=== PATIENT | male | born 1935 | race Caucasian/White ===

== ENCOUNTER 2016-05-11 10:36 | Inpatient (IN) ==
[2016-05-11] MEDS ORDERED: Furosemide 40 MG/4 ML VIAL IVP ONE (11:26)
--- NOTE | 2016-05-11 11:27 | Emergency Department Note ---
Disposition Clinical Impression: Acute on chronic renal failure, Urinary retention, Multiple falls Closed right femoral fracture Qualifiers: Encounter type: initial encounter Femur location: neck Qualified Code(s): S72.001A - Fracture of unspecified part of neck of right femur, initial encounter for closed fracture Disposition: Admitted As Inpatient Condition: Fair Time of Disposition: 12:57 General Adult HPI - General Chief complaint: ED Extremity Injury, Lower Stated complaint: fall, L leg pain Source: patient, family Limitations: no limitations Nursing Notes Reviewed: Yes Vital Signs Reviewed: Yes - History of Present Illness HPI Narrative: 72-year-old male history of A. fib, not on anticoagulants, CHF, gout, presents with left and right extremity pain, patient had a previous workup from fall, pain with weightbearing on his left leg. Is a history of a left hip surgery, status post port postop arthroplasty, states at this time 2 days ago he fell onto his right hip again out of bed. Fell onto padded carpet. Denies any head or neck injury or loss of consciousness. Denies chest pain, but he has had some shortness of breath recently. He also states that he has had increased fluid on his abdomen, increased swelling in his bilateral ankles. She does report that he has had decreased urinary output, and is urinating the last day. Remote history of prostate cancer. Patient denies weight loss, fever, chills, productive cough, hematuria, hematochezia, Onset (ago): day(s) (2) Location: left, right, lower extremity Pain Scale: 5 Improves with: nothing Worsens with: nothing Associated symptoms: Reports: cough, shortness of breath. Denies: malaise, nausea/vomiting, syncope - Related Data Home Medications Medication Instructions Recorded Confirmed Allopurinol [Zyloprim] 100 mg PO DAILY 05/11/16 05/11/16 Calcitriol [Rocaltrol] 0.25 mcg PO DAILY 05/11/16 05/11/16 Diltiazem HCl [Cartia Xt] 240 mg PO DAILY 05/11/16 05/11/16 Diphenhydramine HCl [Nighttime 100 mg PO HS 05/11/16 05/11/16 Sleep Aid] Famotidine [Acid Procurement Specialist] 10 mg PO DAILY 05/11/16 05/11/16 Folic Acid 1,200 mcg PO DAILY 05/11/16 05/11/16 Furosemide [Furosemide] 40 mg PO BID 05/11/16 05/11/16 HYDROcodone/Acet 5/325 mg [[place] 1 tab PO QID PRN 05/11/16 05/11/16 5-325 mg] Megestrol Acetate [Megace] 400 mg PO BID 05/11/16 05/11/16 Metoprolol Succinate [Toprol Xl] 100 mg PO BID 05/11/16 05/11/16 Tamsulosin [Flomax] 0.4 mg PO DAILY 05/11/16 05/11/16 TraZODone 50 mg PO HS 05/11/16 05/11/16 Allergies Allergy/AdvReac Type Severity Reaction Status Date / Time No Known Allergies Allergy Verified 05/06/16 12:16 Review of Systems: A 14 point ROS was obtained and was negative except as per below or as documented in the HPI. Constitutional: Denies: fever, chills, weakness, weight change Eyes: Denies: eye pain, eye discharge, vision change ENT: Denies: ear pain, throat pain, hearing loss, epistaxis, congestion, Cardiovascular: Denies: chest pain, palpitations, dyspnea on exertion, edema, syncope Respiratory: dyspnea Denies: cough, , wheezes, hemoptysis, stridor Gastrointestinal: Denies: abdominal pain, nausea, vomiting. diarrhea, constipation, hematemesis, hematochezia Genitourinary: hesitency Denies: urgency, dysuria, frequency, hematuria Musculoskeletal: Denies: back pain, neck pain, arthralgia, myalgia Integumentary: Denies: rash, abrasion, lesions Neurological: Denies: headache, weakness, numbness, paresthesias, confusion, abnormal gait Psychiatric: Denies: anxiety, depression, suicidal thoughts, homicidal thoughts , Endocrine: Denies: fatigue Hematological/Lymphatic: Denies: easy bleeding, easy bruising Allergic/Immunologic: Denies: facial swelling, urticaria All systems ED: reviewed and negative except as stated. Past Medical History - Past Medical History Attestation: Yes The following information was validated with the patient. Source: patient Medical history: Reports: arthritis, asthma, atrial fibrillation, cancer, CVA, hypertension Psychiatric history: Reports: no psych history - Social History Smoking Status: Former smoker Smokeless Tobacco Status: No Alcohol use: Reports: none Drug use: Reports: none Physical Exam General: alert and oriented, in NAD, appears stated age, is pleasant and cooperative to exam Head: NCAT, no lesions Eyes: sclera anicteric, conjunctiva normal, PERRLA bilaterally, EOMI Bilaterally Ears: normal inspection, external ear wnl Nose: nasal septum nondeviated, sinuses nontender Throat: good dentition, mucous membranes moist Neck: no lymphadenopathy, trachea midline no deviation, no JVD Resp: CTA bilaterally, no resp distress, symmetric chest rise, no wheezes, rales , or rhonchi bilaterally CV: Irregularly irregular normal S1 and S2, no m/g/r, Pulses +2 Rad, +2 DP/PT Abdomen: Soft, mildly distended no tenderness to palpation no hepatosplenomegaly , no hernias, Negative Rovsing's sign, Negative Jean's sign Back: normal inspection, no tenderness to palpation, Negative CVA tenderness bilaterally Neuro: A&O3, CN II-XII grossly intact bilaterally, no motor or sensory deficits bilaterally, gait normal, GCS 15 [id number] Ext: normal inspection, symmetric Active and Passive ROM UE and LE bilaterally , +2 pitting edema bilaterally Psych: normal mood, normal affect Skin: No rashes, skin warm, dry, intact - General Limitations: no limitations General appearance: alert, in no apparent distress Course Course Narrative: 80-year-old male with multiple falls in the last week, shortness of breath, concerns for worsening CHF, and IV diuresis, basic lab work with chest pain workup chest x-ray EKG reviewed shows no ST segment changes, right bundle branch block and A. fib, who will get imaging of his hips and right hip specifically and pelvis, also having right knee imaging. The patient on workup patient may need to come in for further eval. - Reevaluation(s) Reevaluation #1: I spoke with , his recommendation was to start IV antibiotics if urinalysis is positive, this point we are still placed a Hammer catheter, but he except the patient for admission for acute on chronic renal failure, volume overload dyspnea and hypoxia, right femoral neck fracture. Time: 12:56 - Consultations Consultation #1: Spoke with Dr. Stroud , he will see the patient on the floor, with Orthoconsultation, will need medical clearance prior to surgery. Vital Signs Temperature 96.7 F L 05/11/16 10:53 Pulse Rate 87 05/11/16 10:53 Respiratory Rate 20 05/11/16 10:53 Blood Pressure 90/59 05/11/16 10:53 O2 Sat by Pulse Oximetry 95 05/11/16 10:53 Temperature 96.7 F L 05/11/16 10:53 Pulse Rate 70 05/11/16 12:59 Respiratory Rate 14 05/11/16 12:59 Blood Pressure 89/67 05/11/16 12:59 O2 Sat by Pulse Oximetry 93 L 05/11/16 12:59 Oxygen Delivery Oxygen Delivery Nasal Cannula Medical Decision Making - MDM Narrative Medical decision making narrative: 80-year-old male with multiple falls, found to have a right closed femoral neck fracture, or those consultative, patient also has dyspnea, requiring 2 L of oxygen by nasal cannula, showing to be volume overloaded with vascular congestion on chest x-ray, lower extremity edema, acute on chronic renal failure , Hammer placed, treated UTI with antibiotics if indicated, admitted to medicine service in stable condition. - Lab Data Result diagrams: 05/11/16 11:32 05/11/16 11:32 Lab Results 05/11/16 05/11/16 05/11/16 Range/Units 11:32 11:32 11:32 WBC 13.0 H (4.3-11.1) K/mcL RBC 3.89 L (4.19-5.50) M/mcL Hgb 12.5 L D (12.9-16.9) g/dL Hct 39.3 (37.5-50.1) % MCV 101.0 H (83.0-100.0) fL MCH 32.1 (28.0-33.3) pg MCHC 31.8 (31.6-35.5) g/dL RDW 14.3 (11.5-14.5) % Plt Count 192 (140-400) K/mcL MPV 9.3 L (9.4-12.4) fL Immature Gran % 0.4 (0-4) % Seg Neutrophils % 86.5 % Lymphocytes % 5.3 % Monocytes % 6.2 % Eosinophils % 1.1 % Basophils % 0.5 % Neutrophils # 11.2 H (1.6-8.9) K/mcL Lymphocytes # 0.7 (0.6-4.6) K/mcL Monocytes # 0.8 (0.0-1.3) K/mcL Eosinophils # 0.1 (0.0-0.6) K/mcL Basophils # 0.1 (0.0-0.2) K/mcL Sodium 136 (136-145) mEq/L Potassium 5.5 H (3.5-4.5) mEq/L Chloride 105 (98-109) mEq/L Carbon Dioxide 19 (19-29) mEq/L BUN 78 H (8-26) mg/dL Creatinine 3.96 H (0.72-1.25) mg/dL Est GFR ( Amer) 18 L (> 60) Est GFR (Non-Af Amer) 15 L (> 60) BUN/Creatinine Ratio 20 (6-26) Glucose 120 H (70-99) mg/dL Calculated Osmolality 307 H (280-300) Lactic Acid (0.5-2.2) mmol/L Uric Acid (3.5-7.2) mg/dL Calcium 9.4 (8.6-10.8) mg/dL Troponin I 0.02 (0-0.03) ng/mL B-Natriuretic Peptide (0-100) pg/mL 05/11/16 05/11/16 05/11/16 Range/Units 11:32 11:33 12:30 WBC (4.3-11.1) K/mcL RBC (4.19-5.50) M/mcL Hgb (12.9-16.9) g/dL Hct (37.5-50.1) % MCV (83.0-100.0) fL MCH (28.0-33.3) pg MCHC (31.6-35.5) g/dL RDW (11.5-14.5) % Plt Count (140-400) K/mcL MPV (9.4-12.4) fL Immature Gran % (0-4) % Seg Neutrophils % % Lymphocytes % % Monocytes % % Eosinophils % % Basophils % % Neutrophils # (1.6-8.9) K/mcL Lymphocytes # (0.6-4.6) K/mcL Monocytes # (0.0-1.3) K/mcL Eosinophils # (0.0-0.6) K/mcL Basophils # (0.0-0.2) K/mcL Sodium (136-145) mEq/L Potassium (3.5-4.5) mEq/L Chloride (98-109) mEq/L Carbon Dioxide (19-29) mEq/L BUN (8-26) mg/dL Creatinine (0.72-1.25) mg/dL Est GFR ( Amer) (> 60) Est GFR (Non-Af Amer) (> 60) BUN/Creatinine Ratio (6-26) Glucose (70-99) mg/dL Calculated Osmolality (280-300) Lactic Acid 1.2 (0.5-2.2) mmol/L Uric Acid 7.5 H (3.5-7.2) mg/dL Calcium (8.6-10.8) mg/dL Troponin I (0-0.03) ng/mL B-Natriuretic Peptide 313 H (0-100) pg/mL - Radiology Data Radiology results reviewed: Yes I reviewed the patient's radiology results. Chest X-Ray 05/11/16 11:17 IMPRESSION: Vascular congestion. D/ / 05/11/2016 12:34:30 Carlin Estrada MD / zoe Interpreting Provider: Carlin Estrada MD Hip X-Ray 05/11/16 11:22 IMPRESSION: Right femoral neck fracture. D/ / 05/11/2016 12:33:03 Carlin Estrada MD / oral Interpreting Provider: Carlin Estrada MD Knee X-Ray 05/11/16 11:23 IMPRESSION: No acute osseous abnormality. D/ / 05/11/2016 12:33:40 Carlin Estrada MD / oral Interpreting Provider: Carlin Estrada MD - EKG Data EKG #1 EKG attestation: Yes I reviewed and interpreted this EKG. Rate: normal (61 bpm, irregularly irregular) Rhythm: A.Fib [place]/QRS: RBBB (Sabel from previous EKG on 05/06/2016) Interpretation: unchanged when compared to prior tracing (date) - Core Measures AMI Core Measures Followed: No Measure Exclusions: not indicated Critical Care Time Critical Care Time: Yes Total Critical Care Time: 35 Attestation: treatment of hypotension, hip fracture, and CHF. Attestation Statement - Attestation Attestation: Patient was seen with resident physician. I reviewed the history, physical, assessment and plan, and agree with the findings. I also personally evaluated this patient and had [id number] time with this patient. Justo is a 80-year- old male who presents emergency Department after falling. He got up out of bed tripped and fell landing on his left hip. Now with left hip and knee pain and difficulty ambulating. Also notes that he has had worsening shortness of breath for the last 1 week. He has a history of CHF he is not making much urine. And his is concerned about that. He also has increased swelling lower extremities bilaterally. On examination patient's mental status is good. His heart and lungs heart is normal, lungs decreased air movement with some increased work of breathing. Abdomen is soft and nontender. Extremities tender in the left hip. Mild swelling bilaterally. Distal pulses are intact. Workup on this patient revealed a variety of abnormalities he has known A. fib. But appears to be in worsening CHF. His blood pressure is also lower, and his renal function has worsened considerably. In addition he has a compressed femoral neck fracture. Due to his variety of comorbidities and need for surgical correction, as well as fluid imbalance correction, he will be admitted. Discussed with Ortho and Hospitalist. Agree present physician assessment and plan. Critical care time 35 minutes.
[2016-05-11 11:39] LABS: Basophils # 0.1 K/mcL (0.0-0.2); Basophils % 0.5 %; Eosinophils # 0.1 K/mcL (0.0-0.6); Eosinophils % 1.1 %; Hematocrit 39.3 % (37.5-50.1); Hemoglobin 12.5 g/dL (12.9-16.9); Immature Granulocytes % 0.4 % (0-4); Lymphocytes # 0.7 K/mcL (0.6-4.6); Lymphocytes % 5.3 %; Mean Corpuscular HGB Conc 31.8 g/dL (31.6-35.5); Mean Corpuscular Hemoglobin 32.1 pg (28.0-33.3); Mean Platelet Volume 9.3 fL (9.4-12.4); Monocytes # 0.8 K/mcL (0.0-1.3); Monocytes % 6.2 %; Neutrophils # 11.2 K/mcL (1.6-8.9); Platelet Count 192 K/mcL (140-400); Red Blood Count 3.89 M/mcL (4.19-5.50); Red Cell Distribution Width 14.3 % (11.5-14.5); Segmented Neutrophils % 86.5 %
[2016-05-11 11:54] LABS: Calcium 9.4 mg/dL (8.6-10.8); Potassium 5.5 mEq/L (3.5-4.5)
[2016-05-11] MEDS ORDERED: 0.9 % Sodium Chloride 500 ML IV ONE (12:35)
[2016-05-11 13:28] LABS: Bilirubin,Urine Moderate (Negative); Blood,Urine Negative (Negative); Clarity,Urine Clear (Clear); Color,Urine Dark Yellow (Yellow); Glucose,Urine (UA) Normal (Normal); Ketones,Urine Negative (Negative); Leukocyte Esterase,Urine Trace (Negative); Nitrite,Urine Negative (Negative); PH,Urine 5.5 pH Units (5.0-8.0); Protein,Urine Negative (Neg-Trace); Specific Gravity,Urine 1.022 (1.010-1.025); Urobilinogen,Urine Normal (Normal)
[2016-05-11 13:30] LABS: Bacteria,Urine None Seen per hpf (None-Few); Hyaline Casts,Urine Few per lpf (None-Few); Squamous Epithelial Cell,Urine Many per lpf (None-Few); WBC,Urine 0-3 per hpf (0-3)
[2016-05-11] MEDS ORDERED: Ondansetron 4 MG/2 ML VIAL IVP PRN (14:19)
[2016-05-11] MEDS ORDERED: Naloxone 0.4 MG/ML INJ IVP PRN (14:19)
[2016-05-11] MEDS ORDERED: *HR* Morphine 2 MG/ML SYRINGE IVP PRN (14:19)
--- NOTE | 2016-05-11 14:43 | Internal Med History&Physical ---
<Doc Lucas - Last Filed: 05/11/16 14:40> Date of Encounter: 05/11/16 Time of Encounter: 14:40 Assessment and Plan (1) Hip fracture Current visit: Yes Status: Acute right femoral neck fracture. Currently hemodynamically stable. neurovasculature intact. consult orthopedic surgery Pain control performed surgical risk calculation with NSQUIP. At this time we would recommend that the benefit of surgery would out weigh the risk. Recommend continue Beta zina in the perioperative period. would also recommend holding off on surgery until patient has echocardiogram and also seen and evaluated by Nephrology. (2) Acute worsening of stage 3 chronic kidney disease Current visit: Yes Status: Acute CHAVO on CKD From the history I think this is likely from a combination of NSAIDS and Diuretics. He had zuleta placed and had very little urine out on insertion. Very dark urine Possibly ATN? Plan: Gentle IV hydration avoid all nephrotoxin check FeURea and urine eosinophils. US to r/o obstruction given his history of prostate Cancer. check Uric acid. Continue zuleta as we will need strict I's and O's check UA and Pr/Cr ratio. Consult Nephrology. I appreciate Dr. Leon's assistance. (3) Dyspnea Current visit: Yes Status: Acute Etiology possibly from volume overload. Has BNP of 313. CXr surrestive of RLL air space disease and possibly pulmonary vascular congestion. I reviewed this image myself. Not very impressive for volume overload. Will give Rocephin IV for possible CAP. (4) Community acquired pneumonia Current visit: Yes Status: Acute as stated above (5) Hyperkalemia Current visit: Yes Status: Acute 30 grams of Kayexalate now. 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 (7) Gout Current visit: Yes Status: Acute hold off on treatment at this time as he dose not appear to be in acute flair (8) Atrial fibrillation Current visit: Yes Status: Acute currently rate controlled. Not on antcoagulation as he has had a history of brain bleeding. (9) Edema Current visit: Yes Status: Acute etiology likely from renal failure. However will get Echo to r/o heart failure. (10) DVT prophylaxis Current visit: Yes Status: Acute SQ heparin Internal Medicine - H&P: HPI Chief complaint: fall Admitted From: Emergency Dept Plans for Post Hospital Care: Home History of present illness: Mr. Leon is a 80 year old male with past medical history that is significant for atrial fibrillation, not on anticoagulation due to past hemorrhagic strokes 2, CJD stage III, gout, chronic low back pain, who comes to the ER with the chief complaint of fall and hip pain. His is also present who confirms the history. States that over the past week he has been becoming progressively edematous. Also complains of some exertional dyspnea. States that he had a gout flare approximately a week ago and has been taking between 150-200 mg and indomethacin daily. He states that he has not made any urine over the past 2 days. He denies any fevers chills or productive cough, wheeze, malaise. He denies any dysuria hematuria but does admit to change in urinary habits with decreased urination over the past 2-3 days. He denies any other recent med change other than the addition of trazodone to help with sleep at night. He denies taking any other NSAIDs. He denies any recent illnesses hospitalizations or CT scans with dye. He denies any trauma or head injury or loss of consciousness with the fall. He states it was a mechanical fall as he was trying to put on his underwear this happened. His confirms his story as well. He has no further complaints at this time. At this time he says he is comfortable and pain-free. He has no further complaints. ER course Patient has received 40 mg of Lasix IV. He is also had 500 mL of normal saline. He did have a Zuleta catheter placed there is approximately 30 mL in the Zuleta bag at this time and is dark and cola Colored Past Med Surg Social Fam HX - Past Medical History Medical history: arthritis, asthma, atrial fibrillation, cancer, CVA, hypertension Psychiatric history: no psych history - Past Surgical History Surgical History: other (Cholecystectomy, back surgery, brachytherapy for prostate cancer, skin biopsy, left total hip) - Social History Smoking Status: Former smoker Smokeless Tobacco Status: No Alcohol use: none Drug use: none Internal Medicine - H&P: Meds Allopurinol [Zyloprim] 100 mg PO DAILY 05/11/16 [History] Calcitriol [Rocaltrol] 0.25 mcg PO DAILY 05/11/16 [History] Diltiazem HCl [Cartia Xt] 240 mg PO DAILY 05/11/16 [History] Diphenhydramine HCl [Nighttime Sleep Aid] 100 mg PO HS 05/11/16 [History] Famotidine [Acid Irrigation Manager] 10 mg PO DAILY 05/11/16 [History] Folic Acid 1,200 mcg PO DAILY 05/11/16 [History] Furosemide [Furosemide] 40 mg PO BID 05/11/16 [History] HYDROcodone/Acet 5/325 mg [[place] 5-325 mg] 1 tab PO QID PRN 05/11/16 [History] Megestrol Acetate [Megace] 400 mg PO BID 05/11/16 [History] Metoprolol Succinate [Toprol Xl] 100 mg PO BID 05/11/16 [History] Tamsulosin [Flomax] 0.4 mg PO DAILY 05/11/16 [History] TraZODone 50 mg PO HS 05/11/16 [History] Allergies No Known Allergies Allergy (Verified 05/06/16 12:16) All Systems PM: A 10-system review of systems was performed and is negative for pertinent findings except as documented above in the HPI. Review of systems: HEENT: Denies headache or neck pain, denies sore throat, denies hearing or vision change, Heart: Denies chest pain, exertional dyspnea, palpitations, orthopnea, paroxysmal nocturnal dyspnea, syncope, presyncope. Lungs: As per history of present illness GI: Denies nausea vomiting diarrhea constipation melena bloody stool : Denies dysuria hematuria or change in frequency denies difficulty in urination. Musculoskeletal: As per history of present illness Integument: Denies rashes lesions or changes to the skin. Neurological: Denies focal motor or sensory deficits. Denies seizures. Psychological: Denies depression, anxiety, mood swings. Constitutional: Denies fevers chills, night sweats, weight loss, or weight gain. Denies malaise. - Constitutional Vitals: Temp Pulse Resp BP Pulse Ox 97.4 F L 73 18 103/72 95 05/11/16 14:20 05/11/16 14:20 05/11/16 14:20 05/11/16 14:20 05/11/16 14:20 Exam: General: This is a well-developed well-nourished 80-year-old male is currently lying in bed in the emergency department. He is alert and orientated to person place time and situation. He is in no acute distress at this time. HEENT: Head is normocephalic atraumatic. Anicteric sclera, pupils equally round reactive to light and accommodation, moist mucous membranes, the tongue and trachea are midline. There is no cervical submandibular or supraclavicular lymphadenopathy palpable on exam. Heart: Heart has a regular rate and rhythm without murmurs rubs or gallops. No JVD. No carotid bruits. Radial pulses are 2 out of 4 and synchronous. Lungs: The lungs do have some mild crackles at the bases. He has a normal effort of breathing speaks in full sentences. Abdomen: The abdomen is mildly distended, bowel sounds are positive, no tenderness to palpation over no organomegaly or bruits noted. Musculoskeletal: Grossly normal for age. He does have a deformity of the right leg as he has shortened and externally rotated lower extremity. Otherwise no deformities noted. Integument: No rashes or lesions noted. Extremities: He does have a 2+ pitting pedal edema up to the level of the knee bilaterally. No clubbing or cyanosis. Internal Med - H&P Results - Labs CBC & Chem 7: 05/11/16 11:32 05/11/16 11:32 Labs: Urine 05/11/16 Range/Units 13:20 Urine Color Dark Yellow (Yellow) Urine Clarity Clear (Clear) Urine pH 5.5 (5.0-8.0) pH Units Ur Specific [place] 1.022 (1.010-1.025) Urine Protein Negative (Neg-Trace) mg/dL Urine Glucose (UA) Normal (Normal) mg/dL <Royce Hart - Last Filed: 05/11/16 17:16> Date of Encounter: 05/11/16 Assessment and Plan (1) Acute renal failure due to tubular necrosis Current visit: Yes Status: Suspected Hydrate cautiously. Monitor I/Os. (2) Hyperkalemia Current visit: Yes Status: Acute (3) Atrial fibrillation Current visit: Yes Status: Acute Qualifiers: Atrial fibrillation type: chronic Qualified Code(s): I48.2 - Chronic atrial fibrillation (4) Community acquired pneumonia Current visit: Yes Status: Acute (5) Fracture of femoral neck Current visit: Yes Status: Acute Qualifiers: Encounter type: initial encounter Fracture type: closed Laterality: right Qualified Code(s): S72.001A - Fracture of unspecified part of neck of right femur, initial encounter for closed fracture (6) Multiple falls Current visit: Yes Status: Acute (7) DVT prophylaxis Current visit: Yes Status: Acute Internal Medicine - H&P: HPI History of present illness: Mr. Leon is a 80 year old male All Systems PM: A 10-system review of systems was performed and is negative for pertinent findings except as documented above in the HPI. - Constitutional Vitals: Temp Pulse Resp BP Pulse Ox 97.4 F L 73 18 103/72 95 05/11/16 14:20 05/11/16 14:20 05/11/16 14:20 05/11/16 14:20 05/11/16 14:20 Internal Med - H&P Results - Labs CBC & Chem 7: 05/11/16 11:32 05/11/16 11:32 Labs: Liver Function 05/11/16 Range/Units 14:59 Total Bilirubin 0.8 (0.2-1.2) mg/dL Direct Bilirubin 0.5 (0.0-0.5) mg/dL AST 12 (5-34) Units/L ALT 15 (0-55) Units/L Alkaline Phosphatase 97 (38-126) Units/L Albumin 2.7 L (3.5-5.0) g/dL Urine 05/11/16 Range/Units 13:20 Urine Color Dark Yellow (Yellow) Urine Clarity Clear (Clear) Urine pH 5.5 (5.0-8.0) pH Units Ur Specific [place] 1.022 (1.010-1.025) Urine Protein Negative (Neg-Trace) mg/dL Urine Glucose (UA) Normal (Normal) mg/dL - Impressions ITS Impressions Retroperitoneum Ultrasound 05/11/16 14:36 IMPRESSION: 1. No evidence of obstruction. 2. Increased cortical echogenicity consistent with medical renal disease. D/ / Edgardo Noble / Edgardo Noble Interpreting Provider: Edgardo Noble - Attending Attestation I examined this patient and my medical decision-making was reviewed with the Resident Physician. I agree with the documented findings, disposition and treatment plan as described except to the extent set forth below. Mr. Leon is a 80 y/o male with a history of atrial fibrillation (not on anticoagulation due to 2 prior hemorrhagic CVAs) presented to ED after a fall. He was trying to put on his underwear and had a mechanical fall on his R side. He was brought to ED and found to have a R femoral neck fracture. His other history is significant for a recent gout flare approximately 2 weeks ago. He has been taking Indomethacin 150-200mg daily for this condition. He has noticed increasing edema over the last week and decreased urine output over last 2 days. No CP. No cough. Exam Alert. Pleasant Mild resp distress at rest in bed Mucus membranes moist Heart irreg - no overt murmur Lungs diminished R base with scant crackles bilaterally Abd soft and nontender Edema present Labs from ED reviewed I/P 1. Acute renal failure - most likely ATN or AIN related to indocin. Cautious IV fluids. No diuretics at this time. Renal ultrasound does not show obstruction. Strict I/Os. 2. Acute fracture R femoral neck - ortho consult. 3. Chronic a fib 4. Gout - not in exacerbation. 5. Hyperkalemia - Kayexalate given. Other diagnoses and plan as above. Pt is currently seriously ill with acute renal failure. He is at high risk for respiratory decompensation and need for dialysis. He also is at high risk for complications from acute femur fracture.
[2016-05-11] MEDS: *HR* Heparin 5,000 UNIT/ML VIAL SQ SCH ×2 (15:31→23:33)
[2016-05-11] MEDS: *HR* OxyCODONE Immed Rel 5 MG TABLET PO PRN ×2 (15:31→23:51)
[2016-05-11] MEDS: 0.9 % Sodium Chloride 1,000 ML IVC SCH (15:34)
[2016-05-11 15:36] LABS: Albumin 2.7 g/dL (3.5-5.0); Albumin/Globulin Ratio 0.7 (1.1-2.2); Bilirubin,Direct 0.5 mg/dL (0.0-0.5); Bilirubin,Indirect 0.3 mg/dL (0.0-1.2); Bilirubin,Total 0.8 mg/dL (0.2-1.2); Globulin 3.8 g/dL (2.4-3.5); Total Protein 6.5 g/dL (6.0-8.3)
[2016-05-11 17:45] LABS: Calcium 9.1 mg/dL (8.6-10.8); Potassium 5.2 mEq/L (3.5-4.5)
[2016-05-11] MEDS: Megestrol Acetate 400 MG/10 ML UDC PO SCH (20:35)
[2016-05-11] MEDS: Metoprolol XL (24 HR) Succ 50 MG TAB.ER.24H PO SCH (20:35)
[2016-05-11] MEDS ORDERED: traZODone 50 MG TABLET PO SCH (21:00)
[2016-05-12] MEDS: 0.9 % Sodium Chloride 1,000 ML IVC SCH (05:45)
[2016-05-12 05:55] LABS: Eosinophils # 0.2 K/mcL (0.0-0.6); Hematocrit 36.9 % (37.5-50.1); Hemoglobin 11.5 g/dL (12.9-16.9); Mean Corpuscular HGB Conc 31.2 g/dL (31.6-35.5); Mean Corpuscular Hemoglobin 31.7 pg (28.0-33.3); Mean Corpuscular Volume 101.7 fL (83.0-100.0); Mean Platelet Volume 9.3 fL (9.4-12.4); Monocytes # 0.6 K/mcL (0.0-1.3); Platelet Count 187 K/mcL (140-400); Red Blood Count 3.63 M/mcL (4.19-5.50); Red Cell Distribution Width 14.2 % (11.5-14.5)
[2016-05-12 06:05] LABS: INR 1.1; Prothrombin Time 12.4 Seconds (9.4-12.1)
[2016-05-12 06:19] LABS: Albumin 2.7 g/dL (3.5-5.0); Albumin/Globulin Ratio 0.8 (1.1-2.2); Bilirubin,Total 0.8 mg/dL (0.2-1.2); Calcium 8.7 mg/dL (8.6-10.8); Globulin 3.3 g/dL (2.4-3.5); Magnesium 2.4 mg/dL (1.6-2.6); Phosphorous 5.3 mg/dL (2.3-4.7)
[2016-05-12 06:26] LABS: Lymphocytes # 0.6 K/mcL (0.6-4.6); Platelet Estimate Normal (Normal)
[2016-05-12 06:27] LABS: Large Platelets Present (Not Present); Microcytosis Present (Not Present)
[2016-05-12] MEDS: *HR* OxyCODONE Immed Rel 5 MG TABLET PO PRN (06:51)
[2016-05-12] MEDS: Metoprolol XL (24 HR) Succ 50 MG TAB.ER.24H PO SCH ×2 (07:34→23:02)
[2016-05-12] MEDS: Megestrol Acetate 400 MG/10 ML UDC PO SCH ×2 (07:51→07:54)
[2016-05-12] MEDS: *HR* Heparin 5,000 UNIT/ML VIAL SQ SCH (07:52)
--- NOTE | 2016-05-12 08:51 | Internal Med Progress Note ---
Date of Encounter: 05/12/16 Time of Encounter: 08:15 - Assessment and plan (1) Acute renal failure due to tubular necrosis Current Visit: Yes Status: Suspected Assessment and plan: Creatinine did not improve much overnight. Has been receiving IV fluids at a slow rate during the night. Ultrasound did not show obstruction. Renal to see today. Holding nephrotoxins. Pt seems more dyspneic this morning so will decrease IV rate. (2) Hyperkalemia Current Visit: Yes Status: Acute Assessment and plan: Persists but he is still having loose stools from Kayexalate yesterday. Following. (3) Atrial fibrillation Current Visit: Yes Status: Acute Assessment and plan: Cardiology consult for preop eval. Echo to be done today as well. Currently rate controlled. 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 Qualifiers: Atrial fibrillation type: chronic Qualified Code(s): I48.2 - Chronic atrial fibrillation (4) Community acquired pneumonia Current Visit: Yes Status: Acute Assessment and plan: On IV Ceftriaxone. Will recheck portable CXR today. (5) Fracture of femoral neck Current Visit: Yes Status: Acute Assessment and plan: Pt not medically optimized for surgery at this time. His renal function is still terrible and his K is still slightly elevated. Hopefully will be able to have repaired in next 1-2 days. Qualifiers: Encounter type: subsequent encounter Fracture type: closed Laterality: right Qualified Code(s): S72.001D - Fracture of unspecified part of neck of right femur, subsequent encounter for closed fracture with routine healing (6) Insomnia due to medical condition Current Visit: Yes Status: Acute Assessment and plan: PRN medication ordered. (7) Multiple falls Current Visit: Yes Status: Acute Assessment and plan: Will have PT/OT evals post surgery. (8) CKD (chronic kidney disease) Current Visit: No Status: Chronic Qualifiers: Chronic kidney disease stage: stage 3 (moderate) Qualified Code(s): N18.3 - Chronic kidney disease, stage 3 (moderate) (9) DVT prophylaxis Current Visit: Yes Status: Acute Assessment and plan: Subqu heparin - Subjective Interval history: Mr. Leon is currently admitted for acute R femoral neck fracture complicated by acute renal failure. He is high risk due to continued renal failure with hyperkalemia as well as apparent early fluid overload, presumed CAP and acute fracture. Mr. Leon did not sleep well due to pain and loose stools (from Kayexalate). States his breathing is normal for him at this time. Pain is currently controlled with current regimen. No CP. No abd pain. Has had urine output but not very much overall (he is over 600ml positive fluid balance). His K is still slightly elevated. He is still not medically optimized for surgery due to his renal function. He is to have echocardiogram today and cardiology and nephrology have been consulted. - Constitutional Vitals: Temp Pulse Resp BP Pulse Ox 97.7 F 81 18 98/53 96 05/12/16 07:12 05/12/16 07:12 05/12/16 07:12 05/12/16 07:12 05/12/16 07:12 General appearance: Present: mild distress, A&O X 3, pleasant, answers questions appropriately - Head Head exam: Present: normocephalic - Eye Eye exam: Present: EOMI, conjuntiva pink - ENT ENT exam: Present: mucous membranes dry - Neck Additional comments: No JVD noted at this time. - Respiratory Respiratory exam: Present: decreased breath sounds. Absent: rhonchi, wheezes Additional comments: Scant rales in bases. - Cardiovascular Cardiovascular exam: Present: irregular rhythm. Absent: tachycardia - GI/Abdominal GI/Abdominal exam: Present: hyperactive bowel sounds, soft. Absent: mass, tenderness - Extremities Exam Extremities exam: Present: warm. Absent: pedal edema - Neurological Exam Neurological exam: Present: alert, oriented X3 - Psychiatric Psychiatric exam: Present: normal affect, normal mood - Skin Skin exam: Present: dry, warm. Absent: rash Internal Medicine: Result - Labs CBC & Chem 7: 05/12/16 05:41 05/12/16 05:41 Labs: Short CBC 05/12/16 Range/Units 05:41 WBC 10.5 (4.3-11.1) K/mcL Hgb 11.5 L (12.9-16.9) g/dL Hct 36.9 L (37.5-50.1) % Plt Count 187 (140-400) K/mcL Neutrophils # 9.0 H (1.6-8.9) K/mcL BMP 05/11/16 05/12/16 17:23 05:41 Sodium 138 139 Potassium 5.2 H 5.0 H Chloride 104 106 Carbon Dioxide 22 24 BUN 80 H 83 H Creatinine 4.00 H 3.99 H Glucose 139 H 128 H Calcium 9.1 8.7 Liver Function 05/11/16 05/12/16 Range/Units 14:59 05:41 Total Bilirubin 0.8 0.8 (0.2-1.2) mg/dL Direct Bilirubin 0.5 (0.0-0.5) mg/dL AST 12 8 (5-34) Units/L ALT 15 11 (0-55) Units/L Alkaline Phosphatase 97 130 H (38-126) Units/L Albumin 2.7 L 2.7 L (3.5-5.0) g/dL Urine 05/11/16 Range/Units 13:20 Urine Color Dark Yellow (Yellow) Urine Clarity Clear (Clear) Urine pH 5.5 (5.0-8.0) pH Units Ur Specific [place] 1.022 (1.010-1.025) Urine Protein Negative (Neg-Trace) mg/dL Urine Glucose (UA) Normal (Normal) mg/dL - ABG Interpretation ABG results: PT/INR, D-dimer PT 12.4 Seconds (9.4-12.1) H 05/12/16 05:41 - Impressions Impressions Retroperitoneum Ultrasound 05/11/16 14:36 IMPRESSION: 1. No evidence of obstruction. 2. Increased cortical echogenicity consistent with medical renal disease. D/ / Edgardo Noble / Edgardo Noble Interpreting Provider: Edgardo Noble Consult Discharge Plan - Plan Referrals: Marisa Dobbs, WELL TESTING OPERATOR [Primary Care Provider] -
[2016-05-12] MEDS ORDERED: Folic Acid 1 MG TABLET PO SCH (09:00)
[2016-05-12] MEDS ORDERED: Pantoprazole 40 MG VIAL IVP SCH (09:00)
[2016-05-12] MEDS ORDERED: Famotidine 20 MG TABLET PO SCH (09:00)
[2016-05-12] MEDS ORDERED: Diltiazem CD (24hr) 240 MG CAPSULE PO SCH (09:00)
[2016-05-12] MEDS ORDERED: 0.9 % Sodium Chloride 1,000 ML IVC SCH ×2 (09:05→20:26)
--- NOTE | 2016-05-12 11:34 | Cardiology Consult Note ---
Addendum entered and electronically signed by eHather Carbajal Jr, MD 05/12/16 12: 52: I examined this patient and my medical decision-making was reviewed with the HELICOPTER REPAIRER/PA/Advanced Practice Nurse/Resident Physician. I agree with the documented findings, disposition and treatment plan as described except to the extent set forth below. Patient seen and evaluated. Agree with echo to assess EF. Moderate risk patient for possibly urgent moderate risk Hip surgery. Patient is not a candidate for [facility] antico[facility] for Afib. Original Note: Date of Encounter: 05/12/16 Time of Encounter: 11:32 Assessment and Plan (1) Pre-operative cardiovascular examination Current Visit: Yes Status: Acute Pre-op risk stratification for right hip fracture. Pt with hx of A-Fib s/p ablation, then with recurrence. Not anticoagulated due to hx of hemorrhagic CVAs. Currently rate controlled A-Fib, but BB and CCB have been held in setting of hypotension. Worsening dyspnea and lower extremity edema per pt--likely secondary to renal failure. Obtain echo to evaluate heart structure and function and determine risk stratification. Will continue to follow. (2) Acute worsening of stage 3 chronic kidney disease Current Visit: Yes Status: Acute CHAVO on CKD stage 3. Nephrology consulted and managing. (3) Atrial fibrillation Current Visit: Yes Status: Acute Currently rate controlled--12 hour tele AVG HR 85, but CCB and BB held this AM due to hypotension. Hx of ablation. Will need to monitor closely. Anticoagulation contraindication due to history of hemorrhagic CVAs. Qualifiers: Atrial fibrillation type: chronic Qualified Code(s): I48.2 - Chronic atrial fibrillation Discussion w patient/family: The assessment and plan as outlined above was discussed with the patient and/or family members who expressed understanding and agreement. All questions were answered. Thank you for involving us in the care of your patient. Please call with any questions. I will discuss all the above with Dr. Carbajal and make changes as necessary. History of Present Illness Consult date: 05/12/16 Requesting physician: Royce Hart Consult reason: pre-op Chief complaint: hip pain History of present illness: Mr. Leon is a 80 year old male with PMH of atrial fibrillation, not on anticoagulation due to past hemorrhagic strokes 2, hx of past A-Fib ablation, CKD stage III, gout, chronic low back pain, who presented to the ER with the chief complaint of fall and hip pain. Also report over the past week he has been becoming progressively edematous. Complains of some exertional dyspnea, but states he has had it for years. He admitted to change in urinary habits with decreased urination over the past 2-3 days. He denies any other recent med change other than the addition of trazodone to help with sleep at night. He denies any trauma or head injury or loss of consciousness with the fall. He states it was a mechanical fall as he was trying to put on his underwear this happened. Cardiology has been consulted for pre-op risk stratification. Pt and report he had a LHC many years ago--in his 40s or 50s without stent placement. He follows with a wood casket maker in [place] yearly--Dr. Kwon. Past Med Surg Social Fam HX - Past Medical History Medical history: arthritis, asthma, atrial fibrillation, cancer, CVA, hypertension Psychiatric history: no psych history - Past Surgical History Surgical History: other (Cholecystectomy, back surgery, brachytherapy for prostate cancer, skin biopsy, left total hip) - Social History Smoking Status: Former smoker Smokeless Tobacco Status: No Alcohol use: none Drug use: none Medications and Allergies Diltiazem HCl [Cartia Xt] 240 mg PO DAILY 05/11/16 [History] Diphenhydramine HCl [Nighttime Sleep Aid] 100 mg PO HS 05/11/16 [History] Famotidine [Acid Life Insurance Actuary] 10 mg PO DAILY 05/11/16 [History] Furosemide [Furosemide] 40 mg PO BID 05/11/16 [History] Metoprolol Succinate [Toprol Xl] 100 mg PO BID 05/11/16 [History] RX: Allopurinol [Zyloprim] 100 mg PO DAILY 05/11/16 [History] RX: Calcitriol [Rocaltrol] 0.25 mcg PO DAILY 05/11/16 [History] RX: Folic Acid 1,200 mcg PO DAILY 05/11/16 [History] RX: HYDROcodone/Acet 5/325 mg [[place] 5-325 mg] 1 tab PO QID PRN 05/11/16 [ History] RX: Megestrol Acetate [Megace] 400 mg PO BID 05/11/16 [History] RX: Tamsulosin [Flomax] 0.4 mg PO DAILY 12/17/16 [History] RX: TraZODone 50 mg PO HS 05/11/16 [History] Allergies No Known Allergies Allergy (Verified 05/06/16 12:16) All Systems Review: A 10-system review of systems was performed and is negative for pertinent findings except as documented above in the HPI. - Cardiovascular Cardiovascular: as per HPI, dyspnea on exertion, leg edema - Respiratory Respiratory: dyspnea - Musculoskeletal Musculoskeletal: other (right hip pain) Physical Examination Vital Signs, Last 4 Hours Temp Pulse Resp BP Pulse Ox 05/12/16 11:30 98.0 F 98 16 90/62 95 Vital Signs Temp Pulse Resp BP Pulse Ox 05/12/16 11:30 98.0 F 98 16 90/62 95 05/12/16 07:12 97.7 F 81 18 98/53 96 05/12/16 04:52 97.7 F 84 14 106/51 95 05/12/16 00:08 98 F 80 15 93/58 94 L 05/11/16 20:55 93 L 05/11/16 19:42 98.1 F 72 17 94/49 93 L 05/11/16 14:20 97.4 F L 73 18 103/72 95 05/11/16 13:57 16 98/63 05/11/16 12:59 70 14 89/67 93 L 05/11/16 12:29 72 14 98/77 93 L Intake and Output 05/11/16 05/12/16 05/12/16 23:59 07:59 15:59 Intake Total 270 / 270 1000 / 1000 360 / 360 Output Total 400 / 400 275 / 275 Balance 270 / 270 600 / 600 85 / 85 Intake: IV Fluids 100 / 100 1000 / 1000 0.9 % Sodium Chloride 1, 1000 / 1000 000 ML @ 75 mls/hr IVC . [id number] [facility] Rx#: [id number] Rocephin 1,000 MG In 100 / 100 Dextrose 5% (Minibag+) 100 ML 100 ML @ 200 mls/ hr IVPB Q12HR [facility] Rx#: [id number] Oral 170 / 170 360 / 360 Output: Catheter 400 / 400 275 / 275 Other: Meal Dinner Breakfast Percent of Meal Consumed 10% 0% Stool Size Small Small Stool Consistency soft loose Stool Characteristics Normal for Patient [place] Stool Color Brown Brown # Bowel Movements 1 General: Conversant, No Apparent Distress HEENT: Atraumatic, Normocephaly, Mucus Membranes Moist Neck: Normal carotid pulses Cardiac: Other (irregularly irregular) Lungs: Other (diminished, slight rales) Neuro: Alert and responsive, No focal deficits noted Abdomen: Soft, Non-Tender Skin: No rashes noted on visualized skin Musculoskeletal: No Chest Wall Tenderness Extremities: Other (minimal BLE edema) Results 05/12/16 05:41 05/12/16 05:41 Lab Results 05/11/16 05/11/16 05/12/16 14:59 17:23 05:41 WBC 10.5 Hgb 11.5 L Hct 36.9 L Plt Count 187 INR Sodium 138 Potassium 5.2 H Chloride 104 Carbon Dioxide 22 BUN 80 H Creatinine 4.00 H Glucose 139 H Calcium 9.1 Magnesium Total Bilirubin 0.8 AST 12 ALT 15 Alkaline Phosphatase 97 Lipase 11 05/12/16 05/12/16 05:41 05:41 WBC Hgb Hct Plt Count INR 1.1 Sodium 139 Potassium 5.0 H Chloride 106 Carbon Dioxide 24 BUN 83 H Creatinine 3.99 H Glucose 128 H Calcium 8.7 Magnesium 2.4 Total Bilirubin 0.8 AST 8 ALT 11 Alkaline Phosphatase 130 H Lipase Short CBC 05/12/16 05/11/16 Range/Units 05:41 11:32 WBC 10.5 13.0 H (4.3-11.1) K/mcL Hgb 11.5 L 12.5 L D (12.9-16.9) g/dL Hct 36.9 L 39.3 (37.5-50.1) % Plt Count 187 192 (140-400) K/mcL Neutrophils # 9.0 H 11.2 H (1.6-8.9) K/mcL BMP 05/12/16 05/11/16 05/11/16 Range/Units 05:41 17:23 11:32 Sodium 139 138 136 (136-145) mEq/L Potassium 5.0 H 5.2 H 5.5 H (3.5-4.5) mEq/L Chloride 106 104 105 (98-109) mEq/L Carbon Dioxide 24 22 19 (19-29) mEq/L BUN 83 H 80 H 78 H (8-26) mg/dL Creatinine 3.99 H 4.00 H 3.96 H (0.72-1.25) mg/dL Glucose 128 H 139 H 120 H (70-99) mg/dL Calcium 8.7 9.1 9.4 (8.6-10.8) mg/dL Cardiac Enzymes 05/11/16 Range/Units 11:32 Troponin I 0.02 (0-0.03) ng/mL Liver Function 05/12/16 05/11/16 Range/Units 05:41 14:59 Total Bilirubin 0.8 0.8 (0.2-1.2) mg/dL Direct Bilirubin 0.5 (0.0-0.5) mg/dL AST 8 12 (5-34) Units/L ALT 11 15 (0-55) Units/L Alkaline Phosphatase 130 H 97 (38-126) Units/L Albumin 2.7 L 2.7 L (3.5-5.0) g/dL Urine 05/11/16 Range/Units 13:20 Urine Color Dark Yellow (Yellow) Urine Clarity Clear (Clear) Urine pH 5.5 (5.0-8.0) pH Units Ur Specific [place] 1.022 (1.010-1.025) Urine Protein Negative (Neg-Trace) mg/dL Urine Glucose (UA) Normal (Normal) mg/dL Impressions Chest X-Ray 05/11/16 11:17 IMPRESSION: Vascular congestion. D/ / 05/11/2016 12:34:30 Carlin Estrada MD / zoe Interpreting Provider: Carlin Estrada MD Hip X-Ray 05/11/16 11:22 IMPRESSION: Right femoral neck fracture. D/ / 05/11/2016 12:33:03 Carlin Estrada MD / oral Interpreting Provider: Carlin Estrada MD Knee X-Ray 05/11/16 11:23 IMPRESSION: No acute osseous abnormality. D/ / 05/11/2016 12:33:40 Carlin Estrada MD / oral Interpreting Provider: Carlin Estrada MD Retroperitoneum Ultrasound 05/11/16 14:36 IMPRESSION: 1. No evidence of obstruction. 2. Increased cortical echogenicity consistent with medical renal disease. D/ / Edgardo Noble / Edgardo Noble Interpreting Provider: Edgardo Noble Active Medications Diltiazem HCl (Cardizem Cd) 240 mg PO DAILY [facility] Stop: 11/11/16 09:01 Last Admin: 05/12/16 07:34 Dose: Not Given Famotidine (Pepcid) 10 mg PO DAILY [facility] Stop: 11/11/16 09:01 Last Admin: 05/12/16 07:51 Dose: 10 mg Folic Acid (Folic Acid) 1 mg PO DAILY [facility] Stop: 11/11/16 09:01 Last Admin: 05/12/16 07:52 Dose: 1 mg Heparin Sodium (Porcine) (Heparin) 5,000 unit SQ Q8HR [facility] Stop: 11/10/16 16:01 Last Admin: 05/12/16 07:52 Dose: 5,000 unit Ceftriaxone Sodium 1,000 mg/ (Dextrose) 100 mls @ 200 mls/hr IVPB Q12HR [facility] Stop: 11/10/16 18:01 Last Admin: 05/12/16 05:44 Dose: 200 mls/hr Sodium Chloride (0.9 % Sodium Chloride) 1,000 mls @ 50 mls/hr IVC .Q20H [facility] Stop: 11/10/16 14:31 Last Admin: 05/12/16 09:14 Dose: 50 mls/hr Megestrol Acetate (Megace) 400 mg PO BID [facility] PRN Reason: Protocol Stop: 11/10/16 21:01 Last Admin: 05/12/16 07:54 Dose: Not Given Metoprolol Succinate (Toprol Xl) 100 mg PO BID [facility] Stop: 11/10/16 21:01 Last Admin: 05/12/16 07:34 Dose: Not Given Morphine Sulfate (Morphine Sulfate) 2 mg IVP Q4HR PRN PRN Reason: Severe Pain (7-10) Stop: 11/10/16 14:20 Last Admin: 05/11/16 20:37 Dose: 2 mg Naloxone HCl (Narcan) 0.4 mg IVP Q2MIN PRN PRN Reason: Opioid Reversal Stop: 11/10/16 14:20 Ondansetron HCl (Zofran) 4 mg IVP Q8HR PRN PRN Reason: Nausea And Vomiting Stop: 11/10/16 14:20 Oxycodone HCl (Roxicodone) 5 mg PO Q6HR PRN PRN Reason: Moderate Pain (4-6) Stop: 11/10/16 14:20 Last Admin: 05/12/16 06:51 Dose: 5 mg Pantoprazole Sodium (Protonix) 40 mg IVP DAILY [facility] Stop: 11/11/16 09:01 Last Admin: 05/12/16 07:52 Dose: 40 mg Tamsulosin HCl (Flomax) 0.4 mg PO HS [facility] PRN Reason: Protocol Stop: 11/10/16 21:01 Last Admin: 05/11/16 20:35 Dose: 0.4 mg Trazodone HCl (Trazodone) 50 mg PO HS [facility] Stop: 11/10/16 21:01 Last Admin: 05/11/16 20:35 Dose: 50 mg - Imaging and Cardiology Chest Xray: report reviewed Echo: pending - EKG Interpretation EKG results cardiology: personally reviewed (A-Fib, rate 61, RBBB.) Consult Discharge Plan - Plan Referrals: Marisa Dobbs, WOOD COATER [Primary Care Provider] -
--- NOTE | 2016-05-12 11:36 | Nephrology Consult Note ---
Date of Encounter: 05/12/16 Time of Encounter: 11:27 Assessment and Plan (1) Acute on chronic renal failure Current Visit: Yes Status: Acute The patient has acute kidney injury superimposed on chronic kidney disease stage III. This is likely ATN of multiple etiologies. The patient was likely volume depleted based on his history of decreased oral intake for the past week. This is superimposed on taking diuretics for his high blood pressure. He then took NSAIDS for a gout flare. Currently the patient also has hypotension that may be affecting renal function as well. Renal ultrasound is negative for obstruction. Recommend continuing with MIV and consider a saline bolus. With patient's hypotension and minimal edema (possibly related to low oncotic pressure) patient seems to be intravascularly dry and could benefit from intravascular expansion with saline. Monitor respiratory status closely. Patient showing possible signs of recovery with increased urine output and minimal improvement in creatinine over a few hours. Discontinue diuretics and NSAIDS as discussed overnight. Avoid nephrotoxins. Adjust medications for renal function. With patient's anticipated surgery he will need support to prevent intraoperative hypotension. Recommend continuing with medical management for hyperkalemia. At this time there is no need for renal replacement therapy, but will follow closely. Thank you for allowing me to participate in the care of your patient. (2) Atrial fibrillation Current Visit: Yes Status: Acute Rate controlled. Qualifiers: Atrial fibrillation type: chronic Qualified Code(s): I48.2 - Chronic atrial fibrillation (3) Closed right femoral fracture Current Visit: Yes Status: Acute Management per orthopedic surgery. Qualifiers: Encounter type: initial encounter Femur location: neck Qualified Code(s) : S72.001A - Fracture of unspecified part of neck of right femur, initial encounter for closed fracture (4) Community acquired pneumonia Current Visit: Yes Status: Acute Agree that this is likely a CAP. May be the reason for the patient experiencing malaise over the past week. Consider coverage for atypical organisms as well. Monitor for fever or leukocytosis. (5) Hyperkalemia Current Visit: Yes Status: Acute See acute on chronic renal failure. Medical management. (6) Hypotension Current Visit: Yes Status: Acute Patient has a history of hypertension and is now hypotensive. Monitor for blood loss with hip fracture. Consider saline bolus for pressure support. Hold antihypertensive medications. No diuretics unless needed for respiratory purposes. Qualifiers: Qualified Code(s): I95.9 - Hypotension, unspecified (7) Anemia Current Visit: Yes Status: Acute Anemia with elevated MCV. Will check iron stores, vitamin b12 and folate. Qualifiers: Qualified Code(s): D64.9 - Anemia, unspecified (8) Hyperparathyroidism Current Visit: Yes Status: Acute History of elevated PTH. Will check current level. Check vitamin B12, phosphorus and replace calcium. History of Present Illness - Reason for Consult Consult date: 05/12/16 Acute Kidney Injury, Chronic Kidney Disease, hyperkalemia - Chief Complaint CHAVO on CKD and hyperkalemia. - History of Present Illness Mr. Leon is a 80 yo man with a history of CKD [address] Kelley who presents after a mechanical fall at home and was found to have a hip fracture and acute kidney injury on CKD Stage 3. The history is obtained from the patient, his and review of the electronic chart, while the patient does not provide reliable history his was able to provide significant details. Apparently the patient has not been feeling well for over a week. His describes the patient as having malaise, decreased oral intake and periodic alteration in his mentation. Mid week the patient experienced a gout flare and was treated with indomethacin starting the Friday prior admission. The day of admission he was attempting to get out of bed and slid to the floor. There was no loss of consciousness or head trauma. The patient was not complaining of lightheadedness, chest pain, or shortness of breath. In the hospital he did have mild dyspnea and hip pain, but no other complaints. His gout flare seems to have resolved. Consult was placed to assist with the acute kidney injury. Past Med Surg Social Fam HX - Past Medical History Medical history: arthritis, asthma, atrial fibrillation, cancer, CVA, hypertension Psychiatric history: no psych history - Past Surgical History Surgical History: other (Cholecystectomy, back surgery, brachytherapy for prostate cancer, skin biopsy, left total hip) - Social History Smoking Status: Former smoker Smokeless Tobacco Status: No Alcohol use: none Drug use: none Medications and Allergies Allopurinol [Zyloprim] 100 mg PO DAILY 05/11/16 [History] Calcitriol [Rocaltrol] 0.25 mcg PO DAILY 05/11/16 [History] Diltiazem HCl [Cartia Xt] 240 mg PO DAILY 05/11/16 [History] Diphenhydramine HCl [Nighttime Sleep Aid] 100 mg PO HS 05/11/16 [History] Famotidine [Acid Coffee Shop Manager] 10 mg PO DAILY 05/11/16 [History] Folic Acid 1,200 mcg PO DAILY 05/11/16 [History] Furosemide [Furosemide] 40 mg PO BID 05/11/16 [History] HYDROcodone/Acet 5/325 mg [[place] 5-325 mg] 1 tab PO QID PRN 05/11/16 [History] Megestrol Acetate [Megace] 400 mg PO BID 05/11/16 [History] Metoprolol Succinate [Toprol Xl] 100 mg PO BID 05/11/16 [History] Tamsulosin [Flomax] 0.4 mg PO DAILY 05/11/16 [History] TraZODone 50 mg PO HS 05/11/16 [History] Allergies No Known Allergies Allergy (Verified 05/06/16 12:16) Review of Systems All Systems: reviewed and no additional remarkable complaints except as stated ( as documented in the hpi) Constitutional: malaise Cardiovascular: no chest pain, no dyspnea Exam - Vital Signs Vital signs: Initial Vital Signs Temp Pulse Resp BP Pulse Ox 96.7 F L 87 20 90/59 95 05/11/16 10:53 05/11/16 10:53 05/11/16 10:53 05/11/16 10:53 05/11/16 10:53 Vital Signs - Last 8 Hours Temp Pulse Resp BP Pulse Ox 05/12/16 07:12 97.7 F 81 18 98/53 96 05/12/16 04:52 97.7 F 84 14 106/51 95 Intake and Output 05/11/16 05/12/16 05/12/16 23:59 07:59 15:59 Intake Total 270 / 270 1000 / 1000 360 / 360 Output Total 400 / 400 275 / 275 Balance 270 / 270 600 / 600 85 / 85 Intake: IV Fluids 100 / 100 1000 / 1000 0.9 % Sodium Chloride 1, 1000 / 1000 000 ML @ 75 mls/hr IVC . [id number] [facility] Rx#: [id number] Rocephin 1,000 MG In 100 / 100 Dextrose 5% (Minibag+) 100 ML 100 ML @ 200 mls/ hr IVPB Q12HR [facility] Rx#: [id number] Oral 170 / 170 360 / 360 Output: Catheter 400 / 400 275 / 275 Other: Meal Dinner Breakfast Percent of Meal Consumed 10% 0% Stool Size Small Small Stool Consistency soft loose Stool Characteristics Normal for Patient [place] Stool Color Brown Brown # Bowel Movements 1 - General Appearance General appearance: well-developed, well-nourished, appears started age EENT: ATNC Neck: supple Respiratory: clear (anteriorly) Cardiology: edema (trace edema), regular rate, regular rhythm Gastrointestinal: normoactive bowel sounds, no tenderness Integumentary: warm and dry Neurologic: confused Additional Comments: Alert, but quickly becomes disengaged from the conversation and falls back asleep. Occasionally seems slightly confused when he awakens. Musculoskeletal: no cyanosis Psychiatric: mood/affect appropriate, cooperative Results - Lab Results 05/12/16 05:41 05/12/16 05:41 Most recent lab results Calcium 8.7 mg/dL (8.6-10.8) 05/12/16 05:41 Phosphorus 5.3 mg/dL (2.3-4.7) H 05/12/16 05:41 Magnesium 2.4 mg/dL (1.6-2.6) 05/12/16 05:41 - Image Kidney/bladder ultrasound: report reviewed Consult Discharge Plan - Plan Referrals: Marisa Dobbs, DRYING SUPERVISOR [Primary Care Provider] -
[2016-05-12] MEDS ORDERED: Calcium Gluconate 2,000 MG in D5% in Water 100 ML IVPB ONE (12:05)
--- NOTE | 2016-05-12 14:19 | ECHO - Doppler Report ---
Echocardiogram Name: Justo Leon Date of Study: 05/12/2016 Date: 1935 Ht: 74.0 in Medical Record#: [id number] Age: 80 Wt: 200.0 lb Gender: Male BSA: 2.17 Order #: [id number] Location: [facility] Room #: [id number] Reading Physician: Abraham Kim MD, [facility] Walking Dragline Operator: Kami Gupta Ordering Physician: Doc Lucas DO Primary Physician: Marisa Dobbs CNP Indications: Congestive heart failure, Pre-Operative Impressions: LVEF 50-55%. Severe pulmonary hypertension. Technically sub-optimal due to clinical status. Moderately dilated right ventricle Moderate-severely dilated right atrium. No significant valvular dysfunction. Left Ventricular Wall Motion: Rest Echo Findings All visualized wall segments showed normal motion. Findings: Left Ventricle * LVEF 50-55%. * Indeterminate diastolic function. Aorta * Normally sized aortic root. Left Atrium * Mildly dilated left atrium. Tricuspid Valve * No tricuspid stenosis. * Mild tricuspid regurgitation. * Severe pulmonary hypertension. * Estimated RVSP is 63 mmHg. * Estimated RA pressure is 5-8 mmHg. Study Quality * Technically sub-optimal due to clinical status. Pulmonic Valve * No pulmonic regurgitation. * No pulmonic stenosis. Aortic Valve * Trileaflet aortic valve. * No aortic stenosis. * Trace aortic regurgitation. Right Ventricle * Moderately dilated right ventricle with normal function IVC * The IVC is dilated. * > 50% respiratory change Interatrial Septum * Interatrial septum not well evaluated. Right Atrium * Moderate-severely dilated right atrium. ECG Findings * Atrial fibrillation. History Hypertension 07/04/2014 a Previous Echo was performed. Measurements: BP: 98/ 53 2D Normal Values RVIDd: 3.32 cm <2.7 cm IVSd: .91 cm 0.6 - 1.0 cm LVIDd: 5.93 cm 3.7 - 5.6 cm LVPWd: .95 cm 0.6 - 1.1 cm LVIDs: 3.96 cm 1.5 - 3.6 cm AO: 3.20 cm < 4.0 cm LA: 4.10 cm 2.0 - 4.0cm %FS: 33.20 cm >25 % LVOT Diam: 2.40 cm LA volume: 92 Mitral Valve Peak E:.82 m/sec Peak A:.48 m/sec E/A Ratio:1.7 Peak E' Lat Sunny:12.7 cm/s Peak E' Med Sunny:8.08 cm/s E/E' Lat Ratio:6.4 E/E' Med Ratio:10.1 Aortic Valve AI pressure Half-time: 614.00 msec Tricuspid Valve TV Regurg Peak Grad: 55.00mmHg TV Regurg Peak Sunny: 3.70m/sec Updated by Judy Rosario MD, [facility] on 05/12/2016 2:10:49 PM electronically signed on 05/12/2016 2:15:46 PM with status of Final Wall Motion Lira: 1=Normal, 2=Hypokinesis, 3=Akinesis, 4=Dyskinesis, 5=Aneurysmal, 6=Hyperkinetic, X=Not Visualized (Blank)=Missing
[2016-05-12] MEDS ORDERED: *HR* Propofol 200 MG/20 ML VIAL IVP ONE (14:22)
[2016-05-12] MEDS ORDERED: Lidocaine -MPF 2% 2 ML VIAL ONE (14:22)
[2016-05-12] MEDS ORDERED: *HR* FentaNYL (PF) 100 MCG/2 ML VIAL ONE (14:22)
[2016-05-12] MEDS ORDERED: *HR* Succinylcholine 200 MG/10 ML VIAL IVP ONE (14:22)
[2016-05-12] MEDS ORDERED: Melatonin 3 MG TABLET PO PRN (15:10)
--- NOTE | 2016-05-12 15:47 | Anesthesia Evaluation PreOp ---
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) Other Medical History: Renal (CKD stage 3), Other (H/O prostate CA S/P brachytherapy) Anesthesia History: No Prior Anesthetic Complications, Past Anesthesia Alcohol Use: none Drug use: none Medications and Allergies Allopurinol [Zyloprim] 100 mg PO DAILY 05/11/16 [History] Calcitriol [Rocaltrol] 0.25 mcg PO DAILY 05/11/16 [History] Diltiazem HCl [Cartia Xt] 240 mg PO DAILY 05/11/16 [History] Diphenhydramine HCl [Nighttime Sleep Aid] 100 mg PO HS 05/11/16 [History] Famotidine [Acid Foam Caster] 10 mg PO DAILY 05/11/16 [History] Folic Acid 1,200 mcg PO DAILY 05/11/16 [History] Furosemide [Furosemide] 40 mg PO BID 05/11/16 [History] HYDROcodone/Acet 5/325 mg [[place] 5-325 mg] 1 tab PO QID PRN 05/11/16 [History] Megestrol Acetate [Megace] 400 mg PO BID 05/11/16 [History] Metoprolol Succinate [Toprol Xl] 100 mg PO BID 05/11/16 [History] Tamsulosin [Flomax] 0.4 mg PO DAILY 05/11/16 [History] TraZODone 50 mg PO HS 05/11/16 [History] Allergies No Known Allergies Allergy (Verified 05/06/16 12:16) - Meds/Allergy Pre-op Review Medications Reviewed: Yes Allergies Reviewed: Yes Beta Blockers on Current Med List: Yes If Beta Blockers taken, Date/Time (Last Dose taken): 05/11/2016 at 2035 Anesthesia Results - Labs 05/12/16 05:41 05/12/16 05:41 - Imaging EKG: report reviewed (05/06/2016 A-Fib, RBBB) Additional studies: 05/12/2016 Echo LVEF 50-55% indeterminate diastolic function severe pulmonary HTN moderately dilated RV moderate-severely dilated RA no significant valvular dysfunction 07/04/2014 Echo Impressions: Technically sub-optimal due to poor echocardiographic windows. LVEF 50-55%. Grossly normal left ventricular structure and function. Atypical septal motion consistent with bundle branch block. Indeterminate diastolic function. Mildly dilated right ventricle with normal function. Moderately dilated right atrium. Severe pulmonary hypertension. Estimated RVSP is 63 mmHg. Anesthesia Exam Vital Signs/O2 Sat, Most Current Temp Pulse Resp BP Pulse Ox 98.0 F 98 16 90/62 95 05/12/16 11:30 05/12/16 11:30 05/12/16 11:30 05/12/16 11:30 05/12/16 11:30 Height: 6'2''/1.88 m Weight: 200 lbs/90.718 kg NPO (# of Hours): 8 Pain Scale: 6 (right hip) Pain Scale Used: Numeric (1 - 10) - HEENT Pupil (Motor): EOMI Mallampati: II Teeth: Normal Oral Opening: Greater than 3 - GRADE [employer]EM[employer] LOC: Confused [employer]ADE [employer] Motor: Normal RUE, Normal LUE, Normal RLE, Normal LLE, Normal Face [employer]EM[employer] Sensory: Normal: RUE, LUE, RLE, LLE, Face - Cardiac Rhythm: Irregular Murmur: None - Pulmonary Breath Sounds: bilateral Clear Respiratory Effort: Symmetrical Anesthesia Assess/Plan ASA Score: 4 Modified [place] Scale for Level of Consciousness: Cooperative, oriented, and tranquil Anesthetic Plan: General Monitoring Plan: Standard Monitors Recovery Plan: PACU
[2016-05-12] MEDS ORDERED: *HR* Phenylephrine 10 MG/ML VIAL ONE (16:34)
[2016-05-12] MEDS ORDERED: *HR* Vasopressin 20 UNIT/ML VIAL ONE (16:47)
[2016-05-12] MEDS ORDERED: *HR* HYDROmorphone (PF) 1 MG/ML SYRINGE IVP PRN ×2 (17:13→20:26)
[2016-05-12] MEDS ORDERED: Dexamethasone 4 MG/ML VIAL ONE (18:31)
[2016-05-12] MEDS ORDERED: Ondansetron 4 MG/2 ML VIAL ONE (18:31)
--- NOTE | 2016-05-12 19:26 | Operative Note ---
Date of procedure: 05/12/16 Pre-op diagnosis: Right hip femoral neck fracture, displaced Post-op diagnosis: same Procedure: Right hip arthroplasty Implants: Ames Omnifit cemented stem, Accolade unihead Anesthesia: JOSEA Surgeon: Ramesh Stroud Estimated blood loss (cc): 100 Specimen: To pathology Condition: stable Disposition: PACU Procedure in Detail: The patient received IV antibiotics in the holding area. He was brought to the operating room, sign in was performed. The patient underwent general anesthesia on the hospital bed. He was then transferred to the OR table in supine position. The patient was positioned in the left lateral decubitus position, supported by pelvic supports. Bony prominences of the left lower extremity were well padded. An axillary roll was placed. The right lower extremity was then prepped and draped in usual sterile fashion. A timeout was performed. The level of the greater trochanter was palpated, a 10-12 cm curvilinear posterior incision was made, followed by Bovie dissection. The hip abductor was sharply split in line with its fibers with a curved Gonzalez scissors, incising the fascia over the gluteus serenity also. The Charnley retractors were then positioned, making sure all not to go too deeply, to protect the sciatic nerve. The bursa over the greater trochanter was excised with Bovie electrocautery. The right hip was then internally rotated, putting the short external rotators on stretch. These were taken down from the insertion point with the Bovie cautery, starting from less of a trochanter and going approximately to the femoral neck. The capsule along the posterior femoral neck and head was then T' ed, giving exposure to the fractured femoral head/neck. The head was then removed with a power corkscrew, and cutting the ligamentum teres. The head was measured and a size 52 mm diameter was chosen. The acetabulum was washed out of any bone fragments, and a trial head was placed giving a good fit. Next, the exposed fractured femoral neck was cleaned up with a rongeur, a supervisor transferring and boxing was then used to remove the lateral bone. The canal finder was then inserted. The patient appeared very osteopenic and x-rays, visually as close he is very thin. It was set to do a cemented system. We then started broaching with broaches from the Cleo tray. Starting with a Cement 4, and moving up to a Cement 5, keeping the appropriate anteversion. Ended with a Cement 8. The trial stem was well fixed with no toggling. We then trialed a 52 mm head, with 132 degree neck angle, and -3 neck length. The patient felt somewhat short, went to a neutral neck length. With very good stability. The broach was then removed. The canal was irrigated out and suctioned. The Ames cement Omnifit stem was then opened, using a 82 degree neck angle and a size 8 cement stem. A cement restrictor was placed 2-3 some areas distal to the tip of the implant. 2 bags of low-viscosity Simplex bone cement were mixed on the back table. The nozzle was jammed and could not be removed. The cement was placed from the implant and packed into the canal. The implant was tapped in place, making sure to keep the correct anteversion. The bone cement side holding rapidly this point. As much of infectious cement was removed as possible. We then with cement fully hardened, and the remaining cement was removed with an osteotome and rongeur. Once well positioned, we trialed with a 52 mm diameter trial head, and in neutral stem. Stability was checked along with leg length, it was felt that the leg length was slightly short. I then trialed with a +5 mm neck length. The leg lengths felt equal, the patient had good extension of the left lower extremity, is able to flex the hip, adduct, and internally rotated up to75 degrees before the hip started subluxing out. The trial components removed. The acetabulum was copiously irrigated with normal saline once again making sure it was well cleaned out. Next the 52 mm unipolar head was opened with a + 5 neck length. This assembled and tapped in place. The hip was reduced, and stability was checked once again. We had good stability. The capsule was then closed with 2-0 FiberWire figure of 8 sutures. The leg was placed on Gonzalez stand, and the short external rotators were reattached to the bone using the FiberWire. The tensor fascia along with the gluteus fascia was closed with FiberWire [id number] sutures. Once again irrigating the wound with pulse lavage. The deep fat layer was closed with # 1 Vicryl and 0 Vicryl, subcutaneous tissues with 2-0 Vicryl simple sutures, and finally the skin was closed with sam. Sterile dressings were applied. A hip abduction wedge was in place between the patient's legs. He was then rolled over into supine position and transferred back onto the hospital bed where he was extubated and taken to the recovery room in stable condition.
[2016-05-12] MEDS ORDERED: Ondansetron 4 MG/2 ML VIAL IVP PRN ×2 (20:26)
[2016-05-12] MEDS ORDERED: *HR* Morphine 2 MG/ML SYRINGE IVP PRN (20:26)
[2016-05-12] MEDS ORDERED: Sennosides 8.6 MG TABLET PO PRN (20:26)
[2016-05-12] MEDS ORDERED: Naloxone 0.4 MG/ML INJ IVP PRN ×2 (20:26)
[2016-05-12] MEDS ORDERED: Temazepam 15 MG CAPSULE PO PRN (20:26)
[2016-05-12] MEDS ORDERED: Ringers Solution, Lactated 1,000 ML IVC SCH (20:26)
[2016-05-12] MEDS ORDERED: MOM Conc 10 ML UD.LIQ PO PRN (20:26)
[2016-05-12] MEDS: traZODone 50 MG TABLET PO SCH (22:54)
[2016-05-12] MEDS ORDERED: Metoprolol XL (24 HR) Succ 25 MG TAB.ER.24H PO ONE (23:03)
[2016-05-13 05:59] LABS: Calcium 8.7 mg/dL (8.6-10.8); Potassium 5.2 mEq/L (3.5-4.5)
[2016-05-13 06:10] LABS: Hematocrit 34.4 % (37.5-50.1); Mean Corpuscular Hemoglobin 32.5 pg (28.0-33.3); Mean Corpuscular Volume 101.8 fL (83.0-100.0); Mean Platelet Volume 9.7 fL (9.4-12.4); Platelet Count 172 K/mcL (140-400); Red Blood Count 3.38 M/mcL (4.19-5.50); Red Cell Distribution Width 14.3 % (11.5-14.5)
[2016-05-13 06:23] LABS: Albumin 2.3 g/dL (3.5-5.0); Calcium 8.6 mg/dL (8.6-10.8); Magnesium 2.3 mg/dL (1.6-2.6); Phosphorous 5.9 mg/dL (2.3-4.7); Potassium 4.9 mEq/L (3.5-4.5)
[2016-05-13 06:24] LABS: % Iron Saturation 8 % (20-55); Iron 19 mcg/dL (65-175); Transferrin 172 mg/dL (174-364)
[2016-05-13 06:26] LABS: Folate 17.2 ng/mL (7.0-31.4)
[2016-05-13 06:32] LABS: Basophilic Stippling 1+ (Not Present); Large Platelets Present (Not Present); Lymphocytes # 0.4 K/mcL (0.6-4.6); Monocytes # 0.4 K/mcL (0.0-1.3); Neutrophils # 9.4 K/mcL (1.6-8.9); Platelet Estimate Normal (Normal); Polychromasia 1+ (Not Present); Reactive Lymphocytes Present (Not Present)
[2016-05-13 06:44] LABS: Ferritin 233 ng/ml (22-275)
[2016-05-13] MEDS: Pantoprazole 40 MG VIAL IVP SCH (09:38)
[2016-05-13] MEDS: Multivit/Ca/Min/Fe/FA 1 TAB TABLET PO SCH (09:39)
[2016-05-13] MEDS: Folic Acid 1 MG TABLET PO SCH (09:39)
[2016-05-13] MEDS: Famotidine 20 MG TABLET PO SCH (09:39)
[2016-05-13] MEDS: Diltiazem CD (24hr) 240 MG CAPSULE PO SCH (09:39)
[2016-05-13] MEDS: Ascorbic Acid 500 MG TABLET PO SCH ×2 (09:40→17:08)
[2016-05-13] MEDS: Metoprolol XL (24 HR) Succ 50 MG TAB.ER.24H PO SCH ×3 (09:40→21:19)
--- NOTE | 2016-05-13 10:35 | Internal Med Progress Note ---
Date of Encounter: 05/13/16 Time of Encounter: 10:25 - Assessment and plan (1) Community acquired pneumonia Current Visit: Yes Status: Acute Assessment and plan: On IV Ceftriaxone. Add atypical coverage. CXR shows persistent infiltrate. Seems to be clinically improving on exam. (2) Acute renal failure due to tubular necrosis Current Visit: Yes Status: Suspected Assessment and plan: Creatinine about the same. The blood pressure is still low. Will give increased fluids now and reassess. (3) Hyperkalemia Current Visit: Yes Status: Acute Assessment and plan: Slightly better today. Following. (4) Atrial fibrillation Current Visit: Yes Status: Acute Assessment and plan: Rate controlled. EF normal. Monitoring and continue some rate control meds at lower dose today. Qualifiers: Atrial fibrillation type: chronic Qualified Code(s): I48.2 - Chronic atrial fibrillation (5) Fracture of femoral neck Current Visit: Yes Status: Acute Assessment and plan: Underwent surgery yesterday and tolerated OK. PT eval. Qualifiers: Encounter type: subsequent encounter Fracture type: closed Laterality: right Qualified Code(s): S72.001D - Fracture of unspecified part of neck of right femur, subsequent encounter for closed fracture with routine healing (6) Insomnia due to medical condition Current Visit: Yes Status: Acute Assessment and plan: PRN medication ordered. Improved. (7) Multiple falls Current Visit: Yes Status: Acute Assessment and plan: Will have PT/OT evals. (8) CKD (chronic kidney disease) Current Visit: Yes Status: Chronic Qualifiers: Chronic kidney disease stage: stage 3 (moderate) Qualified Code(s): N18.3 - Chronic kidney disease, stage 3 (moderate) (9) DVT prophylaxis Current Visit: Yes Status: Acute Assessment and plan: Subqu heparin - Subjective Interval history: Mr. Leon is currently admitted for acute R femoral neck fracture complicated by acute renal failure. He is high risk due to continued renal failure with hyperkalemia as well as apparent early fluid overload, presumed CAP and acute fracture. Mr. Leon had fracture repair last night. He feels that is doing OK right now. Pain is fairly controlled. He slept OK last night. He feels his breathing is better today. - Constitutional Vitals: Temp Pulse Resp BP Pulse Ox 98.7 F 107 16 103/68 99 05/13/16 06:43 05/13/16 06:43 05/13/16 06:43 05/13/16 06:43 05/13/16 10:02 General appearance: Present: mild distress, A&O X 3, pleasant, answers questions appropriately - Head Head exam: Present: normocephalic - Eye Eye exam: Present: EOMI, conjuntiva pink - ENT ENT exam: Present: mucous membranes dry - Respiratory Respiratory exam: Present: decreased breath sounds, CTAB. Absent: rhonchi, wheezes - Cardiovascular Cardiovascular exam: Present: irregular rhythm. Absent: systolic murmur, tachycardia - GI/Abdominal GI/Abdominal exam: Present: soft. Absent: tenderness - Extremities Exam Extremities exam: Present: pedal edema, warm - Neurological Exam Neurological exam: Present: alert, oriented X3, no focal deficits - Skin Skin exam: Present: warm. Absent: rash Internal Medicine: Result - Labs CBC & Chem 7: 05/13/16 05:54 05/13/16 05:54 Labs: Short CBC 05/13/16 Range/Units 05:54 WBC 10.2 (4.3-11.1) K/mcL Hgb 11.0 L (12.9-16.9) g/dL Hct 34.4 L (37.5-50.1) % Plt Count 172 (140-400) K/mcL Neutrophils # 9.4 H (1.6-8.9) K/mcL BMP 05/13/16 05/13/16 04:56 05:54 Sodium 140 140 Potassium 5.2 H 4.9 H Chloride 108 107 Carbon Dioxide 20 24 BUN 85 H 86 H Creatinine 3.62 H 3.70 H Glucose 145 H 151 H Calcium 8.7 8.6 Liver Function 05/13/16 Range/Units 05:54 Albumin 2.3 L (3.5-5.0) g/dL - ABG Interpretation ABG results: PT/INR, D-dimer PT 12.4 Seconds (9.4-12.1) H 05/12/16 05:41 - Impressions Impressions Hip X-Ray 05/12/16 00:00 IMPRESSION: 1. Expected new changes of right hip hemiarthroplasty. 2. Bony demineralization. D/ / Pj Del Toro MD / Pj Del Toro MD Interpreting Provider: Pj Del Toro MD Chest X-Ray 05/12/16 09:04 IMPRESSION: 1. Right lower lobe airspace opacity. If patient has clinical symptoms of infection, this may represent pneumonia. 2. Stable mild enlargement of the cardiac silhouette. 3. Small right pleural effusion. D/ / Joe Kirby MD / Joe Kirby MD Interpreting Provider: Joe Kirby MD Chest X-Ray 05/13/16 04:39 IMPRESSION: Persistent pleural and parenchymal changes at the right lung base which may represent atelectasis or pneumonia. Mild pulmonary vascular congestion. Given differences in technique, no great change from the most recent comparison study. D/ : / 05/13/2016 07:54:57 Robert Montenegro MD / herve Interpreting Provider: Robert Montenegro MD Consult Discharge Plan - Plan Referrals: Marisa Dobbs CNP [Primary Care Provider] -
--- NOTE | 2016-05-13 12:39 | Nephrology Progress Note ---
Date of Encounter: 05/13/16 Time of Encounter: 12:37 - Assessment and Plan (1) Acute on chronic renal failure Current Visit: Yes Status: Acute Patient with nonoliguric CHAVO/CKD. Urine output is increasing and the creatinine is decreasing. Hopeful for recovery back to baseline renal function. Continue with MIV. Avoid nephrotoxins. (2) Atrial fibrillation Current Visit: Yes Status: Acute Per cardiology patient is not a candidate for anticoagulation. Rate controlled. Management per cardiology. Qualifiers: Atrial fibrillation type: chronic Qualified Code(s): I48.2 - Chronic atrial fibrillation (3) Closed right femoral fracture Current Visit: Yes Status: Acute S/P surgery. Orthopedic surgery managing. Qualifiers: Encounter type: initial encounter Femur location: neck Qualified Code(s) : S72.001A - Fracture of unspecified part of neck of right femur, initial encounter for closed fracture (4) Community acquired pneumonia Current Visit: Yes Status: Acute Continue antibiotics. (5) Hyperkalemia Current Visit: Yes Status: Acute Medical management. (6) Hypotension Current Visit: Yes Status: Acute Continue fluids. Hold antihypertensives. Qualifiers: Qualified Code(s): I95.9 - Hypotension, unspecified (7) Anemia Current Visit: Yes Status: Acute Monitor hemoglobin and transfuse as needed. Needs vitamin b12 supplementation. Qualifiers: Qualified Code(s): D64.9 - Anemia, unspecified (8) Hyperparathyroidism Current Visit: Yes Status: Acute Control phosphorus. Replace calcium. Replace vitamin D. Subjective Principal diagnosis: CHAVO/CKD Interval history: Patient underwent surgery for hip fracture without complication. Today is is asleep and was not awakened. No new problems per nursing. Objective - Vital Signs Vital signs: Vital Signs Temp Pulse Resp BP Pulse Ox 05/13/16 10:56 98.9 F 104 16 107/65 95 05/13/16 10:02 99 05/13/16 06:43 98.7 F 107 16 103/68 99 05/13/16 06:00 98.4 F 104 18 97/68 99 05/13/16 05:08 97.4 F L 110 14 93/65 98 05/13/16 01:13 99.0 F 107 22 92/65 98 05/12/16 23:52 99.3 F 103 22 85/63 99 05/12/16 22:37 98.4 F 109 18 85/62 96 12/18/16 21:25 99.0 F 100 24 88/61 95 05/12/16 21:18 4 L 05/12/16 21:00 99.2 F 105 28 157/85 4 L 05/12/16 20:30 98.4 F 94 26 151/66 95 05/12/16 20:03 116 20 93 L 05/12/16 19:53 98.0 F 102 20 98/77 95 05/12/16 19:43 114 20 100/65 98 05/12/16 19:33 106 20 103/84 97 05/12/16 19:23 97.8 F 100 20 93/71 97 Intake and Output 05/12/16 05/13/16 05/13/16 23:59 07:59 15:59 Intake Total 415 / 415 100 / 100 Output Total 400 / 400 400 / 400 Balance -300 / -300 Intake: Oral 415 / 415 100 / 100 Output: Estimated Blood Loss 150 / 150 Catheter 250 / 250 400 / 400 Other: Meal Dinner Percent of Meal Consumed 30% - General Appearance General appearance: Present: well-developed, well-nourished EENT: Present: ATNC Respiratory: Present: clear (anteriorly) Cardiology: Present: no edema, regular rate Gastrointestinal: Present: normoactive bowel sounds Integumentary: Present: warm and dry Additional Comments: asleep with spontaneous respirations noted. Musculoskeletal: Present: no cyanosis - Lab 05/13/16 05:54 05/13/16 05:54 Most recent lab results Calcium 8.6 mg/dL (8.6-10.8) 05/13/16 05:54 Phosphorus 5.9 mg/dL (2.3-4.7) H 05/13/16 05:54 Magnesium 2.3 mg/dL (1.6-2.6) 05/13/16 05:54 Consult Discharge Plan - Plan Referrals: Marisa Dobbs, MANAGER [employer]ICING [Primary Care Provider] -
[2016-05-13] MEDS: Azithromycin 500 MG in D5% in Water 250 ML IVPB SCH (12:48)
[2016-05-13] MEDS: 0.9 % Sodium Chloride 1,000 ML IVC SCH (12:49)
[2016-05-13] MEDS ORDERED: Calcium Gluconate 1,000 MG in D5% in Water 100 ML IVPB ONE (13:00)
[2016-05-13] MEDS: Cyanocobalamin (B-12) 1,000 MCG/ML VIAL IM SCH (17:08)
[2016-05-13] MEDS: Calcium Acetate 667 MG CAPSULE PO SCH (17:08)
[2016-05-13] MEDS: *HR* OxyCODONE Immed Rel 5 MG TABLET PO PRN (17:09)
--- NOTE | 2016-05-13 18:06 | Orthopedics Progress Note ---
Date of Encounter: 05/13/16 Time of Encounter: 13:20 - Assessment and Plan (1) Closed right femoral fracture Current Visit: Yes Status: Acute POD#1 Dressings to be changed tomorrow. Begin therapy, WBAT. Continue pain control per hospitalist. Will f/up with Julieth Carias PA-C in [facility] on 05/27. Qualifiers: Encounter type: initial encounter Femur location: neck Qualified Code(s) : S72.001A - Fracture of unspecified part of neck of right femur, initial encounter for closed fracture Subjective Principal diagnosis: POD#1 S/P right hip hemiarthroplasty Interval history: Patient doing well today with no concerns or events overnight. Pain tolerable. Denies calf pain. Has not done any therapy at time of exam. Denies any numbness or tingling to lower extremities. Objective Vital signs: Vital Signs Temp Pulse Resp BP Pulse Ox 05/13/16 16:07 98.7 F 108 16 104/58 95 05/13/16 10:56 98.9 F 104 16 107/65 95 05/13/16 10:02 99 05/13/16 06:43 98.7 F 107 16 103/68 99 05/13/16 06:00 98.4 F 104 18 97/68 99 05/13/16 05:08 97.4 F L 110 14 93/65 98 05/13/16 01:13 99.0 F 107 22 92/65 98 05/12/16 23:52 99.3 F 103 22 85/63 99 05/12/16 22:37 98.4 F 109 18 85/62 96 05/12/16 21:25 99.0 F 100 24 88/61 95 05/12/16 21:18 4 L 05/12/16 21:00 99.2 F 105 28 157/85 4 L 05/12/16 20:30 98.4 F 94 26 151/66 95 05/12/16 20:03 116 20 93 L 05/12/16 19:53 98.0 F 102 20 98/77 95 05/12/16 19:43 114 20 100/65 98 05/12/16 19:33 106 20 103/84 97 05/12/16 19:23 97.8 F 100 20 93/71 97 Intake and Output 05/13/16 05/13/16 05/13/16 07:59 15:59 23:59 Intake Total 200 / 200 560 / 560 Output Total 400 / 400 150 / 150 Balance -200 / -200 410 / 410 Intake: IV Fluids 100 / 100 Rocephin 1,000 MG In 100 / 100 Dextrose 5% (Minibag+) 100 ML 100 ML @ 200 mls/ hr IVPB Q12HR [facility] Rx#: [id number] Oral 100 / 100 560 / 560 Output: Catheter 400 / 400 150 / 150 Other: Percent of Meal Consumed 15% Stool Size Moderate Stool Consistency formed Stool Color Brown Incision: clean and dry (dressings c/d/i) - Labs CBC & BMP: 05/13/16 05:54 05/13/16 05:54 Labs: Abnormal lab results RBC 3.38 M/mcL (4.19-5.50) L 05/13/16 05:54 Hgb 11.0 g/dL (12.9-16.9) L 05/13/16 05:54 Hct 34.4 % (37.5-50.1) L 05/13/16 05:54 MCV 101.8 fL (83.0-100.0) H 05/13/16 05:54 Band Neutrophils % 12.0 % (0-4) H 05/13/16 05:54 Neutrophils # 9.4 K/mcL (1.6-8.9) H 05/13/16 05:54 Lymphocytes # 0.4 K/mcL (0.6-4.6) L 05/13/16 05:54 Reactive Lymphocytes Present (Not Present) A 05/13/16 05:54 Large Platelets Present (Not Present) A 05/13/16 05:54 Polychromasia 1+ (Not Present) A 05/13/16 05:54 Basophilic Stippling 1+ (Not Present) A 05/13/16 05:54 Microcytosis Present (Not Present) A 05/12/16 05:41 PT 12.4 Seconds (9.4-12.1) H 05/12/16 05:41 Potassium 4.9 mEq/L (3.5-4.5) H 05/13/16 05:54 BUN 86 mg/dL (8-26) H 05/13/16 05:54 Creatinine 3.70 mg/dL (0.72-1.25) H 05/13/16 05:54 Est GFR ( Amer) 19 (> 60) L 05/13/16 05:54 Est GFR (Non-Af Amer) 16 (> 60) L 05/13/16 05:54 Glucose 151 mg/dL (70-99) H 05/13/16 05:54 Calculated Osmolality 319 (280-300) H 05/13/16 05:54 Uric Acid 7.5 mg/dL (3.5-7.2) H 05/11/16 14:59 Ionized Calcium 1.09 mmol/L (1.15-1.35) L 05/12/16 05:41 Phosphorus 5.9 mg/dL (2.3-4.7) H 05/13/16 05:54 Iron 19 mcg/dL (65-175) L 05/13/16 05:54 % Saturation 8 % (20-55) L 05/13/16 05:54 Transferrin 172 mg/dL (174-364) L 05/13/16 05:54 Alkaline Phosphatase 130 Units/L (38-126) H 05/12/16 05:41 B-Natriuretic Peptide 313 pg/mL (0-100) H 05/11/16 11:32 Albumin 2.3 g/dL (3.5-5.0) L 05/13/16 05:54 Albumin/Globulin Ratio 0.8 (1.1-2.2) L 05/12/16 05:41 Prealbumin 11.0 mg/dL (18.0-45.0) L 05/13/16 04:56 Vitamin B12 154 pg/mL (213-816) L 05/13/16 04:56 25-OH Vitamin D Total 28 ng/mL (30-80) L 05/13/16 04:56 PTH Intact 464.2 pg/ml (8.5-72.5) H 05/13/16 05:54 Urine Bilirubin Moderate (Negative) H 05/11/16 13:20 Ur Leukocyte Esterase Trace (Negative) H 05/11/16 13:20 Urine Microscopic RBC 3-5 per hpf (0-3) H 05/11/16 13:20 Ur Squamous Epith Cells Many per lpf (None-Few) H 05/11/16 13:20 Ur Culture Indicated? YES (NO) A 05/11/16 13:20 Consult Discharge Plan - Plan Referrals: Marisa Dobbs, [employer] WORKER [Primary Care Provider] -
[2016-05-13] MEDS ORDERED: *HR* Enoxaparin 30 MG/0.3 ML SYRINGE SQ SCH (19:14)
[2016-05-13] MEDS: Megestrol Acetate 400 MG/10 ML UDC PO SCH (21:17)
[2016-05-13] MEDS: traZODone 50 MG TABLET PO SCH (21:17)
[2016-05-13] MEDS: *HR* Enoxaparin 30 MG/0.3 ML SYRINGE SQ SCH (21:17)
[2016-05-14] MEDS: 0.9 % Sodium Chloride 1,000 ML IVC SCH ×2 (01:54→21:33)
[2016-05-14 06:04] LABS: Hematocrit 35.3 % (37.5-50.1); Hemoglobin 10.8 g/dL (12.9-16.9); Mean Corpuscular HGB Conc 30.6 g/dL (31.6-35.5); Mean Corpuscular Hemoglobin 31.6 pg (28.0-33.3); Mean Corpuscular Volume 103.2 fL (83.0-100.0); Platelet Count 169 K/mcL (140-400); Red Blood Count 3.42 M/mcL (4.19-5.50); Red Cell Distribution Width 14.4 % (11.5-14.5)
[2016-05-14 06:23] LABS: Calcium 8.9 mg/dL (8.6-10.8); Potassium 4.8 mEq/L (3.5-4.5)
[2016-05-14] MEDS: Folic Acid 1 MG TABLET PO SCH (08:42)
[2016-05-14] MEDS: Metoprolol XL (24 HR) Succ 50 MG TAB.ER.24H PO SCH ×3 (08:42→23:43)
[2016-05-14] MEDS: Ascorbic Acid 500 MG TABLET PO SCH ×2 (08:42→16:56)
[2016-05-14] MEDS: Famotidine 20 MG TABLET PO SCH (08:43)
[2016-05-14] MEDS: Pantoprazole 40 MG VIAL IVP SCH (08:43)
[2016-05-14] MEDS: Megestrol Acetate 400 MG/10 ML UDC PO SCH ×2 (08:43→21:06)
[2016-05-14] MEDS: Multivit/Ca/Min/Fe/FA 1 TAB TABLET PO SCH (08:43)
[2016-05-14] MEDS: Diltiazem CD (24hr) 240 MG CAPSULE PO SCH (08:43)
[2016-05-14] MEDS: *HR* Enoxaparin 30 MG/0.3 ML SYRINGE SQ SCH ×2 (08:43→16:56)
[2016-05-14] MEDS: Calcium Acetate 667 MG CAPSULE PO SCH ×3 (08:43→16:56)
[2016-05-14] MEDS: Cyanocobalamin (B-12) 1,000 MCG/ML VIAL IM SCH (08:44)
[2016-05-14] MEDS: *HR* OxyCODONE Immed Rel 5 MG TABLET PO PRN ×2 (08:51→15:15)
[2016-05-14 09:13] LABS: Total Volume 24 Hour,Urine 1.37 Liters (0.80-1.80)
[2016-05-14 10:13] LABS: Creatinine 24 Hour,Urine 1.44 g/day (0.71-1.65); Protein/Creatinine Ratio,Urine 0.26 mg/mg (0-0.20)
--- NOTE | 2016-05-14 10:54 | Electrocardiograph Report ---
[facility] Test Date: 2016-05-11 Pat Name: Justo Leon Department: 102 Room: [facility] Gender: M Layup Worker: Mari : 1935 Requested By: Sohan Melgar Order Number: [id number] Reading MD: Giles Rasheed DO Measurements Intervals [place] Rate: 61 P: [place]: 0 QRS: 84 QRSD: 155 T: -22 QT: 416 QTc: 420 Interpretive Statements Atrial fibrillation Right bundle branch block Electronically Signed On 05-14-16 10:53:17 EST by Giles Rasheed DO
[2016-05-14] MEDS: Azithromycin 500 MG in D5% in Water 250 ML IVPB SCH (11:39)
--- NOTE | 2016-05-14 12:31 | Orthopedics Progress Note ---
Date of Encounter: 05/14/16 Time of Encounter: 11:10 - Assessment and Plan (1) Closed right femoral fracture Current Visit: Yes Status: Acute POD#2 Dressings to be changed today. Continue therapy, WBAT. Continue pain control per hospitalist. Will f/up with Julieth Carias PA-C in [facility] on 05/27. Qualifiers: Encounter type: initial encounter Femur location: neck Qualified Code(s) : S72.001A - Fracture of unspecified part of neck of right femur, initial encounter for closed fracture Subjective Principal diagnosis: POD#2 S/P right hip hemiarthroplasty Interval history: Patient doing well today with no concerns or events overnight. Pain tolerable. Denies calf pain. Denies any numbness or tingling to lower extremities. Patient was sleepy on exam and most information came from . stated that patient was up in chair when she arrived this morning but unclear if therapy actually worked with patient or not. Objective Vital signs: Vital Signs Temp Pulse Resp BP Pulse Ox 05/14/16 11:42 98.5 F 107 16 116/74 97 05/14/16 07:39 98.4 F 119 16 113/70 97 05/14/16 04:00 97.6 F 104 15 91/77 99 05/14/16 00:00 97.5 F L 106 15 90/64 99 05/13/16 20:00 97.7 F 103 17 99/68 99 05/13/16 16:07 98.7 F 108 16 104/58 95 Intake and Output 05/13/16 05/14/16 05/14/16 23:59 07:59 15:59 Intake Total 1000 / 1000 100 / 100 1000 / 1000 Output Total 400 / 400 450 / 450 Balance 600 / 600 -350 / -350 1000 / 1000 Intake: IV Fluids 1000 / 1000 100 / 100 1000 / 1000 0.9 % Sodium Chloride 1, 1000 / 1000 1000 / 1000 000 ML @ 150 mls/hr IVC . Q6H40M LUDIN Rx#:[id number] Rocephin 1,000 MG In 100 / 100 Dextrose 5% (Minibag+) 100 ML 100 ML @ 200 mls/ hr IVPB Q12HR LUDIN Rx#: [id number] Output: Catheter 400 / 400 450 / 450 Other: Stool Size Smear Smear Stool Consistency soft Stool Color Brown Brown # Bowel Movement Diapers 1 Incision: clean and dry (dressings c/di, no calf pain, good dorsiflexion of foot , NV intact) - Labs CBC & BMP: 05/14/16 04:56 05/14/16 04:56 Labs: Abnormal lab results RBC 3.42 M/mcL (4.19-5.50) L 05/14/16 04:56 Hgb 10.8 g/dL (12.9-16.9) L 05/14/16 04:56 Hct 35.3 % (37.5-50.1) L 05/14/16 04:56 MCV 103.2 fL (83.0-100.0) H 05/14/16 04:56 MCHC 30.6 g/dL (31.6-35.5) L 05/14/16 04:56 Band Neutrophils % 12.0 % (0-4) H 05/13/16 05:54 Neutrophils # 9.4 K/mcL (1.6-8.9) H 05/13/16 05:54 Lymphocytes # 0.4 K/mcL (0.6-4.6) L 05/13/16 05:54 Reactive Lymphocytes Present (Not Present) A 05/13/16 05:54 Large Platelets Present (Not Present) A 05/13/16 05:54 Polychromasia 1+ (Not Present) A 05/13/16 05:54 Basophilic Stippling 1+ (Not Present) A 05/13/16 05:54 Microcytosis Present (Not Present) A 05/12/16 05:41 PT 12.4 Seconds (9.4-12.1) H 05/12/16 05:41 Potassium 4.8 mEq/L (3.5-4.5) H 05/14/16 04:56 Chloride 110 mEq/L (98-109) H 05/14/16 04:56 BUN 87 mg/dL (8-26) H 05/14/16 04:56 Creatinine 2.98 mg/dL (0.72-1.25) H 05/14/16 04:56 Est GFR ( Amer) 25 (> 60) L 05/14/16 04:56 Est GFR (Non-Af Amer) 20 (> 60) L 05/14/16 04:56 BUN/Creatinine Ratio 29 (6-26) H 05/14/16 04:56 Glucose 126 mg/dL (70-99) H 05/14/16 04:56 POC Glucose 122 (58-89) H 05/14/16 07:37 Calculated Osmolality 320 (280-300) H 05/14/16 04:56 Uric Acid 7.5 mg/dL (3.5-7.2) H 05/11/16 14:59 Ionized Calcium 1.09 mmol/L (1.15-1.35) L 05/12/16 05:41 Phosphorus 5.9 mg/dL (2.3-4.7) H 05/13/16 05:54 Iron 19 mcg/dL (65-175) L 05/13/16 05:54 % Saturation 8 % (20-55) L 05/13/16 05:54 Transferrin 172 mg/dL (174-364) L 05/13/16 05:54 Alkaline Phosphatase 130 Units/L (38-126) H 05/12/16 05:41 B-Natriuretic Peptide 313 pg/mL (0-100) H 05/11/16 11:32 Albumin 2.3 g/dL (3.5-5.0) L 05/13/16 05:54 Albumin/Globulin Ratio 0.8 (1.1-2.2) L 05/12/16 05:41 Prealbumin 11.0 mg/dL (18.0-45.0) L 05/13/16 04:56 Vitamin B12 154 pg/mL (213-816) L 05/13/16 04:56 25-OH Vitamin D Total 28 ng/mL (30-80) L 05/13/16 04:56 PTH Intact 464.2 pg/ml (8.5-72.5) H 05/13/16 05:54 Urine Bilirubin Moderate (Negative) H 05/11/16 13:20 Ur Leukocyte Esterase Trace (Negative) H 05/11/16 13:20 Urine Microscopic RBC 3-5 per hpf (0-3) H 05/11/16 13:20 Ur Squamous Epith Cells Many per lpf (None-Few) H 05/11/16 13:20 Ur Culture Indicated? YES (NO) A 05/11/16 13:20 Ur Total Protein 24 Hr 370 mg/day (0-299) H 05/14/16 04:18 Protein/Creatinin Ratio 0.26 mg/mg (0-0.20) H 05/14/16 04:18 Ur Urea Nitrogen 24 Hr 9.7 g/day (12.0-20.0) L 05/14/16 04:18 Urine Total Protein 27 mg/dL (1-14) H 05/14/16 04:18 - VTE Documentation of Mechanical Device: Intermittent pneumatic compression device Consult Discharge Plan - Plan Referrals: Julieth Carias, DM [Physician President [employer]] - 05/27/16 2:15 pm Marisa Dobbs, STOCK CHASER [Primary Care Provider] - Tanner Jaquez MD [Partnered Physician] - 05/29/16 1:30 pm
--- NOTE | 2016-05-14 12:47 | Nephrology Progress Note ---
Date of Encounter: 05/14/16 Time of Encounter: 12:40 - Assessment and Plan (1) Acute on chronic renal failure Current Visit: Yes Status: Acute Patient with nonoliguric CHAVO/CKD. Urine output is increasing and the creatinine is decreasing. Hopeful for recovery back to baseline renal function. Continue with MIV. Avoid nephrotoxins. (2) Atrial fibrillation Current Visit: Yes Status: Acute Per cardiology patient is not a candidate for anticoagulation. Rate controlled. Management per cardiology. Qualifiers: Atrial fibrillation type: chronic Qualified Code(s): I48.2 - Chronic atrial fibrillation (3) Closed right femoral fracture Current Visit: Yes Status: Acute S/P surgery. Orthopedic surgery managing. Qualifiers: Encounter type: initial encounter Femur location: neck Qualified Code(s) : S72.001A - Fracture of unspecified part of neck of right femur, initial encounter for closed fracture (4) Community acquired pneumonia Current Visit: Yes Status: Acute Continue antibiotics. (5) Hyperkalemia Current Visit: Yes Status: Acute Medical management. (6) Hypotension Current Visit: Yes Status: Acute Continue fluids. Hold antihypertensives. Qualifiers: Qualified Code(s): I95.9 - Hypotension, unspecified (7) Anemia Current Visit: Yes Status: Acute Monitor hemoglobin and transfuse as needed. Needs vitamin b12 supplementation. Qualifiers: Qualified Code(s): D64.9 - Anemia, unspecified (8) Hyperparathyroidism Current Visit: Yes Status: Acute Control phosphorus. Replace calcium. Replace vitamin D. Subjective Principal diagnosis: POD#2 S/P right hip hemiarthroplasty Interval history: Patient underwent surgery for hip fracture without complication. He has no new complaints. His is at his bedside. Objective - Vital Signs Vital signs: Vital Signs Temp Pulse Resp BP Pulse Ox 05/14/16 11:42 98.5 F 107 16 116/74 97 05/14/16 07:39 98.4 F 119 16 113/70 97 05/14/16 04:00 97.6 F 104 15 91/77 99 05/14/16 00:00 97.5 F L 106 15 90/64 99 05/13/16 20:00 97.7 F 103 17 99/68 99 05/13/16 16:07 98.7 F 108 16 104/58 95 Intake and Output 05/13/16 05/14/16 05/14/16 23:59 07:59 15:59 Intake Total 1000 / 1000 100 / 100 1000 / 1000 Output Total 400 / 400 450 / 450 Balance 600 / 600 -350 / -350 1000 / 1000 Intake: IV Fluids 1000 / 1000 100 / 100 1000 / 1000 0.9 % Sodium Chloride 1, 1000 / 1000 1000 / 1000 000 ML @ 150 mls/hr IVC . Q6H40M LUDIN Rx#:[id number] Rocephin 1,000 MG In 100 / 100 Dextrose 5% (Minibag+) 100 ML 100 ML @ 200 mls/ hr IVPB Q12HR LUDIN Rx#: [id number] Output: Catheter 400 / 400 450 / 450 Other: Stool Size Smear Smear Stool Consistency soft Stool Color Brown Brown # Bowel Movement Diapers 1 - General Appearance General appearance: Present: well-developed, well-nourished EENT: Present: ATNC Neck: Present: supple Respiratory: Present: clear Cardiology: Present: no edema Integumentary: Present: warm and dry Additional Comments: Alert, but slow to answer. Musculoskeletal: Present: no cyanosis Psychiatric: Present: mood/affect appropriate - Lab 05/14/16 04:56 05/14/16 04:56 Most recent lab results Calcium 8.9 mg/dL (8.6-10.8) 05/14/16 04:56 Phosphorus 5.9 mg/dL (2.3-4.7) H 05/13/16 05:54 Magnesium 2.3 mg/dL (1.6-2.6) 05/13/16 05:54 Urine Creatinine 105 mg/dL 05/14/16 04:18 Ur Total Protein 24 Hr 370 mg/day (0-299) H 05/14/16 04:18 Urine Sodium 32.0 mEq/L 05/14/16 04:18 Urine Total Protein 27 mg/dL (1-14) H 05/14/16 04:18 - VTE Documentation of Mechanical Device: Intermittent pneumatic compression device Consult Discharge Plan - Plan Referrals: Julieth Carias, PAC [Physician Um Nurse] - 05/27/16 2:15 pm Marisa Dobbs, AUTOMATIC DIE CUTTING MACHINE OPERATOR [Primary Care Provider] - Tanner Jaquez MD [Partnered Physician] - 05/29/16 1:30 pm
--- NOTE | 2016-05-14 16:33 | Internal Med Progress Note ---
Date of Encounter: 05/14/16 Time of Encounter: 13:45 - Assessment and plan (1) Community acquired pneumonia Current Visit: Yes Status: Acute Assessment and plan: Clinically improving continue Azithromycin and Ceftriaxone monitor O2 sat O2 supplementation as needed (2) Acute renal failure due to tubular necrosis Current Visit: Yes Status: Suspected Assessment and plan: Kidney function improved from previous day Urine output increasing BP improved nephro eval appreciated continue to monitor (3) Atrial fibrillation Current Visit: Yes Status: Acute Assessment and plan: Remains tachycardic Will give one additional dose of Cardizem 120mg PO and start Cardizem 360mg PO in am closely monitor HR, goal HR<100 not a candidate for anticoagulation due to history of recurrent falls. Qualifiers: Atrial fibrillation type: chronic Qualified Code(s): I48.2 - Chronic atrial fibrillation (4) DVT prophylaxis Current Visit: Yes Status: Acute Assessment and plan: Lovenox SQ (5) Fracture of femoral neck Current Visit: Yes Status: Acute Assessment and plan: s/p right hip hemiarthroplasty- POD #2 Ortho eval appreciated PT/OT eval pain control Qualifiers: Encounter type: subsequent encounter Fracture type: closed Laterality: right Qualified Code(s): S72.001D - Fracture of unspecified part of neck of right femur, subsequent encounter for closed fracture with routine healing (6) Hyperkalemia Current Visit: Yes Status: Acute Assessment and plan: Improved one dose kayxelate given no EKG changes noted will continue to monitor (7) Multiple falls Current Visit: Yes Status: Acute Assessment and plan: Will have PT/OT evals. maintain fall precautions (8) Screening for depression Current Visit: Yes Status: Acute Assessment and plan: psychiatry eval requested - Subjective Interval history: Patient seen and examined with present at bedside. Pt resting in bed and denies any pain however becomes tearful when questioned about what's on his mind and if he is sad. He reports of having too much on his mind and withdraws from the conversation. Patient's states that for the last couple of years she has seen him withdraw from his usual activities and appears to be sad and depressed. She states his sleep and eating habits have been worsened with excessive sleepiness and very minimal appetite. They have never consulted a psychiatrist in the past. Patient denies any suicidal ideation but reports of being sad. also reports of patient loosing a close friend few months back which worsened patient's mentation. - Constitutional Vitals: Temp Pulse Resp BP Pulse Ox 98.0 F 101 18 118/62 93 L 05/14/16 15:56 05/14/16 15:56 05/14/16 15:56 05/14/16 15:56 05/14/16 15:56 General appearance: Present: A&O X 3, pleasant, no acute distress, answers questions appropriately - Head Head exam: Present: atraumatic, normal inspection - Eye Eye exam: Present: normal appearance. Absent: scleral icterus - Respiratory Respiratory exam: Present: decreased breath sounds. Absent: respiratory distress, wheezes - Cardiovascular Cardiovascular exam: Present: irregular rhythm, +S1, +S2, tachycardia - GI/Abdominal GI/Abdominal exam: Present: normal bowel sounds, soft. Absent: tenderness - Extremities Exam Extremities exam: Present: warm, radial pulses palpable and symetrical. Absent : pedal edema - Neurological Exam Neurological exam: Present: alert, oriented X3, no focal deficits - Psychiatric Psychiatric exam: Present: depressed Internal Medicine: Result - Labs CBC & Chem 7: 05/14/16 04:56 05/14/16 04:56 Labs: Short CBC 05/14/16 Range/Units 04:56 WBC 9.5 (4.3-11.1) K/mcL Hgb 10.8 L (12.9-16.9) g/dL Hct 35.3 L (37.5-50.1) % Plt Count 169 (140-400) K/mcL BMP 05/14/16 04:56 Sodium 141 Potassium 4.8 H Chloride 110 H Carbon Dioxide 24 BUN 87 H Creatinine 2.98 H Glucose 126 H Calcium 8.9 - ABG Interpretation ABG results: PT/INR, D-dimer PT 12.4 Seconds (9.4-12.1) H 05/12/16 05:41 - VTE Documentation of Mechanical Device: Intermittent pneumatic compression device Consult Discharge Plan - Plan Referrals: Julieth Carias, PAC [Physician Principal Product Manager] - 05/27/16 2:15 pm Marisa Dobbs, SALES TRAINING REPRESENTATIVE [Primary Care Provider] - Tanner Jaquez MD [Partnered Physician] - 05/29/16 1:30 pm
[2016-05-14] MEDS ORDERED: Diltiazem CD (24hr) 120 MG CAPSULE PO ONE (16:35)
[2016-05-14] MEDS: traZODone 50 MG TABLET PO SCH ×2 (21:31→23:42)
[2016-05-15 05:43] LABS: Hematocrit 32.6 % (37.5-50.1); Mean Corpuscular HGB Conc 30.7 g/dL (31.6-35.5); Mean Corpuscular Hemoglobin 32.1 pg (28.0-33.3); Mean Corpuscular Volume 104.5 fL (83.0-100.0); Mean Platelet Volume 10.1 fL (9.4-12.4); Platelet Count 165 K/mcL (140-400); Red Blood Count 3.12 M/mcL (4.19-5.50); Red Cell Distribution Width 14.6 % (11.5-14.5)
[2016-05-15] MEDS: *HR* Enoxaparin 30 MG/0.3 ML SYRINGE SQ SCH ×2 (05:56→17:14)
[2016-05-15 07:20] LABS: Lymphocytes # 0.7 K/mcL (0.6-4.6); Monocytes # 0.9 K/mcL (0.0-1.3); Neutrophils # 9.7 K/mcL (1.6-8.9); Platelet Estimate Normal (Normal)
[2016-05-15 08:57] LABS: Calcium 8.8 mg/dL (8.6-10.8); Magnesium 2.2 mg/dL (1.6-2.6); Phosphorous 3.3 mg/dL (2.3-4.7); Potassium 4.2 mEq/L (3.5-4.5)
[2016-05-15] MEDS: Diltiazem CD (24hr) 180 MG CAPSULE PO SCH (09:17)
[2016-05-15] MEDS: Calcium Acetate 667 MG CAPSULE PO SCH ×3 (09:17→17:15)
[2016-05-15] MEDS: Folic Acid 1 MG TABLET PO SCH (09:18)
[2016-05-15] MEDS: Metoprolol XL (24 HR) Succ 50 MG TAB.ER.24H PO SCH ×2 (09:18→22:20)
[2016-05-15] MEDS: Megestrol Acetate 400 MG/10 ML UDC PO SCH ×2 (09:18→22:21)
[2016-05-15] MEDS: Pantoprazole 40 MG VIAL IVP SCH (09:18)
[2016-05-15] MEDS: Ascorbic Acid 500 MG TABLET PO SCH ×2 (09:18→17:15)
[2016-05-15] MEDS: Famotidine 20 MG TABLET PO SCH (09:18)
[2016-05-15] MEDS: Multivit/Ca/Min/Fe/FA 1 TAB TABLET PO SCH (09:18)
[2016-05-15] MEDS: Cyanocobalamin (B-12) 1,000 MCG/ML VIAL IM SCH (09:19)
--- NOTE | 2016-05-15 10:23 | Consult Note ---
Date of Encounter: 05/15/16 Time of Encounter: 10:00 Assessment & Recommendation (1) Altered mental status Current visit: Yes Status: Acute Assessment & Recommendation: Patient appears confused during the interview. At this time I am unable to assess further about depression. Per staff patient has been confused for several days. I attempted to contact family regarding patient's baseline. Would recommend discontinuing temazepam for sleep and using trazodone or some nausea as a sleep aid. At this point patient can follow-up with a psychiatrist as an outpatient once his medical issues have been addressed. Qualifiers: Altered mental status type: unspecified Qualified Code(s): R41.82 - Altered mental status, unspecified History of Present Illness Patient: new to practice Requesting Physician: Royce Hart DO Reason for consult: depression History of present illness: Mr. Leon is a 80 year old male with a possible history of depression, apparently reporting some depressed mood yesterday in the hospital. He was admitted earlier this month after a fall and subsequent right femoral neck fracture. Patient is currently postoperative day 3 from this procedure. Patient appears confused at times during the interview. He is able to state that he never has seen a psychiatrist in the past and this is confirmed by record. 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 He denied depressed mood but was somewhat upset and wanted his called. Patient was not oriented to time and thought the year was 1937. He does not appear to be responding to internal stimuli. He denied any auditory or visual hallucinations. He denied thoughts of wanting to hurt himself or others. Staff reports that the son will be here later. Apparently called into the hospital and requested a psychiatry consult be canceled. Attempted to contact at number in chart by there was no answer. CC: Royce Hart DO Past Med Surg Social Fam HX - Past Medical History Medical history: arthritis, asthma, atrial fibrillation, cancer, CVA, hypertension - Past Psychiatric History Psychiatric history: Denies: no psych history Family psychiatric history: No Family History of Suicide: None - Past Surgical History Surgical History: other (Cholecystectomy, back surgery, brachytherapy for prostate cancer, skin biopsy, left total hip) - Social History Smoking Status: Former smoker Smokeless Tobacco Status: No Alcohol use: none Drug use: none Occupational status: retired Current living situation: Home, With Family Medications & Allergies Allopurinol [Zyloprim] 100 mg PO DAILY 05/11/16 [History] Calcitriol [Rocaltrol] 0.25 mcg PO DAILY 05/11/16 [History] Diltiazem HCl [Cartia Xt] 240 mg PO DAILY 05/11/16 [History] Diphenhydramine HCl [Nighttime Sleep Aid] 100 mg PO HS 05/11/16 [History] Famotidine [Acid Real Time Operator] 10 mg PO DAILY 05/11/16 [History] Folic Acid 1,200 mcg PO DAILY 05/11/16 [History] Furosemide [Furosemide] 40 mg PO BID 05/11/16 [History] HYDROcodone/Acet 5/325 mg [[place] 5-325 mg] 1 tab PO QID PRN 05/11/16 [History] Megestrol Acetate [Megace] 400 mg PO BID 05/11/16 [History] Metoprolol Succinate [Toprol Xl] 100 mg PO BID 05/11/16 [History] Tamsulosin [Flomax] 0.4 mg PO DAILY 05/11/16 [History] TraZODone 50 mg PO HS 05/11/16 [History] Allergies No Known Allergies Allergy (Verified 05/06/16 12:16) Review of Systems ROS limited: due to patient condition Psychiatric: Reports: anxiety, abnormal sleep pattern, change in appetite ( Decreased), difficulty concentrating Mental Status Exam Patient orientation: Yes Person, No Time, Yes Place, No Circumstance Level of alertness: Alert Patient appearance: Unkempt Behavior: anxious, distractible Psychomotor activity: Slowed Eye contact: Fleeting Contact Mood description: Anxious Affect description: blunted Speech pattern: Normal rate, Normal rhythm, Normal tone Speech volume: Normal Thought process: Disorganized Thought content: No Suicidal ideation, No Homicidal ideation Perceptual disturbances: No Auditory hallucinations, No Visual hallucinations Attention span: Capable of Focused Attention Memory description: Immediate Impaired, Recent Impaired, Remote Intact Patient reliability: Not Reliable Historian Intelligence estimate: Average Judgment: Poor Insight: Minimal Results - Vital Signs Vital signs: Temp Pulse Resp BP Pulse Ox 97.9 F 101 18 124/74 93 L 05/15/16 06:57 05/15/16 06:57 05/15/16 06:57 05/15/16 06:57 05/15/16 06:57 - Labs Labs: Laboratory Last Values WBC 11.3 K/mcL (4.3-11.1) H 05/15/16 05:02 RBC 3.12 M/mcL (4.19-5.50) L 05/15/16 05:02 Hgb 10.0 g/dL (12.9-16.9) L 05/15/16 05:02 Hct 32.6 % (37.5-50.1) L 05/15/16 05:02 MCV 104.5 fL (83.0-100.0) H 05/15/16 05:02 MCH 32.1 pg (28.0-33.3) 05/15/16 05:02 MCHC 30.7 g/dL (31.6-35.5) L 05/15/16 05:02 RDW 14.6 % (11.5-14.5) H 05/15/16 05:02 Plt Count 165 K/mcL (140-400) 05/15/16 05:02 MPV 10.1 fL (9.4-12.4) 05/15/16 05:02 Immature Gran % Test Not Performed 05/15/16 05:02 Seg Neutrophils % 70.0 % 05/15/16 05:02 Band Neutrophils % 16.0 % (0-4) H 05/15/16 05:02 Lymphocytes % 6.0 % 05/15/16 05:02 Monocytes % 8.0 % 05/15/16 05:02 Eosinophils % Test Not Performed 05/15/16 05:02 Basophils % Test Not Performed 05/15/16 05:02 Neutrophils # 9.7 K/mcL (1.6-8.9) H 05/15/16 05:02 Lymphocytes # 0.7 K/mcL (0.6-4.6) 05/15/16 05:02 Monocytes # 0.9 K/mcL (0.0-1.3) 05/15/16 05:02 Eosinophils # Test Not Performed 05/15/16 05:02 Basophils # Test Not Performed 05/15/16 05:02 Reactive Lymphocytes Present (Not Present) A 05/13/16 05:54 Platelet Estimate Normal (Normal) 05/15/16 05:02 Large Platelets Present (Not Present) A 05/13/16 05:54 Polychromasia 1+ (Not Present) A 05/13/16 05:54 Basophilic Stippling 1+ (Not Present) A 05/13/16 05:54 Microcytosis Present (Not Present) A 05/12/16 05:41 PT 12.4 Seconds (9.4-12.1) H 05/12/16 05:41 INR 1.1 05/12/16 05:41 Sodium 144 mEq/L (136-145) 05/15/16 06:56 Potassium 4.2 mEq/L (3.5-4.5) 05/15/16 06:56 Chloride 112 mEq/L (98-109) H 05/15/16 06:56 Carbon Dioxide 23 mEq/L (19-29) 05/15/16 06:56 BUN 75 mg/dL (8-26) H 05/15/16 06:56 Creatinine 2.22 mg/dL (0.72-1.25) H 05/15/16 06:56 Est GFR ( Amer) 35 (> 60) L 05/15/16 06:56 Est GFR (Non-Af Amer) 29 (> 60) L 05/15/16 06:56 BUN/Creatinine Ratio 34 (6-26) H 05/15/16 06:56 Glucose 111 mg/dL (70-99) H 05/15/16 06:56 POC Glucose 122 (58-89) H 05/14/16 07:37 Calculated Osmolality 321 (280-300) H 05/15/16 06:56 Lactic Acid 1.2 mmol/L (0.5-2.2) 05/11/16 12:30 Uric Acid 7.5 mg/dL (3.5-7.2) H 05/11/16 14:59 Calcium 8.8 mg/dL (8.6-10.8) 05/15/16 06:56 Ionized Calcium 1.09 mmol/L (1.15-1.35) L 05/12/16 05:41 Phosphorus 3.3 mg/dL (2.3-4.7) 05/15/16 06:56 Magnesium 2.2 mg/dL (1.6-2.6) 05/15/16 06:56 Iron 19 mcg/dL (65-175) L 05/13/16 05:54 % Saturation 8 % (20-55) L 05/13/16 05:54 Transferrin 172 mg/dL (174-364) L 05/13/16 05:54 Ferritin 233 ng/ml (22-275) 05/13/16 05:54 Total Bilirubin 0.8 mg/dL (0.2-1.2) 05/12/16 05:41 Direct Bilirubin 0.5 mg/dL (0.0-0.5) 05/11/16 14:59 Indirect Bilirubin 0.3 mg/dL (0.0-1.2) 05/11/16 14:59 AST 8 Units/L (5-34) 05/12/16 05:41 ALT 11 Units/L (0-55) 05/12/16 05:41 Alkaline Phosphatase 130 Units/L (38-126) H 05/12/16 05:41 Troponin I 0.02 ng/mL (0-0.03) 05/11/16 11:32 B-Natriuretic Peptide 313 pg/mL (0-100) H 05/11/16 11:32 Serum Total Protein 6.0 g/dL (6.0-8.3) 05/12/16 05:41 Albumin 2.3 g/dL (3.5-5.0) L 05/13/16 05:54 Globulin 3.3 g/dL (2.4-3.5) 05/12/16 05:41 Albumin/Globulin Ratio 0.8 (1.1-2.2) L 05/12/16 05:41 Prealbumin 11.0 mg/dL (18.0-45.0) L 05/13/16 04:56 Lipase 11 Units/L (8-78) 05/11/16 14:59 Vitamin B12 154 pg/mL (213-816) L 05/13/16 04:56 25-OH Vitamin D Total 28 ng/mL (30-80) L 05/13/16 04:56 Folate 17.2 ng/mL (7.0-31.4) 05/13/16 04:56 PTH Intact 464.2 pg/ml (8.5-72.5) H 05/13/16 05:54 Urine Color Dark Yellow (Yellow) 05/11/16 13:20 Urine Clarity Clear (Clear) 05/11/16 13:20 Urine pH 5.5 pH Units (5.0-8.0) 05/11/16 13:20 Ur Specific [place] 1.022 (1.010-1.025) 05/11/16 13:20 Urine Protein Negative mg/dL (Neg-Trace) 05/11/16 13:20 Urine Glucose (UA) Normal mg/dL (Normal) 05/11/16 13:20 Urine Ketones Negative mg/dL (Negative) 05/11/16 13:20 Urine Blood Negative (Negative) 05/11/16 13:20 Urine Nitrite Negative (Negative) 05/11/16 13:20 Urine Bilirubin Moderate (Negative) H 05/11/16 13:20 Urine Urobilinogen Normal mg/dL (Normal) 05/11/16 13:20 Ur Leukocyte Esterase Trace (Negative) H 05/11/16 13:20 Urine Microscopic RBC 3-5 per hpf (0-3) H 05/11/16 13:20 Urine Microscopic WBC 0-3 per hpf (0-3) 05/11/16 13:20 Ur Squamous Epith Cells Many per lpf (None-Few) H 05/11/16 13:20 Urine Bacteria None Seen per hpf (None-Few) 05/11/16 13:20 Hyaline Casts Few per lpf (None-Few) 05/11/16 13:20 Ur Culture Indicated? YES (NO) A 05/11/16 13:20 Urine Total Volume 1.37 Liters (0.80-1.80) 05/14/16 04:18 Urine Creatinine 105 mg/dL 05/14/16 04:18 Ur Creatinine 24 Hour 1.44 g/day (0.71-1.65) 05/14/16 04:18 Ur Total Protein 24 Hr 370 mg/day (0-299) H 05/14/16 04:18 Protein/Creatinin Ratio 0.26 mg/mg (0-0.20) H 05/14/16 04:18 Urine Sodium 32.0 mEq/L 05/14/16 04:18 Ur Sodium 24 Hour 44 mEq/day (40-220) 05/14/16 04:18 Urine Urea Nitrogen 709 mg/dL 05/14/16 04:18 Ur Urea Nitrogen 24 Hr 9.7 g/day (12.0-20.0) L 05/14/16 04:18 Urine Total Protein 27 mg/dL (1-14) H 05/14/16 04:18 Specimen Rejected Hemolyzed 05/15/16 05:02 Consult Discharge Plan - Plan Referrals: Julieth Carias, DM [Physician Middle School Science Teacher] - 05/27/16 2:15 pm Marisa Dobbs, NA [Primary Care Provider] - Tanner Jaquez MD [Partnered Physician] - 05/29/16 1:30 pm
[2016-05-15] MEDS: Levofloxacin 500 MG/100 ML 500 MG/100 ML BAG IVPB SCH (10:46)
[2016-05-15] MEDS: 0.9 % Sodium Chloride 1,000 ML IVC SCH (10:46)
--- NOTE | 2016-05-15 12:35 | Nephrology Progress Note ---
Date of Encounter: 05/15/16 Time of Encounter: 12:30 - Assessment and Plan (1) Acute on chronic renal failure Current Visit: Yes Status: Acute Patient with nonoliguric CHAVO/CKD. Urine output is increasing and the creatinine is decreasing. Hopeful for recovery back to baseline renal function. Continue with MIV for now and can discontinue . Avoid nephrotoxins. (2) Atrial fibrillation Current Visit: Yes Status: Acute Per cardiology patient is not a candidate for anticoagulation. Rate controlled. Management per cardiology. Qualifiers: Atrial fibrillation type: chronic Qualified Code(s): I48.2 - Chronic atrial fibrillation (3) Closed right femoral fracture Current Visit: Yes Status: Acute S/P surgery. Orthopedic surgery managing. Qualifiers: Encounter type: initial encounter Femur location: neck Qualified Code(s) : S72.001A - Fracture of unspecified part of neck of right femur, initial encounter for closed fracture (4) Community acquired pneumonia Current Visit: Yes Status: Acute Continue antibiotics. (5) Hyperkalemia Current Visit: Yes Status: Acute Medical management. (6) Hypotension Current Visit: Yes Status: Acute Ok to discontinue fluids tomorrow. Hold antihypertensives until BP rises higher. Qualifiers: Qualified Code(s): I95.9 - Hypotension, unspecified (7) Anemia Current Visit: Yes Status: Acute Monitor hemoglobin and transfuse as needed. Vitamin b12 supplementation ordered. Qualifiers: Qualified Code(s): D64.9 - Anemia, unspecified (8) Hyperparathyroidism Current Visit: Yes Status: Acute Control phosphorus. Replace calcium. Replace vitamin D. Subjective Principal diagnosis: POD#2 S/P right hip hemiarthroplasty Interval history: Patient seems to have become progressively confused. Today he seems tired and does not participate in the history. His son is at his bedside. Objective - Vital Signs Vital signs: Vital Signs Temp Pulse Resp BP Pulse Ox 05/15/16 11:52 97.6 F 106 15 128/80 93 L 05/15/16 06:57 97.9 F 101 18 124/74 93 L 05/15/16 00:49 98.2 F 106 17 114/72 94 L 05/14/16 20:39 98.1 F 116 17 117/75 92 L 05/14/16 15:56 98.0 F 101 18 118/62 93 L Intake and Output 1205/15/16 05/15/16 23:59 07:59 15:59 Intake Total 200 / 200 1110 / 1110 Output Total 100 / 100 Balance 100 / 100 1109 / 1109 Intake: IV Fluids 200 / 200 1000 / 1000 0.9 % Sodium Chloride 1, 1000 / 1000 000 ML @ 75 mls/hr IVC . [id number] LUDIN Rx#: [id number] Rocephin 1,000 MG In 200 / 200 Dextrose 5% (Minibag+) 100 ML 100 ML @ 200 mls/ hr IVPB Q12HR LUDIN Rx#: [id number] Oral 110 / 110 Output: Urine 100 / 100 Other: Meal Breakfast Percent of Meal Consumed 10% Stool Size Small Stool Consistency formed Stool Characteristics Normal for Patient Stool Color Brown # Bowel Movements 1 1 - General Appearance General appearance: Present: well-developed, well-nourished EENT: Present: ATNC, hearing intact Neck: Present: supple Additional Comments: respirations are unlabored. Cardiology: Present: regular rate Gastrointestinal: Present: normoactive bowel sounds Integumentary: Present: warm and dry Neurologic: Present: confused Musculoskeletal: Present: no cyanosis Additional Comments: calm - Lab 05/15/16 05:02 05/15/16 06:56 Most recent lab results Calcium 8.8 mg/dL (8.6-10.8) 05/15/16 06:56 Phosphorus 3.3 mg/dL (2.3-4.7) 05/15/16 06:56 Magnesium 2.2 mg/dL (1.6-2.6) 05/15/16 06:56 Urine Creatinine 105 mg/dL 05/14/16 04:18 Ur Total Protein 24 Hr 370 mg/day (0-299) H 05/14/16 04:18 Urine Sodium 32.0 mEq/L 05/14/16 04:18 Urine Total Protein 27 mg/dL (1-14) H 05/14/16 04:18 - VTE Documentation of Mechanical Device: Intermittent pneumatic compression device Consult Discharge Plan - Plan Referrals: Julieth Carias, PAC [Physician Assistant Farm Operations Manager] - 05/27/16 2:15 pm Marisa Dobbs, RISK MANAGEMENT SPECIALIST [Primary Care Provider] - Tanner Jaquez MD [Partnered Physician] - 05/29/16 1:30 pm
[2016-05-15] MEDS ORDERED: Ipratropium/Albuterol Neb 3 ML IH ONE (12:52)
[2016-05-15] MEDS ORDERED: Diltiazem CD (24hr) 120 MG CAPSULE PO ONE (14:05)
--- NOTE | 2016-05-15 16:20 | Internal Med Progress Note ---
Date of Encounter: 05/15/16 Time of Encounter: 12:30 - Assessment and plan (1) Community acquired pneumonia Current Visit: Yes Status: Acute Assessment and plan: Worsening leukocytosis Will start Duoneb q4h prn d/c azithro and ceftriaxone Start Levofloxacin, concern for aspiration (2) Acute renal failure due to tubular necrosis Current Visit: Yes Status: Suspected Assessment and plan: Kidney function improved from previous day Urine output increasing BP improved nephro eval appreciated continue to monitor (3) Atrial fibrillation Current Visit: Yes Status: Acute Assessment and plan: Rate better control Last recorder HR: 95 Continue Cardizem 360mg PO closely monitor HR, goal HR<100 not a candidate for anticoagulation due to history of recurrent falls. Qualifiers: Atrial fibrillation type: chronic Qualified Code(s): I48.2 - Chronic atrial fibrillation (4) DVT prophylaxis Current Visit: Yes Status: Acute Assessment and plan: Lovenox SQ (5) Fracture of femoral neck Current Visit: Yes Status: Acute Assessment and plan: s/p right hip hemiarthroplasty- POD #3 Ortho eval appreciated PT/OT eval pain control Qualifiers: Encounter type: subsequent encounter Fracture type: closed Laterality: right Qualified Code(s): S72.001D - Fracture of unspecified part of neck of right femur, subsequent encounter for closed fracture with routine healing (6) Hyperkalemia Current Visit: Yes Status: Acute Assessment and plan: resolved continue to monitor electrolytes and replace as needed (7) Multiple falls Current Visit: Yes Status: Acute Assessment and plan: Will have PT/OT evals. maintain fall precautions (8) Screening for depression Current Visit: Yes Status: Acute Assessment and plan: due to confused mental status, psych unable to assess Will d/c temezepam and continue trazadone family does not want further psych evaluation at this time. Psych eval appreciated. - Subjective Interval history: Patient seen and examined. Denies any distress but is confused. Stating the year is 1930s but oriented to self and place. Pt was more oriented and alert yesterday. not reachable today however called the floor and requested to cancel the psych consult but by that time psych had already seen the patient. no overnight issues were reported. - Constitutional Vitals: Temp Pulse Resp BP Pulse Ox 98.2 F 90 16 108/65 100 05/15/16 16:14 05/15/16 16:14 05/15/16 16:14 05/15/16 16:14 05/15/16 16:14 General appearance: Present: A&O X 2, pleasant, no acute distress, answers questions appropriately - Head Head exam: Present: atraumatic, normal inspection - Eye Eye exam: Present: normal appearance. Absent: scleral icterus - Respiratory Respiratory exam: Present: wheezes (bilateral expiratory wheezing, coarse breath sounds on bilateral bases). Absent: respiratory distress - Cardiovascular Cardiovascular exam: Present: irregular rhythm, +S1, +S2 - GI/Abdominal GI/Abdominal exam: Present: normal bowel sounds, soft. Absent: tenderness - Extremities Exam Extremities exam: Present: warm, radial pulses palpable and symetrical. Absent : calf tenderness - Neurological Exam Neurological exam: Present: alert - Psychiatric Psychiatric exam: Present: normal affect, normal mood Internal Medicine: Result - Labs CBC & Chem 7: 05/15/16 05:02 05/15/16 06:56 Labs: Short CBC 05/15/16 Range/Units 05:02 WBC 11.3 H (4.3-11.1) K/mcL Hgb 10.0 L (12.9-16.9) g/dL Hct 32.6 L (37.5-50.1) % Plt Count 165 (140-400) K/mcL Neutrophils # 9.7 H (1.6-8.9) K/mcL BMP 05/15/16 06:56 Sodium 144 Potassium 4.2 Chloride 112 H Carbon Dioxide 23 BUN 75 H Creatinine 2.22 H Glucose 111 H Calcium 8.8 - ABG Interpretation ABG results: PT/INR, D-dimer PT 12.4 Seconds (9.4-12.1) H 05/12/16 05:41 - VTE Documentation of Mechanical Device: Intermittent pneumatic compression device Consult Discharge Plan - Plan Referrals: Julieth Carias PAC [Physician Software Engineer] - 05/27/16 2:15 pm Marisa Dobbs CNP [Primary Care Provider] - Tanner Jaquez MD [Partnered Physician] - 05/29/16 1:30 pm
[2016-05-15] MEDS ORDERED: Ipratropium/Albuterol Neb 3 ML IH PRN (16:21)
[2016-05-15] MEDS: traZODone 50 MG TABLET PO SCH (22:19)
[2016-05-16] MEDS: 0.9 % Sodium Chloride 1,000 ML IVC SCH (02:56)
[2016-05-16 05:23] LABS: Hematocrit 31.8 % (37.5-50.1); Hemoglobin 9.7 g/dL (12.9-16.9); Mean Corpuscular HGB Conc 30.5 g/dL (31.6-35.5); Mean Corpuscular Hemoglobin 31.9 pg (28.0-33.3); Mean Corpuscular Volume 104.6 fL (83.0-100.0); Nucleated Red Blood Cells 0.4 /100 WBC (0); Platelet Count 173 K/mcL (140-400); Red Blood Count 3.04 M/mcL (4.19-5.50); Red Cell Distribution Width 14.8 % (11.5-14.5)
[2016-05-16] MEDS: *HR* Enoxaparin 30 MG/0.3 ML SYRINGE SQ SCH ×2 (05:38→17:13)
[2016-05-16 05:45] LABS: Calcium 9.1 mg/dL (8.6-10.8); Magnesium 2.2 mg/dL (1.6-2.6); Phosphorous 2.4 mg/dL (2.3-4.7); Potassium 4.1 mEq/L (3.5-4.5)
[2016-05-16 06:09] LABS: Lymphocytes # 0.6 K/mcL (0.6-4.6); Neutrophils # 8.7 K/mcL (1.6-8.9); Platelet Estimate Slight Decrease (Normal)
[2016-05-16] MEDS: Cyanocobalamin (B-12) 1,000 MCG/ML VIAL IM SCH (09:19)
[2016-05-16] MEDS: Pantoprazole 40 MG VIAL IVP SCH (09:19)
[2016-05-16] MEDS: Megestrol Acetate 400 MG/10 ML UDC PO SCH ×2 (09:19→21:19)
[2016-05-16] MEDS: Famotidine 20 MG TABLET PO SCH (09:19)
[2016-05-16] MEDS: Diltiazem CD (24hr) 180 MG CAPSULE PO SCH (09:19)
[2016-05-16] MEDS: Metoprolol XL (24 HR) Succ 50 MG TAB.ER.24H PO SCH ×2 (09:20→21:19)
[2016-05-16] MEDS: Calcium Acetate 667 MG CAPSULE PO SCH ×3 (09:20→17:13)
[2016-05-16] MEDS: Multivit/Ca/Min/Fe/FA 1 TAB TABLET PO SCH (09:20)
[2016-05-16] MEDS: Ascorbic Acid 500 MG TABLET PO SCH ×2 (09:20→17:13)
[2016-05-16] MEDS: Folic Acid 1 MG TABLET PO SCH (09:20)
--- NOTE | 2016-05-16 10:38 | Nephrology Progress Note ---
Date of Encounter: 05/16/16 Time of Encounter: 10:36 - Assessment and Plan (1) Acute on chronic renal failure Current Visit: Yes Status: Acute Patient with nonoliguric CHAVO/CKD secondary to ATN from volume depletion and nephrotoxins. Creatinine continues to decrease and is approaching his baseline creatinine of 1.5. Patient has edema so I recommend that his fluids are discontinued. Will add back his home furosemide daily tomorrow. Ok for discharge from a renal point of view. I recommend follow-up BMP 5-7 days after discharge with results to [facility] and his PCP. He should follow up with Dr. Kelley in the next 2-4 months if not already scheduled. (2) Atrial fibrillation Current Visit: Yes Status: Acute Per cardiology patient is not a candidate for anticoagulation. Rate controlled. Management per cardiology. Qualifiers: Atrial fibrillation type: chronic Qualified Code(s): I48.2 - Chronic atrial fibrillation (3) Closed right femoral fracture Current Visit: Yes Status: Acute S/P surgery. Orthopedic surgery managing. Qualifiers: Encounter type: initial encounter Femur location: neck Qualified Code(s) : S72.001A - Fracture of unspecified part of neck of right femur, initial encounter for closed fracture (4) Community acquired pneumonia Current Visit: Yes Status: Acute Continue antibiotics. (5) Hyperkalemia Current Visit: Yes Status: Acute Medical management. (6) Hypotension Current Visit: Yes Status: Acute Blood pressure improved. Patient tolerating home antihypertensive medications. Furosemide added and can titrate as needed. Qualifiers: Qualified Code(s): I95.9 - Hypotension, unspecified (7) Anemia Current Visit: Yes Status: Acute Patient has iron deficiency and is on oral iron replacement. He has vitamin b12 deficiency and has started replacement with IM cyanacobalamin. Continue to monitor hemoglobin and continue replacement of iron and vitamin b12 on an outpatient basis. If he has not had a GI workup for iron deficiency anemia this should be arranged by his PCP. Qualifiers: Qualified Code(s): D64.9 - Anemia, unspecified (8) Hyperparathyroidism Current Visit: Yes Status: Acute PTH elevated - Need calcium replaced. Phosphorus is controlled. Replacing vitamin D. Will need to monitor for improvement. Outpatient management. Subjective Principal diagnosis: POD#2 S/P right hip hemiarthroplasty Interval history: Patient seems to be more alert today. He is frustrated at being in the hosptal and wants to leave. His pain is controlled. ROS otherwise seems stable. Objective - Vital Signs Vital signs: Vital Signs Temp Pulse Resp BP Pulse Ox 05/16/16 07:39 98.4 F 97 16 125/79 95 05/16/16 04:45 98.3 F 95 16 115/74 93 L 05/16/16 01:32 98.3 F 85 17 115/73 97 05/15/16 20:42 99 15 111/69 95 05/15/16 16:14 98.2 F 90 16 108/65 100 05/15/16 16:06 16 85 L 05/15/16 11:52 97.6 F 106 15 128/80 93 L Intake and Output 05/15/16 05/16/16 05/16/16 23:59 07:59 15:59 Intake Total 1000 / 1000 Output Total 100 / 100 Balance -100 / -100 1000 / 1000 Intake: IV Fluids 1000 / 1000 0.9 % Sodium Chloride 1, 1000 / 1000 000 ML @ 75 mls/hr IVC . [id number] LUDIN Rx#: [id number] Output: Urine 100 / 100 Other: # Urine Diapers 1 1 1 # Bowel Movement Diapers 1 - General Appearance General appearance: Present: well-developed, well-nourished EENT: Present: ATNC Neck: Present: supple Additional Comments: Respirations are unlabored. Cardiology: Present: edema, regular rate Gastrointestinal: Absent: distended Integumentary: Present: warm and dry Additional Comments: More alert as compared to yesterday. Musculoskeletal: Present: no cyanosis Psychiatric: Present: mood/affect appropriate - Lab 05/16/16 04:58 05/16/16 04:58 Most recent lab results Calcium 9.1 mg/dL (8.6-10.8) 05/16/16 04:58 Phosphorus 2.4 mg/dL (2.3-4.7) 05/16/16 04:58 Magnesium 2.2 mg/dL (1.6-2.6) 05/16/16 04:58 Urine Creatinine 105 mg/dL 05/14/16 04:18 Ur Total Protein 24 Hr 370 mg/day (0-299) H 05/14/16 04:18 Urine Sodium 32.0 mEq/L 12/20/16 04:18 Urine Total Protein 27 mg/dL (1-14) H 05/14/16 04:18 - VTE Documentation of Mechanical Device: Intermittent pneumatic compression device Consult Discharge Plan - Plan Referrals: Julieth Carias, DM [Physician Foreign Correspondent] - 05/27/16 2:15 pm Marisa Dobbs, NA [Primary Care Provider] - Tanner Jaquez MD [Partnered Physician] - 05/29/16 1:30 pm
[2016-05-16] MEDS: Levofloxacin 500 MG/100 ML 500 MG/100 ML BAG IVPB SCH (11:21)
[2016-05-16] MEDS ORDERED: Vancomycin 1,000 MG in D5% in Water 250 ML IVPB ONE (17:50)
--- NOTE | 2016-05-16 18:19 | Internal Med Progress Note ---
Date of Encounter: 05/16/16 Time of Encounter: 13:45 - Assessment and plan (1) Community acquired pneumonia Current Visit: Yes Status: Acute Assessment and plan: Worsening leukocytosis Will start Duoneb q4h prn Clinically improving continue Levofloxacin, concern for aspiration Bandemia noted, unspecified CT chest consistent with pna and chronic emphysematous changes will continue duoneb q4h jana and prn if respiratory status worsens will consider steroid therapy (2) Acute renal failure due to tubular necrosis Current Visit: Yes Status: Suspected Assessment and plan: Kidney function improved from previous day Urine output increasing BP improved nephro eval appreciated continue to monitor (3) Atrial fibrillation Current Visit: Yes Status: Acute Assessment and plan: Rate better control Continue Cardizem 360mg PO closely monitor HR, goal HR<100 not a candidate for anticoagulation due to history of recurrent falls. Qualifiers: Atrial fibrillation type: chronic Qualified Code(s): I48.2 - Chronic atrial fibrillation (4) DVT prophylaxis Current Visit: Yes Status: Acute Assessment and plan: Lovenox SQ (5) Fracture of femoral neck Current Visit: Yes Status: Acute Assessment and plan: s/p right hip hemiarthroplasty- POD #4 Ortho eval appreciated PT/OT eval pain control Qualifiers: Encounter type: subsequent encounter Fracture type: closed Laterality: right Qualified Code(s): S72.001D - Fracture of unspecified part of neck of right femur, subsequent encounter for closed fracture with routine healing (6) Hyperkalemia Current Visit: Yes Status: Resolved (7) Multiple falls Current Visit: Yes Status: Acute Assessment and plan: Will have PT/OT evals. maintain fall precautions (8) Screening for depression Current Visit: Yes Status: Acute Assessment and plan: Son requesting psych eval again for depression awaiting psych consultation - Subjective Interval history: Patient seen and examined. Resting in chair, mental status AAO x 3 today. was able to participate with physical therapy and sit in chair. reported of having difficulty breathing this evening. 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 - Constitutional Vitals: Temp Pulse Resp BP Pulse Ox 97.7 F 86 18 116/77 96 05/16/16 15:22 05/16/16 15:22 05/16/16 17:56 05/16/16 15:22 05/16/16 17:56 General appearance: Present: A&O X 3, pleasant, no acute distress, obese, answers questions appropriately - Head Head exam: Present: atraumatic, normocephalic - Eye Eye exam: Present: normal appearance. Absent: scleral icterus - Respiratory Respiratory exam: Present: decreased breath sounds, wheezes (bilateral expiratory wheezing). Absent: respiratory distress - Cardiovascular Cardiovascular exam: Present: irregular rhythm, +S1, +S2 - GI/Abdominal GI/Abdominal exam: Present: normal bowel sounds, soft. Absent: tenderness - Extremities Exam Extremities exam: Present: pedal edema, warm, radial pulses palpable and symetrical. Absent: calf tenderness - Neurological Exam Neurological exam: Present: alert, oriented X3 Internal Medicine: Result - Labs CBC & Chem 7: 05/16/16 04:58 05/16/16 04:58 Labs: Short CBC 05/16/16 Range/Units 04:58 WBC 10.4 (4.3-11.1) K/mcL Hgb 9.7 L (12.9-16.9) g/dL Hct 31.8 L (37.5-50.1) % Plt Count 173 (140-400) K/mcL Neutrophils # 8.7 (1.6-8.9) K/mcL BMP 05/16/16 04:58 Sodium 146 H Potassium 4.1 Chloride 115 H Carbon Dioxide 23 BUN 58 H Creatinine 1.78 H Glucose 137 H Calcium 9.1 - ABG Interpretation ABG results: PT/INR, D-dimer PT 12.4 Seconds (9.4-12.1) H 05/12/16 05:41 - Impressions Impressions Chest CT 05/16/16 08:10 IMPRESSION: 4 mm pulmonary nodule in the right upper lobe. Recommend follow-up imaging as outlined below. Interstitial infiltrate at the right lung base. Recommend follow-up CT scan of the chest in 1-3 months to confirm resolution unless clinically indicated sooner Tiny left pleural effusion Fleischner Society guidelines for follow-up and management of pulmonary nodules: Nodule size less than or equal to 4 mm In a low-risk patient, no follow-up needed. In a high-risk patient, follow-up CT at 12 months; if unchanged, no further follow-up. Nodule size equals 4-6 mm In a low-risk patient, follow-up CT at 12 months; if unchanged, no further follow-up. In a high-risk patient, initial follow-up CT at 6-12 months then at 18-24 months if no change. Nodule size equals 6-8 mm In a low-risk patient, initial follow-up CT at 6-12 months then at 18-24 months if no change. In a high-risk patient, initial follow-up CT at 3-6 months then at 9-12 months and 24 months if no change. Nodule size greater than 8 mm In low-risk and high-risk patients follow-up CT at around 3, 9, and 24 months, contrast-enhanced CT, PET, and/or biopsy. Low risk patients include individuals with minimal or absent history of smoking and other known risk factors. High risk patients include individuals with a history of smoking or other known risk factors. Radiology 2005; [id number] These results percent results communications to be called to a license caregiver D/ / Micha Dobbs MD / Micha Dobbs MD Interpreting Provider: Micha Dobbs MD - VTE Documentation of Mechanical Device: Intermittent pneumatic compression device Consult Discharge Plan - Plan Referrals: Julieth Carias PAC [Physician Math And Science Division Chair] - 05/27/16 2:15 pm Marisa Dobbs, SPECIAL OFFICER AUTOMAT [Primary Care Provider] - Tanner Jaquez MD [Partnered Physician] - 05/29/16 1:30 pm
[2016-05-16] MEDS: Ipratropium/Albuterol Neb 3 ML IH SCH ×2 (20:55→23:42)
[2016-05-16] MEDS: traZODone 50 MG TABLET PO SCH (21:19)
[2016-05-17] MEDS: Ipratropium/Albuterol Neb 3 ML IH SCH ×6 (04:12→23:15)
[2016-05-17] MEDS: *HR* Enoxaparin 30 MG/0.3 ML SYRINGE SQ SCH ×2 (06:11→18:51)
[2016-05-17 06:52] LABS: Basophils % 0.3 %; Eosinophils # 0.2 K/mcL (0.0-0.6); Eosinophils % 1.7 %; Hematocrit 29.4 % (37.5-50.1); Immature Granulocytes % 4.1 % (0-4); Lymphocytes # 0.6 K/mcL (0.6-4.6); Lymphocytes % 5.5 %; Mean Corpuscular HGB Conc 30.6 g/dL (31.6-35.5); Mean Corpuscular Hemoglobin 31.9 pg (28.0-33.3); Mean Corpuscular Volume 104.3 fL (83.0-100.0); Mean Platelet Volume 9.8 fL (9.4-12.4); Monocytes # 0.9 K/mcL (0.0-1.3); Monocytes % 8.6 %; Neutrophils # 8.2 K/mcL (1.6-8.9); Nucleated Red Blood Cells 0.6 /100 WBC (0); Platelet Count 185 K/mcL (140-400); Red Blood Count 2.82 M/mcL (4.19-5.50); Red Cell Distribution Width 14.6 % (11.5-14.5); Segmented Neutrophils % 79.8 %
[2016-05-17 07:04] LABS: Calcium 9.6 mg/dL (8.6-10.8); Magnesium 2.4 mg/dL (1.6-2.6); Phosphorous 2.5 mg/dL (2.3-4.7); Potassium 4.4 mEq/L (3.5-4.5)
[2016-05-17 07:14] LABS: Rouleaux Present (Not Present)
[2016-05-17 07:16] LABS: Hypochromasia Present (Not Present); Platelet Estimate Normal (Normal)
[2016-05-17] MEDS: Famotidine 20 MG TABLET PO SCH (08:32)
[2016-05-17] MEDS: Diltiazem CD (24hr) 180 MG CAPSULE PO SCH (08:33)
[2016-05-17] MEDS: Megestrol Acetate 400 MG/10 ML UDC PO SCH ×2 (08:33→22:31)
[2016-05-17] MEDS: Metoprolol XL (24 HR) Succ 50 MG TAB.ER.24H PO SCH ×2 (08:33→22:31)
[2016-05-17] MEDS: Multivit/Ca/Min/Fe/FA 1 TAB TABLET PO SCH (08:33)
[2016-05-17] MEDS: Cyanocobalamin (B-12) 1,000 MCG/ML VIAL IM SCH (08:33)
[2016-05-17] MEDS: Ascorbic Acid 500 MG TABLET PO SCH ×2 (08:33→18:51)
[2016-05-17] MEDS: Calcium Acetate 667 MG CAPSULE PO SCH ×3 (08:33→18:50)
[2016-05-17] MEDS: Furosemide 40 MG TABLET PO SCH (08:33)
[2016-05-17] MEDS: Folic Acid 1 MG TABLET PO SCH (08:33)
[2016-05-17] MEDS: Pantoprazole 40 MG VIAL IVP SCH (08:34)
[2016-05-17] MEDS: Levofloxacin 500 MG/100 ML 500 MG/100 ML BAG IVPB SCH (12:28)
[2016-05-17] MEDS ORDERED: Lidocaine -MPF 1% 2 ML VIAL ID PRN (14:26)
--- NOTE | 2016-05-17 17:57 | Internal Med Progress Note ---
Date of Encounter: 05/17/16 Time of Encounter: 15:00 - Assessment and plan (1) Community acquired pneumonia Current Visit: Yes Status: Acute Assessment and plan: leukocytosis resoloved Respiratory status improved continue Duoneb q4h prn Clinically improving continue Levofloxacin, concern for aspiration Bandemia-resolved CT chest consistent with pna and chronic emphysematous changes will continue duoneb q4h jana and prn (2) Acute renal failure due to tubular necrosis Current Visit: Yes Status: Suspected Assessment and plan: Kidney function improved from previous day Urine output increasing BP improved nephro eval appreciated continue to monitor (3) Atrial fibrillation Current Visit: Yes Status: Acute Assessment and plan: Rate better control Continue Cardizem 360mg PO closely monitor HR, goal HR<100 not a candidate for anticoagulation due to history of recurrent falls. Qualifiers: Atrial fibrillation type: chronic Qualified Code(s): I48.2 - Chronic atrial fibrillation (4) DVT prophylaxis Current Visit: Yes Status: Acute Assessment and plan: Lovenox SQ (5) Fracture of femoral neck Current Visit: Yes Status: Acute Assessment and plan: s/p right hip hemiarthroplasty- POD #5 Ortho eval appreciated PT/OT eval pain control Qualifiers: Encounter type: subsequent encounter Fracture type: closed Laterality: right Qualified Code(s): S72.001D - Fracture of unspecified part of neck of right femur, subsequent encounter for closed fracture with routine healing (6) Hyperkalemia Current Visit: Yes Status: Resolved Assessment and plan: resolved continue to monitor electrolytes and replace as needed (7) Multiple falls Current Visit: Yes Status: Acute Assessment and plan: Will have PT/OT evals. maintain fall precautions - Subjective Interval history: Patient seen and examined with family present at bedside. States overall he feels much better. Mental Status at baseline. He is able to participate with physical therapy. Discharge pending placement - Constitutional Vitals: Temp Pulse Resp BP Pulse Ox 98.5 F 95 18 125/67 93 L 05/17/16 15:05 05/17/16 15:05 05/17/16 15:05 05/17/16 15:05 05/17/16 15:05 General appearance: Present: A&O X 3, pleasant, no acute distress, obese, answers questions appropriately - Head Head exam: Present: atraumatic, normocephalic - Eye Eye exam: Present: normal appearance. Absent: scleral icterus - Respiratory Respiratory exam: Present: CTAB. Absent: respiratory distress, wheezes - Cardiovascular Cardiovascular exam: Present: irregular rhythm, +S1, +S2 - GI/Abdominal GI/Abdominal exam: Present: normal bowel sounds, soft. Absent: tenderness - Extremities Exam Extremities exam: Present: pedal edema, warm, radial pulses palpable and symetrical. Absent: calf tenderness - Neurological Exam Neurological exam: Present: alert, oriented X3, no focal deficits - Psychiatric Psychiatric exam: Present: normal affect, normal mood Internal Medicine: Result - Labs CBC & Chem 7: 05/17/16 06:18 05/17/16 06:18 Labs: Short CBC 05/17/16 Range/Units 06:18 WBC 10.3 (4.3-11.1) K/mcL Hgb 9.0 L (12.9-16.9) g/dL Hct 29.4 L (37.5-50.1) % Plt Count 185 (140-400) K/mcL Neutrophils # 8.2 (1.6-8.9) K/mcL BMP 05/17/16 06:18 Sodium 145 Potassium 4.4 Chloride 114 H Carbon Dioxide 24 BUN 46 H D Creatinine 1.48 H Glucose 122 H Calcium 9.6 - ABG Interpretation ABG results: PT/INR, D-dimer PT 12.4 Seconds (9.4-12.1) H 05/12/16 05:41 - VTE Documentation of Mechanical Device: Intermittent pneumatic compression device Consult Discharge Plan - Plan Referrals: Julieth Carias PAC [Physician Telephone Switchboard Operator] - 05/27/16 2:15 pm Marisa Dobbs, NA [Primary Care Provider] - Tanner Jaquez MD [Partnered Physician] - 05/29/16 1:30 pm
--- NOTE | 2016-05-17 18:01 | Internal Med Progress Note ---
Date of Encounter: 05/17/16 Time of Encounter: 15:30 - Assessment and plan (1) Community acquired pneumonia Current Visit: Yes Status: Acute (2) Acute renal failure due to tubular necrosis Current Visit: Yes Status: Suspected (3) Atrial fibrillation Current Visit: Yes Status: Acute Qualifiers: Atrial fibrillation type: chronic Qualified Code(s): I48.2 - Chronic atrial fibrillation (4) DVT prophylaxis Current Visit: Yes Status: Acute (5) Fracture of femoral neck Current Visit: Yes Status: Acute Qualifiers: Encounter type: subsequent encounter Fracture type: closed Laterality: right Qualified Code(s): S72.001D - Fracture of unspecified part of neck of right femur, subsequent encounter for closed fracture with routine healing (6) Hyperkalemia Current Visit: Yes Status: Resolved (7) Multiple falls Current Visit: Yes Status: Acute - Subjective Interval history: Patient seen and examined with family present at bedside. She reports a worsening left lower extremity pain. Right foot warm and tender to touch-mild erythema noted on left distal lower extremity. She also noted to be hypertensive despite home antihypertensive therapy. She was initially going to be discharged, however due to these new findings, discharge is held for today. - Constitutional Vitals: Temp Pulse Resp BP Pulse Ox 98.5 F 95 18 125/67 93 L 05/17/16 15:05 05/17/16 15:05 05/17/16 15:05 05/17/16 15:05 05/17/16 15:05 General appearance: Present: A&O X 3, pleasant, no acute distress, obese, answers questions appropriately - Head Head exam: Present: atraumatic, normocephalic - Eye Eye exam: Present: normal appearance, conjuntiva pink, sclera anicteric - Respiratory Respiratory exam: Present: CTAB. Absent: respiratory distress, wheezes - Cardiovascular Cardiovascular exam: Present: RRR, +S1, +S2 - GI/Abdominal GI/Abdominal exam: Present: normal bowel sounds, soft. Absent: tenderness - Extremities Exam Extremities exam: Present: pedal edema, tenderness (RLE-mild erythema noted in distal RLE/tender to palpation, warm to touch), radial pulses palpable and symetrical. Absent: calf tenderness - Neurological Exam Neurological exam: Present: alert, oriented X3, no focal deficits Internal Medicine: Result - Labs CBC & Chem 7: 05/17/16 06:18 05/17/16 06:18 Labs: Short CBC 05/17/16 Range/Units 06:18 WBC 10.3 (4.3-11.1) K/mcL Hgb 9.0 L (12.9-16.9) g/dL Hct 29.4 L (37.5-50.1) % Plt Count 185 (140-400) K/mcL Neutrophils # 8.2 (1.6-8.9) K/mcL BMP 05/17/16 06:18 Sodium 145 Potassium 4.4 Chloride 114 H Carbon Dioxide 24 BUN 46 H D Creatinine 1.48 H Glucose 122 H Calcium 9.6 - ABG Interpretation ABG results: PT/INR, D-dimer PT 12.4 Seconds (9.4-12.1) H 05/12/16 05:41 - VTE Documentation of Mechanical Device: Intermittent pneumatic compression device Consult Discharge Plan - Plan Referrals: Julieth Carias, DM [Physician Travel Med Surg Rn] - 05/27/16 2:15 pm Marisa Dobbs, DISHWASHER PREPARER [Primary Care Provider] - Tanner Jaquez MD [Partnered Physician] - 05/29/16 1:30 pm
[2016-05-17] MEDS: traZODone 50 MG TABLET PO SCH (22:31)
[2016-05-18] MEDS: Ipratropium/Albuterol Neb 3 ML IH SCH ×6 (04:47→23:45)
[2016-05-18] MEDS: *HR* Enoxaparin 30 MG/0.3 ML SYRINGE SQ SCH ×2 (06:10→17:37)
[2016-05-18] MEDS: Levofloxacin 500 MG/100 ML 500 MG/100 ML BAG IVPB SCH (10:20)
[2016-05-18] MEDS: Megestrol Acetate 400 MG/10 ML UDC PO SCH ×2 (10:22→19:50)
[2016-05-18] MEDS: Pantoprazole 40 MG VIAL IVP SCH (10:22)
[2016-05-18] MEDS: Famotidine 20 MG TABLET PO SCH (10:22)
[2016-05-18] MEDS: Diltiazem CD (24hr) 180 MG CAPSULE PO SCH (10:22)
[2016-05-18] MEDS: Calcium Acetate 667 MG CAPSULE PO SCH ×3 (10:22→17:40)
[2016-05-18] MEDS: Furosemide 40 MG TABLET PO SCH (10:23)
[2016-05-18] MEDS: Ascorbic Acid 500 MG TABLET PO SCH ×2 (10:23→17:38)
[2016-05-18] MEDS: Metoprolol XL (24 HR) Succ 50 MG TAB.ER.24H PO SCH ×2 (10:24→19:50)
[2016-05-18] MEDS: Multivit/Ca/Min/Fe/FA 1 TAB TABLET PO SCH (10:24)
[2016-05-18] MEDS: Folic Acid 1 MG TABLET PO SCH (10:24)
[2016-05-18] MEDS: *HR* OxyCODONE Immed Rel 5 MG TABLET PO PRN (10:44)
--- NOTE | 2016-05-18 11:54 | Internal Med Progress Note ---
Date of Encounter: 05/18/16 Time of Encounter: 11:54 - Assessment and plan (1) Community acquired pneumonia Current Visit: Yes Status: Acute Assessment and plan: leukocytosis resoloved Respiratory status improved continue Duoneb q4h prn Clinically improving continue Levofloxacin (day 6/7), concern for aspiration (2) Acute renal failure due to tubular necrosis Current Visit: Yes Status: Suspected Assessment and plan: Kidney function improving Urine output increasing BP improved nephro eval appreciated continue to monitor (3) Atrial fibrillation Current Visit: Yes Status: Acute Assessment and plan: Rate better control Continue Cardizem 360mg PO closely monitor HR, goal HR<100 not a candidate for anticoagulation due to history of recurrent falls. Qualifiers: Atrial fibrillation type: chronic Qualified Code(s): I48.2 - Chronic atrial fibrillation (4) DVT prophylaxis Current Visit: Yes Status: Acute Assessment and plan: Lovenox SQ (5) Fracture of femoral neck Current Visit: Yes Status: Acute Assessment and plan: s/p right hip hemiarthroplasty- POD #6 Ortho eval appreciated PT/OT eval pain control Qualifiers: Encounter type: initial encounter Fracture type: closed Laterality: right Qualified Code(s): S72.001A - Fracture of unspecified part of neck of right femur, initial encounter for closed fracture (6) Hyperkalemia Current Visit: Yes Status: Resolved Assessment and plan: resolved continue to monitor electrolytes and replace as needed (7) Multiple falls Current Visit: Yes Status: Acute Assessment and plan: Will have PT/OT evals. maintain fall precautions - Subjective Interval history: Pt seen and examined. REsting in chair with present at bedside. Reports of feeling better. Denies SOB. No overnight issues reported. Discharge pending placement - Constitutional Vitals: Temp Pulse Resp BP Pulse Ox 98.3 F 93 18 109/69 95 05/18/16 11:07 05/18/16 11:07 05/18/16 11:07 05/18/16 11:07 05/18/16 11:07 General appearance: Present: A&O X 3, pleasant, no acute distress, obese, answers questions appropriately - Head Head exam: Present: atraumatic, normocephalic - Eye Eye exam: Present: normal appearance. Absent: scleral icterus - Respiratory Respiratory exam: Absent: respiratory distress, wheezes - Cardiovascular Cardiovascular exam: Present: RRR, +S1, +S2 - GI/Abdominal GI/Abdominal exam: Present: normal bowel sounds, soft. Absent: tenderness - Extremities Exam Extremities exam: Present: pedal edema, warm, radial pulses palpable and symetrical. Absent: calf tenderness - Neurological Exam Neurological exam: Present: alert, oriented X3, no focal deficits - Psychiatric Psychiatric exam: Present: normal affect, normal mood Internal Medicine: Result - Labs CBC & Chem 7: 05/17/16 06:18 05/17/16 06:18 - ABG Interpretation ABG results: PT/INR, D-dimer PT 12.4 Seconds (9.4-12.1) H 05/12/16 05:41 - VTE Documentation of Mechanical Device: Intermittent pneumatic compression device Consult Discharge Plan - Plan Referrals: Julieth Carias, PAC [Physician Lead Software Tester] - 05/27/16 2:15 pm Marisa Dobbs, LETTER OF CREDIT CLERK [Primary Care Provider] - Tanner Jaquez MD [Partnered Physician] - 05/29/16 1:30 pm
[2016-05-18 18:23] LABS: Basophils % 0.3 %; Eosinophils # 0.2 K/mcL (0.0-0.6); Eosinophils % 1.1 %; Hematocrit 30.5 % (37.5-50.1); Hemoglobin 9.4 g/dL (12.9-16.9); Lymphocytes # 0.7 K/mcL (0.6-4.6); Lymphocytes % 4.6 %; Mean Corpuscular HGB Conc 30.8 g/dL (31.6-35.5); Mean Corpuscular Hemoglobin 32.2 pg (28.0-33.3); Mean Corpuscular Volume 104.5 fL (83.0-100.0); Mean Platelet Volume 9.8 fL (9.4-12.4); Monocytes # 0.9 K/mcL (0.0-1.3); Neutrophils # 12.4 K/mcL (1.6-8.9); Nucleated Red Blood Cells 0.7 /100 WBC (0); Platelet Count 205 K/mcL (140-400); Red Blood Count 2.92 M/mcL (4.19-5.50); Red Cell Distribution Width 14.8 % (11.5-14.5)
[2016-05-18 18:36] LABS: Calcium 9.1 mg/dL (8.6-10.8); Magnesium 1.5 mg/dL (1.6-2.6); Phosphorous 2.3 mg/dL (2.3-4.7); Potassium 4.4 mEq/L (3.5-4.5)
[2016-05-18] MEDS: traZODone 50 MG TABLET PO SCH (19:50)
[2016-05-19] MEDS: Ipratropium/Albuterol Neb 3 ML IH SCH ×5 (04:27→20:54)
[2016-05-19 05:30] LABS: Basophils % 0.2 %; Eosinophils # 0.1 K/mcL (0.0-0.6); Hematocrit 27.8 % (37.5-50.1); Hemoglobin 8.6 g/dL (12.9-16.9); Immature Granulocytes % 2.6 % (0-4); Lymphocytes # 0.6 K/mcL (0.6-4.6); Lymphocytes % 4.7 %; Mean Corpuscular HGB Conc 30.9 g/dL (31.6-35.5); Mean Corpuscular Hemoglobin 32.2 pg (28.0-33.3); Mean Corpuscular Volume 104.1 fL (83.0-100.0); Mean Platelet Volume 10.1 fL (9.4-12.4); Monocytes # 0.8 K/mcL (0.0-1.3); Monocytes % 6.1 %; Neutrophils # 10.5 K/mcL (1.6-8.9); Nucleated Red Blood Cells 0.6 /100 WBC (0); Platelet Count 201 K/mcL (140-400); Red Blood Count 2.67 M/mcL (4.19-5.50); Red Cell Distribution Width 15.2 % (11.5-14.5); Segmented Neutrophils % 85.4 %
[2016-05-19 05:41] LABS: BUN/Creatinine Ratio 23 (6-26); Blood Urea Nitrogen 32 mg/dL (8-26); Calcium 9.1 mg/dL (8.6-10.8); Carbon Dioxide 23 mEq/L (19-29); Chloride 108 mEq/L (98-109); Glucose 118 mg/dL (70-99); Magnesium 1.9 mg/dL (1.6-2.6); Osmolality,Calculated 298 (280-300); Potassium 4.7 mEq/L (3.5-4.5); Sodium 140 mEq/L (136-145); eGFR For African Americans > 60 (> 60); eGFR For Non-African Americans 50 (> 60)
[2016-05-19] MEDS: *HR* Enoxaparin 30 MG/0.3 ML SYRINGE SQ SCH ×2 (06:28→16:33)
[2016-05-19] MEDS: Megestrol Acetate 400 MG/10 ML UDC PO SCH ×2 (09:27→20:35)
[2016-05-19] MEDS: Ascorbic Acid 500 MG TABLET PO SCH ×2 (09:28→16:31)
[2016-05-19] MEDS: Multivit/Ca/Min/Fe/FA 1 TAB TABLET PO SCH (09:28)
[2016-05-19] MEDS: Metoprolol XL (24 HR) Succ 50 MG TAB.ER.24H PO SCH ×2 (09:28→20:35)
[2016-05-19] MEDS: Pantoprazole 40 MG VIAL IVP SCH (09:28)
[2016-05-19] MEDS: Diltiazem CD (24hr) 180 MG CAPSULE PO SCH (09:28)
[2016-05-19] MEDS: Furosemide 40 MG TABLET PO SCH ×2 (09:29→16:31)
[2016-05-19] MEDS: Famotidine 20 MG TABLET PO SCH (09:29)
[2016-05-19] MEDS: Folic Acid 1 MG TABLET PO SCH (09:30)
[2016-05-19] MEDS: Calcium Acetate 667 MG CAPSULE PO SCH ×3 (09:30→16:31)
[2016-05-19] MEDS: Levofloxacin 500 MG/100 ML 500 MG/100 ML BAG IVPB SCH (09:30)
--- NOTE | 2016-05-19 12:04 | Internal Med Progress Note ---
Date of Encounter: 05/19/16 Time of Encounter: 10:30 - Assessment and plan (1) Community acquired pneumonia Current Visit: Yes Status: Acute Assessment and plan: leukocytosis worsened Will add Vancomycin to the regimen and continue Levaquin at this time continue duoneb prn monitor O2 sat O2 supplementation as needed (2) Acute renal failure due to tubular necrosis Current Visit: Yes Status: Suspected Assessment and plan: Kidney function improving Urine output increasing BP improved nephro eval appreciated continue to monitor (3) Atrial fibrillation Current Visit: Yes Status: Acute Assessment and plan: Rate better control Continue Cardizem 360mg PO closely monitor HR, goal HR<100 not a candidate for anticoagulation due to history of recurrent falls. Qualifiers: Atrial fibrillation type: chronic Qualified Code(s): I48.2 - Chronic atrial fibrillation (4) DVT prophylaxis Current Visit: Yes Status: Acute Assessment and plan: Lovenox SQ (5) Fracture of femoral neck Current Visit: Yes Status: Acute Assessment and plan: s/p right hip hemiarthroplasty- POD #7 Ortho eval appreciated PT/OT eval pain control Qualifiers: Encounter type: initial encounter Fracture type: closed Laterality: right Qualified Code(s): S72.001A - Fracture of unspecified part of neck of right femur, initial encounter for closed fracture (6) Hyperkalemia Current Visit: Yes Status: Resolved Assessment and plan: Mild hyperkalemia noted will closely monitor (7) Multiple falls Current Visit: Yes Status: Acute Assessment and plan: Will have PT/OT evals. maintain fall precautions - Subjective Interval history: Pt seen and examined. Reported of mild shortness of breath this morning. No other complains at this time No overnight events reported. D/c pending placement - Constitutional Vitals: Temp Pulse Resp BP Pulse Ox 97.7 F 66 14 112/78 96 05/19/16 11:23 05/19/16 11:23 05/19/16 11:23 05/19/16 11:23 05/19/16 11:23 General appearance: Present: A&O X 3, pleasant, no acute distress, obese, answers questions appropriately - Head Head exam: Present: atraumatic, normocephalic - Eye Eye exam: Present: conjuntiva pink, sclera anicteric - Respiratory Respiratory exam: Present: wheezes (bilateral expiratory wheezing). Absent: respiratory distress - Cardiovascular Cardiovascular exam: Present: irregular rhythm, +S1, +S2 - GI/Abdominal GI/Abdominal exam: Present: normal bowel sounds, soft. Absent: tenderness - Extremities Exam Extremities exam: Present: pedal edema, warm, radial pulses palpable and symetrical. Absent: calf tenderness - Neurological Exam Neurological exam: Present: alert, oriented X3 - Psychiatric Psychiatric exam: Present: normal affect, normal mood Internal Medicine: Result - Labs CBC & Chem 7: 05/19/16 04:52 05/19/16 04:52 Labs: Short CBC 05/18/16 05/19/16 Range/Units 18:11 04:52 WBC 14.5 H 12.3 H (4.3-11.1) K/mcL Hgb 9.4 L 8.6 L (12.9-16.9) g/dL Hct 30.5 L 27.8 L (37.5-50.1) % Plt Count 205 201 (140-400) K/mcL Neutrophils # 12.4 H 10.5 H (1.6-8.9) K/mcL BMP 05/18/16 05/19/16 18:11 04:52 Sodium 140 140 Potassium 4.4 4.7 H Chloride 108 108 Carbon Dioxide 24 23 BUN 35 H D 32 H Creatinine 1.44 H 1.37 H Glucose 144 H 118 H Calcium 9.1 9.1 - ABG Interpretation ABG results: PT/INR, D-dimer PT 12.4 Seconds (9.4-12.1) H 05/12/16 05:41 - VTE Documentation of Mechanical Device: Intermittent pneumatic compression device Consult Discharge Plan - Plan Referrals: Julieth Carias, DM [Physician Shop Director] - 05/27/16 2:15 pm Marisa Dobbs, TRAINING COORDINATOR [Primary Care Provider] - Tanner Jaquez MD [Partnered Physician] - 05/29/16 1:30 pm
[2016-05-19] MEDS: Vancomycin 1,500 MG in D5% in Water 250 ML IVPB SCH (14:29)
[2016-05-19] MEDS: traZODone 50 MG TABLET PO SCH (20:35)
[2016-05-19] MEDS: Melatonin 3 MG TABLET PO PRN (23:10)
[2016-05-20] MEDS: Ipratropium/Albuterol Neb 3 ML IH SCH ×6 (00:04→19:45)
[2016-05-20] MEDS: *HR* Enoxaparin 30 MG/0.3 ML SYRINGE SQ SCH (06:28)
--- NOTE | 2016-05-20 06:39 | Orthopedics Progress Note ---
Date of Encounter: 05/20/16 Time of Encounter: 06:37 Subjective Principal diagnosis: POD#2 S/P right hip hemiarthroplasty Interval history: ASKED To see patient for drainage status post right hip hemiarthroplasty for fracture. Patient has swelling right lower extremity serous drainage nor erythema no sign of infection. Recommend holding anticoagulation will obtain Doppler right lower extremity. Objective Vital signs: Vital Signs Temp Pulse Resp BP Pulse Ox 05/20/16 04:35 16 96 05/20/16 04:00 98.4 F 94 18 98/66 97 05/20/16 00:12 98.0 F 99 18 102/63 99 05/19/16 20:54 16 98 05/19/16 19:43 98.1 F 99 16 116/74 97 05/19/16 16:23 24 97 05/19/16 15:00 97.5 F L 92 14 100/67 05/19/16 11:23 97.7 F 66 14 112/78 96 05/19/16 11:08 98.7 F 102 16 113/69 97 05/19/16 10:00 18 96 05/19/16 06:58 98.1 F 87 16 128/76 98 Intake and Output 05/19/16 05/19/16 05/20/16 15:59 23:59 07:59 Intake Total 340 / 340 Output Total 400 / 400 375 / 375 100 / 100 Balance -400 / -400 -35 / -35 -100 / -100 Intake: Oral 340 / 340 Output: Urine 400 / 400 375 / 375 100 / 100 Other: Percent of Meal Consumed 10% # Urine Diapers 1 - Labs CBC & BMP: 05/19/16 04:52 05/19/16 04:52 Labs: Abnormal lab results WBC 12.3 K/mcL (4.3-11.1) H 05/19/16 04:52 RBC 2.67 M/mcL (4.19-5.50) L 05/19/16 04:52 Hgb 8.6 g/dL (12.9-16.9) L 05/19/16 04:52 Hct 27.8 % (37.5-50.1) L 05/19/16 04:52 MCV 104.1 fL (83.0-100.0) H 05/19/16 04:52 MCHC 30.9 g/dL (31.6-35.5) L 05/19/16 04:52 RDW 15.2 % (11.5-14.5) H 05/19/16 04:52 Band Neutrophils % 34.0 % (0-4) H 05/16/16 04:58 Neutrophils # 10.5 K/mcL (1.6-8.9) H 05/19/16 04:52 Nucleated RBCs/100 WBC 0.6 /100 WBC (0) H 05/19/16 04:52 Reactive Lymphocytes Present (Not Present) A 05/13/16 05:54 Large Platelets Present (Not Present) A 05/13/16 05:54 Polychromasia 1+ (Not Present) A 05/13/16 05:54 Hypochromasia Present (Not Present) A 05/17/16 06:18 Basophilic Stippling 1+ (Not Present) A 05/13/16 05:54 Microcytosis Present (Not Present) A 05/12/16 05:41 Rouleaux Present (Not Present) A 05/17/16 06:18 PT 12.4 Seconds (9.4-12.1) H 05/12/16 05:41 Potassium 4.7 mEq/L (3.5-4.5) H 05/19/16 04:52 BUN 32 mg/dL (8-26) H 05/19/16 04:52 Creatinine 1.37 mg/dL (0.72-1.25) H 05/19/16 04:52 Est GFR (Non-Af Amer) 50 (> 60) L 05/19/16 04:52 Glucose 118 mg/dL (70-99) H 05/19/16 04:52 POC Glucose 122 (58-89) H 05/14/16 07:37 Uric Acid 7.5 mg/dL (3.5-7.2) H 05/11/16 14:59 Ionized Calcium 1.09 mmol/L (1.15-1.35) L 05/12/16 05:41 Iron 19 mcg/dL (65-175) L 05/13/16 05:54 % Saturation 8 % (20-55) L 05/13/16 05:54 Transferrin 172 mg/dL (174-364) L 05/13/16 05:54 Alkaline Phosphatase 130 Units/L (38-126) H 05/12/16 05:41 B-Natriuretic Peptide 313 pg/mL (0-100) H 05/11/16 11:32 Albumin 2.3 g/dL (3.5-5.0) L 05/13/16 05:54 Albumin/Globulin Ratio 0.8 (1.1-2.2) L 05/12/16 05:41 Prealbumin 11.0 mg/dL (18.0-45.0) L 05/13/16 04:56 Vitamin B12 154 pg/mL (213-816) L 05/13/16 04:56 25-OH Vitamin D Total 28 ng/mL (30-80) L 05/13/16 04:56 PTH Intact 464.2 pg/ml (8.5-72.5) H 05/13/16 05:54 Urine Bilirubin Moderate (Negative) H 05/11/16 13:20 Ur Leukocyte Esterase Trace (Negative) H 05/11/16 13:20 Urine Microscopic RBC 3-5 per hpf (0-3) H 05/11/16 13:20 Ur Squamous Epith Cells Many per lpf (None-Few) H 05/11/16 13:20 Ur Culture Indicated? YES (NO) A 05/11/16 13:20 Ur Total Protein 24 Hr 370 mg/day (0-299) H 05/14/16 04:18 Protein/Creatinin Ratio 0.26 mg/mg (0-0.20) H 05/14/16 04:18 Ur Urea Nitrogen 24 Hr 9.7 g/day (12.0-20.0) L 05/14/16 04:18 Urine Total Protein 27 mg/dL (1-14) H 05/14/16 04:18 - VTE Documentation of Mechanical Device: Intermittent pneumatic compression device Consult Discharge Plan - Plan Referrals: Julieth Carias PAC [Physician Cafeteria Director] - 05/27/16 2:15 pm Marisa Dobbs CNP [Primary Care Provider] - Tanner Jaquez MD [Partnered Physician] - 05/29/16 1:30 pm
[2016-05-20] MEDS ORDERED: Aminoglycoside Consult 1 EACH MC ONE (09:39)
[2016-05-20] MEDS: Vancomycin 1,500 MG in D5% in Water 250 ML IVPB SCH (10:53)
[2016-05-20] MEDS: Furosemide 40 MG TABLET PO SCH ×2 (10:55→17:08)
[2016-05-20] MEDS: Calcium Acetate 667 MG CAPSULE PO SCH ×3 (10:55→17:08)
[2016-05-20] MEDS: Ascorbic Acid 500 MG TABLET PO SCH ×2 (10:55→17:08)
[2016-05-20] MEDS: Folic Acid 1 MG TABLET PO SCH (10:55)
[2016-05-20] MEDS: Famotidine 20 MG TABLET PO SCH (10:55)
[2016-05-20] MEDS: Megestrol Acetate 400 MG/10 ML UDC PO SCH ×2 (10:55→20:16)
[2016-05-20] MEDS: Multivit/Ca/Min/Fe/FA 1 TAB TABLET PO SCH (10:55)
[2016-05-20] MEDS: Pantoprazole 40 MG VIAL IVP SCH (10:56)
[2016-05-20] MEDS: Diltiazem CD (24hr) 180 MG CAPSULE PO SCH (10:56)
[2016-05-20 11:13] LABS: Basophils % 0.1 %; Eosinophils # 0.1 K/mcL (0.0-0.6); Eosinophils % 0.7 %; Hematocrit 28.6 % (37.5-50.1); Hemoglobin 8.8 g/dL (12.9-16.9); Immature Granulocytes % 2.1 % (0-4); Lymphocytes # 0.8 K/mcL (0.6-4.6); Mean Corpuscular HGB Conc 30.8 g/dL (31.6-35.5); Mean Platelet Volume 9.3 fL (9.4-12.4); Monocytes # 0.9 K/mcL (0.0-1.3); Nucleated Red Blood Cells 0.3 /100 WBC (0); Platelet Count 236 K/mcL (140-400); Red Blood Count 2.75 M/mcL (4.19-5.50); Red Cell Distribution Width 15.4 % (11.5-14.5); Segmented Neutrophils % 86.1 %
[2016-05-20 11:25] LABS: Calcium 8.9 mg/dL (8.6-10.8); Magnesium 1.6 mg/dL (1.6-2.6); Phosphorous 2.7 mg/dL (2.3-4.7); Potassium 4.2 mEq/L (3.5-4.5)
[2016-05-20] MEDS: Metoprolol XL (24 HR) Succ 50 MG TAB.ER.24H PO SCH ×2 (12:29→20:17)
[2016-05-20] MEDS: Levofloxacin 500 MG/100 ML 500 MG/100 ML BAG IVPB SCH (12:30)
--- NOTE | 2016-05-20 15:06 | Venous Imaging Report ---
LE Venous Duplex Patient Name:Justo Leon Order Number:[id number] Procedure Date:05/20/2016 Date:8Age:80 yrs Gender:Male Location:[facility] Room #: 3NE29 Ferry Engineer:Italia Wheeler, RVT, RDCS Referring MD:Jose Miramontes MD linoleum printer:Marisa Dobbs, OPEN HEARTH HELPER Reading MD:Rory Ramirez MD , FACS Primary Indications:Swelling Secondary Indications: Risk Factors Yes/No Hx of DVT No Impressions: Right lower extremity: normal superficial and deep exam. Left lower extremity: normal contralateral exam. Findings Venous Duplex Results: Right: Venous imaging of the lower extremity reveals full patency and normal vessel compressibility of the right distal iliac, right common femoral, right superficial femoral, right popliteal, right posterior tibial, right peroneal, right great saphenous and right lesser saphenous. Doppler signals in the evaluated veins were normal. Interstitial fluid noted throughout Right Calf. Left: Venous imaging of the lower extremity reveals full patency and normal vessel compressibility of the left common femoral. Doppler signals in the evaluated veins were normal. Lower Extremity Venous Duplex Side Vein Compress Spontaneous Flow Augment Diameter (cm) Depth (cm) Right Distal Iliac Normal Yes Phasic Yes Right Common Femoral Normal Yes Phasic Yes Right Superficial Femoral Normal Yes Phasic Yes Right Popliteal Normal Yes Phasic Yes Right Posterior Tibial Normal Yes Phasic Yes Right Peroneal Normal Yes Phasic Yes Right Great Saphenous Normal Yes Phasic Yes Right Lesser Saphenous Normal Yes Phasic Yes Left Common Femoral Normal Yes Phasic Yes Updated by Rory Ramirez MD, FACS on 05/20/2016 3:01:43 PM Rory Ramirez MD electronically signed on 05/20/2016 3:02:12 PM with status of Final
--- NOTE | 2016-05-20 17:18 | Internal Med Progress Note ---
Date of Encounter: 05/20/16 Time of Encounter: 12:45 - Assessment and plan (1) Pneumonia Current Visit: Yes Status: Acute Assessment and plan: leukocytosis worsened concern for aspiration due to which therapy was broadened continue Vancomycin and Levaquin at this time Pharmacy to dose Vanco as per renal function monitor Vanco trough continue duoneb prn monitor O2 sat O2 supplementation as needed Qualifiers: Pneumonia type: due to unspecified organism Laterality: right Lung location: unspecified part of lung Qualified Code(s): J18.9 - Pneumonia, unspecified organism (2) Acute renal failure due to tubular necrosis Current Visit: Yes Status: Suspected Assessment and plan: Kidney function stabilized Urine output increasing BP improved nephro eval appreciated Restarted Lasix due to worsening edema continue to monitor (3) Atrial fibrillation Current Visit: Yes Status: Acute Assessment and plan: Rate better control Continue Cardizem 360mg PO closely monitor HR, goal HR<100 not a candidate for anticoagulation due to history of recurrent falls. Qualifiers: Atrial fibrillation type: chronic Qualified Code(s): I48.2 - Chronic atrial fibrillation (4) DVT prophylaxis Current Visit: Yes Status: Acute Assessment and plan: Lovenox SQ (5) Fracture of femoral neck Current Visit: Yes Status: Acute Assessment and plan: s/p right hip hemiarthroplasty- POD #8 Ortho eval appreciated PT/OT eval pain control Qualifiers: Encounter type: initial encounter Fracture type: closed Laterality: right Qualified Code(s): S72.001A - Fracture of unspecified part of neck of right femur, initial encounter for closed fracture (6) Hyperkalemia Current Visit: Yes Status: Resolved (7) Multiple falls Current Visit: Yes Status: Acute Assessment and plan: Will have PT/OT evals. maintain fall precautions (8) Pulmonary hypertension Current Visit: Yes Status: Chronic Assessment and plan: 2D echo noted for severe pulmonary hypertension with LVEF 50-55%, severe dilated right atrium - Subjective Interval history: Pt seen and examined with present at bedside. Reported of having significant serous sanguinous discharge from the right hip surgical site with worsening RLE edema. Venous doppler negative for DVT but positive for interstitial fluid-orthopedic following. Restarted Lasix yesterday due to worsening bilateral pedal edema. Respiratory status improved. Saturating well on nasal cannula. tradeshow worker aware-discharge pending placement - Constitutional Vitals: Temp Pulse Resp BP Pulse Ox 98.3 F 98 18 119/55 97 05/20/16 15:33 05/20/16 15:33 05/20/16 15:39 05/20/16 15:33 05/20/16 15:39 General appearance: Present: A&O X 3, pleasant, no acute distress, obese, answers questions appropriately - Head Head exam: Present: atraumatic, normocephalic - Eye Eye exam: Present: normal appearance. Absent: scleral icterus - Respiratory Respiratory exam: Present: wheezes (bilateral expiratory wheezing). Absent: respiratory distress - Cardiovascular Cardiovascular exam: Present: irregular rhythm, +S1, +S2 - GI/Abdominal GI/Abdominal exam: Present: normal bowel sounds, soft. Absent: tenderness - Extremities Exam Extremities exam: Present: pedal edema (bilateral 2+pitting edema), warm, radial pulses palpable and symetrical. Absent: calf tenderness - Neurological Exam Neurological exam: Present: alert, oriented X3 - Psychiatric Psychiatric exam: Present: normal affect, normal mood Internal Medicine: Result - Labs CBC & Chem 7: 05/20/16 11:02 05/20/16 11:02 Labs: Short CBC 05/20/16 Range/Units 11:02 WBC 15.1 H (4.3-11.1) K/mcL Hgb 8.8 L (12.9-16.9) g/dL Hct 28.6 L (37.5-50.1) % Plt Count 236 (140-400) K/mcL Neutrophils # 13.0 H (1.6-8.9) K/mcL BMP 05/20/16 11:02 Sodium 138 Potassium 4.2 Chloride 106 Carbon Dioxide 23 BUN 31 H Creatinine 1.44 H Glucose 124 H Calcium 8.9 - ABG Interpretation ABG results: PT/INR, D-dimer PT 12.4 Seconds (9.4-12.1) H 05/12/16 05:41 - VTE Documentation of Mechanical Device: Intermittent pneumatic compression device Consult Discharge Plan - Plan Referrals: Julieth Carias, PAC [Physician Airborne Missions Systems] - 05/27/16 2:15 pm Marisa Dobbs, DIAMOND EXPERT [Primary Care Provider] - Tanner Jaquez MD [Partnered Physician] - 05/29/16 1:30 pm
[2016-05-20] MEDS: traZODone 50 MG TABLET PO SCH (20:16)
[2016-05-20] MEDS: Melatonin 3 MG TABLET PO PRN (21:50)
[2016-05-21] MEDS: Ipratropium/Albuterol Neb 3 ML IH SCH ×3 (00:19→07:51)
[2016-05-21 05:46] LABS: Basophils % 0.1 %; Eosinophils # 0.1 K/mcL (0.0-0.6); Hematocrit 26.9 % (37.5-50.1); Hemoglobin 8.2 g/dL (12.9-16.9); Immature Granulocytes % 1.5 % (0-4); Lymphocytes # 0.7 K/mcL (0.6-4.6); Lymphocytes % 5.3 %; Mean Corpuscular HGB Conc 30.5 g/dL (31.6-35.5); Mean Corpuscular Hemoglobin 31.7 pg (28.0-33.3); Mean Corpuscular Volume 103.9 fL (83.0-100.0); Mean Platelet Volume 10.1 fL (9.4-12.4); Monocytes # 0.8 K/mcL (0.0-1.3); Neutrophils # 10.8 K/mcL (1.6-8.9); Nucleated Red Blood Cells 0.2 /100 WBC (0); Platelet Count 239 K/mcL (140-400); Red Blood Count 2.59 M/mcL (4.19-5.50); Red Cell Distribution Width 15.2 % (11.5-14.5); Segmented Neutrophils % 86.1 %
[2016-05-21 05:54] LABS: Calcium 8.7 mg/dL (8.6-10.8); Magnesium 1.4 mg/dL (1.6-2.6); Phosphorous 3.3 mg/dL (2.3-4.7); Potassium 4.2 mEq/L (3.5-4.5)
[2016-05-21] MEDS ORDERED: Furosemide 40 MG/4 ML VIAL IVP ONE (09:08)
--- NOTE | 2016-05-21 09:16 | Internal Med Progress Note ---
Date of Encounter: 05/21/16 Time of Encounter: 09:16 - Assessment and plan (1) Fracture of femoral neck Current Visit: Yes Status: Acute Assessment and plan: s/p right hip hemiarthroplasty Orthopedics was recorded yesterday due to some discharge from the incision site. Antegrade lesion was discontinued and Dopplers were ordered. Dopplers negative for DVT. They did show interstitial edema likely due to fluid overload. PT/OT recommend discharge to inpatient rehabilitation. Awaiting bed availability for the same. pain control Patient is high risk due to risk of falls and need for placement to rehabilitation. Qualifiers: Encounter type: initial encounter Fracture type: closed Laterality: right Qualified Code(s): S72.001A - Fracture of unspecified part of neck of right femur, initial encounter for closed fracture (2) CKD (chronic kidney disease) stage 3, GFR 30-59 ml/min Current Visit: Yes Status: Chronic Assessment and plan: Patient follows up with nephrology as an outpatient. Creatinine is back to baseline. Appreciate nephrology input. Treatment of hyperparathyroidism. Avoid nephrotoxic agents and hypotension. (3) CHAVO (acute kidney injury) Current Visit: Yes Status: Resolved Assessment and plan: Renal function back to baseline. Acute kidney injury resolved. (4) Atrial fibrillation Current Visit: Yes Status: Chronic Assessment and plan: Rate controlled with Cardizem and Toprol-XL. Continue the same Patient was on anticoagulation in the past but he developed an intracranial bleed and hence, anticoagulation was discontinued. Qualifiers: Atrial fibrillation type: chronic Qualified Code(s): I48.2 - Chronic atrial fibrillation (5) Hyperparathyroidism Current Visit: Yes Status: Chronic Assessment and plan: Treatment of vitamin D deficiency. Appreciate nephrology input. Outpatient follow-up with nephrology. (6) Pulmonary hypertension Current Visit: Yes Status: Chronic Assessment and plan: 2D echo noted for severe pulmonary hypertension with LVEF 50-55%, severe dilated right atrium Unknown etiology of pulmonary hypertension. She has a history of working with horses. CT scan revealed interstitial changes in the right lower lung. Patient has a history of right lower lobectomy when he was 11 years of age. Wonder if the patient has cor pulmonale. Patient reports improvement in his breathing with duo nebs. Will request pulmonary consult to evaluate the patient. Start Symbicort for symptomatic relief. Will assess as the patient will require oxygen on discharge. (7) Gout Current Visit: Yes Status: Acute Assessment and plan: His gout flare has resolved. Patient has renal dysfunction (chronic kidney disease) and will likely require chronic therapy for gout. However, due to his current acute illness, we will hold off on starting him on allopurinol. It needs to be addressed as an outpatient. Qualifiers: Gout site: unspecified site Gout etiology: unspecified cause Chronicity: acute Qualified Code(s): M10.9 - Gout, unspecified - Subjective Interval history: Patient states that he feels well. He denies any pain in his legs. [place]. He works around horses with hay and manure. He reports that the breathing treatments have been very helpful for his shortness of breath. He denies using oxygen at home. He has never seen a advertising account manager. He denies cough, wheezing or fever or chills. He reports swelling in his legs chronically for which he uses Lasix. However, he states that the swelling in his legs as well as during the current hospitalization stay. He denies any nausea or vomiting. He is eager to be discharged from the hospital. - Constitutional Vitals: Temp Pulse Resp BP Pulse Ox 98.8 F 117 14 106/71 98 05/21/16 08:45 05/21/16 08:45 05/21/16 08:45 05/21/16 08:45 05/21/16 08:45 General appearance: Present: A&O X 3, pleasant, no acute distress, obese, answers questions appropriately Exam: Gen: Sitting in a chair. No acute distress. Chest: Clear to auscultation bilaterally. No adventitious sounds present. CVS: First and second heart sounds present. No murmurs, rubs or gallops. 2+ bilateral pitting pedal edema Abdomen: Soft, nontender, nondistended. Bowel sounds present. No hepatosplenomegaly. Internal Medicine: Result - Labs CBC & Chem 7: 05/21/16 05:23 05/21/16 05:23 Labs: Short CBC 05/20/16 05/21/16 Range/Units 11:02 05:23 WBC 15.1 H 12.6 H (4.3-11.1) K/mcL Hgb 8.8 L 8.2 L (12.9-16.9) g/dL Hct 28.6 L 26.9 L (37.5-50.1) % Plt Count 236 239 (140-400) K/mcL Neutrophils # 13.0 H 10.8 H (1.6-8.9) K/mcL BMP 05/20/16 05/21/16 11:02 05:23 Sodium 138 137 Potassium 4.2 4.2 Chloride 106 104 Carbon Dioxide 23 26 BUN 31 H 28 H Creatinine 1.44 H 1.41 H Glucose 124 H 110 H Calcium 8.9 8.7 - ABG Interpretation ABG results: PT/INR, D-dimer PT 12.4 Seconds (9.4-12.1) H 05/12/16 05:41 - VTE Documentation of Mechanical Device: Intermittent pneumatic compression device Consult Discharge Plan - Plan Referrals: Julieth Carias, PAC [Physician Canine Enforcement Officer] - 05/27/16 2:15 pm Marisa Dobbs, PERSONAL LINES INSURANCE ADVISOR [Primary Care Provider] - Tanner Jaquez MD [Partnered Physician] - 05/29/16 1:30 pm
[2016-05-21] MEDS ORDERED: Ipratropium/Albuterol Neb 3 ML IH PRN (09:29)
[2016-05-21] MEDS: Megestrol Acetate 400 MG/10 ML UDC PO SCH ×2 (09:30→20:00)
[2016-05-21] MEDS: Ascorbic Acid 500 MG TABLET PO SCH ×2 (09:31→17:31)
[2016-05-21] MEDS: Metoprolol XL (24 HR) Succ 50 MG TAB.ER.24H PO SCH ×2 (09:31→19:59)
[2016-05-21] MEDS: Folic Acid 1 MG TABLET PO SCH (09:31)
[2016-05-21] MEDS: Magnesium Oxide 400 MG TABLET PO SCH ×3 (09:31→20:00)
[2016-05-21] MEDS: Diltiazem CD (24hr) 180 MG CAPSULE PO SCH (09:31)
[2016-05-21] MEDS: Calcium Acetate 667 MG CAPSULE PO SCH ×3 (09:31→17:31)
[2016-05-21] MEDS: Multivit/Ca/Min/Fe/FA 1 TAB TABLET PO SCH (09:31)
[2016-05-21] MEDS: Budesonide/Formoterol 160/4.5 MDI IH SCH ×2 (12:56→22:02)
--- NOTE | 2016-05-21 15:50 | Pulmonology Consult Note ---
Date of Encounter: 05/21/16 Time of Encounter: 15:42 Assessment and Plan (1) Pulmonary hypertension Current Visit: Yes Status: Chronic He has a history of primary venous hypertension and I suspect this is all going to end up being Group 2 (post capillary) disease owing to elevated left heart pressures. Based upon this echocardiogram I am concerned though that the degree of right ventricular dilation is out of proportion to the left heart disease that was noted (keepiing PAH in the differential) At this point I would repeat his echocardiogram given that the windows obtained at that time were not very good would also complete the study with a bubble study. He does have evidence of fairly advanced emphysema of both lungs but no real chronic fibrotic changes he does have right lower lobe changes that are likely related to former postsurgical scar. I am not convinced that degree of hypoxia from underlying emphysema would be sufficient to cause this degree of right ventricular dysfunction but again repeating the echocardiogram would be helpful at determining the severity of this. Further workup and/or invasive testing would be based upon results of echocardiogram and interim I would continue to diurese patient (2) Hypoxia Current Visit: Yes Status: Acute Likely multifactorial including pulmonary venous congestion and emphysema continue supplemental oxygen weaned to keep oxygen saturations greater than 88% to 92% (3) Emphysema lung Current Visit: Yes Status: Acute Continue bronchodilators every 4-6 hours as needed not appear to have acute exacerbation Qualifiers: Emphysema type: centrilobular Qualified Code(s): J43.2 - Centrilobular emphysema History of Present Illness Consult date: 05/21/16 Requesting physician: Dony Hopkins Reason for consult: pulmonary hypertension Chief complaint: LE edema History of present illness: Mr. Leon is a very pleasant 80-year-old gentleman with a history of CHF atrial fibrillation who recently sustained a fall and had a right hip fracture status post repair which was the reason that he was admitted to the hospital. He had a prolonged hospitalization complicated by delirium and concern for infection. The pulmonary did division was consulted for evaluation of potential pulmonary hypertension. As a part of workup for pre-operative clearance from cardiology and echocardiogram was obtained which was notable for a preserved ejection fraction but a severely dilated right ventricle and right atrium and notable for severe pulmonary hypertension based upon the RVSP. The patient himself has a long smoking history about a pack a day for 30 years but quit about 30 years ago. 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 He did undergo a right lower lobectomy as a child and this was in 1947 apparently related to an infection at that time. He has not needed any supplement oxygen at home leading up into this point he has required 2-3 L of oxygen while he has been in patient he does carry a diagnosis of congestive heart failure requiring doses of Lasix per and patient. No history of sleep apnea and he denies loud snoring or any sort of daytime hypersomnolence or frequent napping Main complaint has been progressive lower extremity swelling which has been present for quite a while but has been worse over the last few months and worse during this hospitalization Past Med Surg Social Fam HX - Past Medical History Medical history: arthritis, asthma, atrial fibrillation, cancer, CVA, hypertension - Past Surgical History Surgical History: other (Cholecystectomy, back surgery, brachytherapy for prostate cancer, skin biopsy, left total hip) - Social History Smoking Status: Former smoker Smokeless Tobacco Status: No Alcohol use: none Drug use: none Medications and Allergies Allopurinol [Zyloprim] 100 mg PO DAILY 05/11/16 [History] Calcitriol [Rocaltrol] 0.25 mcg PO DAILY 05/11/16 [History] Diltiazem HCl [Cartia Xt] 240 mg PO DAILY 05/11/16 [History] Diphenhydramine HCl [Nighttime Sleep Aid] 100 mg PO HS 05/11/16 [History] Famotidine [Acid Construction Project Administrator] 10 mg PO DAILY 05/11/16 [History] Folic Acid 1,200 mcg PO DAILY 05/11/16 [History] Furosemide [Furosemide] 40 mg PO BID 05/11/16 [History] HYDROcodone/Acet 5/325 mg [[place] 5-325 mg] 1 tab PO QID PRN 05/11/16 [History] Megestrol Acetate [Megace] 400 mg PO BID 05/11/16 [History] Metoprolol Succinate [Toprol Xl] 100 mg PO BID 05/11/16 [History] Tamsulosin [Flomax] 0.4 mg PO DAILY 05/11/16 [History] TraZODone 50 mg PO HS 05/11/16 [History] Allergies No Known Allergies Allergy (Verified 05/06/16 12:16) All Systems: A 10-system review of systems was performed and is negative for pertinent findings except as documented above in the HPI. Physical Examination Vital Signs: Vital Signs, Last 4 Hours Temp Pulse Resp BP Pulse Ox 05/21/16 14:56 98.1 F 83 20 111/58 98 General appearance: no acute distress Eyes: nonicteric Neck: supple Effort: normal Inspection: other (Right surgical scar noted on thorax ) Auscultation: right: diminished breath sounds, bilateral: rales Cardiovascular: irregular rhythm Gastrointestinal: normoactive bowel sounds Extremities: edema (2+ pitting edema bilaterally) Musculoskeletal: joint tenderness (Right hip) normal mental status, non-focal exam mood appropriate Results - Laboratory Findings CBC and BMP: 05/21/16 05:23 05/21/16 05:23 PT/INR, D-dimer PT 12.4 Seconds (9.4-12.1) H 05/12/16 05:41 Abnormal lab findings: Abnormal lab results WBC 12.6 K/mcL (4.3-11.1) H 05/21/16 05:23 RBC 2.59 M/mcL (4.19-5.50) L 05/21/16 05:23 Hgb 8.2 g/dL (12.9-16.9) L 05/21/16 05:23 Hct 26.9 % (37.5-50.1) L 05/21/16 05:23 MCV 103.9 fL (83.0-100.0) H 05/21/16 05:23 MCHC 30.5 g/dL (31.6-35.5) L 05/21/16 05:23 RDW 15.2 % (11.5-14.5) H 05/21/16 05:23 Band Neutrophils % 34.0 % (0-4) H 05/16/16 04:58 Neutrophils # 10.8 K/mcL (1.6-8.9) H 05/21/16 05:23 Nucleated RBCs/100 WBC 0.2 /100 WBC (0) H 05/21/16 05:23 Reactive Lymphocytes Present (Not Present) A 05/13/16 05:54 Large Platelets Present (Not Present) A 05/13/16 05:54 Polychromasia 1+ (Not Present) A 05/13/16 05:54 Hypochromasia Present (Not Present) A 05/17/16 06:18 Basophilic Stippling 1+ (Not Present) A 05/13/16 05:54 Microcytosis Present (Not Present) A 05/12/16 05:41 Rouleaux Present (Not Present) A 05/17/16 06:18 PT 12.4 Seconds (9.4-12.1) H 05/12/16 05:41 BUN 28 mg/dL (8-26) H 05/21/16 05:23 Creatinine 1.41 mg/dL (0.72-1.25) H 05/21/16 05:23 Est GFR ( Amer) 59 (> 60) L 05/21/16 05:23 Est GFR (Non-Af Amer) 49 (> 60) L 05/21/16 05:23 Glucose 110 mg/dL (70-99) H 05/21/16 05:23 POC Glucose 122 (58-89) H 05/14/16 07:37 Uric Acid 7.5 mg/dL (3.5-7.2) H 05/11/16 14:59 Ionized Calcium 1.09 mmol/L (1.15-1.35) L 05/12/16 05:41 Magnesium 1.4 mg/dL (1.6-2.6) L 05/21/16 05:23 Iron 19 mcg/dL (65-175) L 05/13/16 05:54 % Saturation 8 % (20-55) L 05/13/16 05:54 Transferrin 172 mg/dL (174-364) L 05/13/16 05:54 Alkaline Phosphatase 130 Units/L (38-126) H 05/12/16 05:41 B-Natriuretic Peptide 313 pg/mL (0-100) H 05/11/16 11:32 Albumin 2.3 g/dL (3.5-5.0) L 05/13/16 05:54 Albumin/Globulin Ratio 0.8 (1.1-2.2) L 05/12/16 05:41 Prealbumin 11.0 mg/dL (18.0-45.0) L 05/13/16 04:56 Vitamin B12 154 pg/mL (213-816) L 05/13/16 04:56 25-OH Vitamin D Total 28 ng/mL (30-80) L 05/13/16 04:56 PTH Intact 464.2 pg/ml (8.5-72.5) H 05/13/16 05:54 Urine Bilirubin Moderate (Negative) H 05/11/16 13:20 Ur Leukocyte Esterase Trace (Negative) H 05/11/16 13:20 Urine Microscopic RBC 3-5 per hpf (0-3) H 05/11/16 13:20 Ur Squamous Epith Cells Many per lpf (None-Few) H 05/11/16 13:20 Ur Culture Indicated? YES (NO) A 05/11/16 13:20 Ur Total Protein 24 Hr 370 mg/day (0-299) H 05/14/16 04:18 Protein/Creatinin Ratio 0.26 mg/mg (0-0.20) H 05/14/16 04:18 Ur Urea Nitrogen 24 Hr 9.7 g/day (12.0-20.0) L 05/14/16 04:18 Urine Total Protein 27 mg/dL (1-14) H 05/14/16 04:18 - Diagnostic Findings Chest x-ray: report reviewed, image reviewed CT scan - chest: report reviewed, image reviewed Additional studies: ECHO results noted - Clinical Findings Intake & Output: Intake & Output 05/20/16 05/21/16 05/21/16 23:59 07:59 15:59 Intake Total 120 / 120 Output Total 50 / 50 550 / 550 Balance 70 / 70 -550 / -550 Consult Discharge Plan - Plan Instructions: Renal Failure Diet (GEN) Referrals: Julieth Carias PAC [Physician Criminal Research Specialist] - 05/27/16 2:15 pm Marisa Dobbs, APRICOT PACKER [Primary Care Provider] - Tanner Jaquez MD [Partnered Physician] - 05/29/16 1:30 pm
[2016-05-21] MEDS ORDERED: Mag Hydrox/Al Hydrox/Simeth 30 ML UDC PO PRN (16:10)
[2016-05-21] MEDS: Furosemide 40 MG TABLET PO SCH (17:31)
[2016-05-21] MEDS: traZODone 50 MG TABLET PO SCH (19:59)
[2016-05-22 05:14] LABS: Basophils % 0.2 %; Eosinophils # 0.2 K/mcL (0.0-0.6); Eosinophils % 1.2 %; Hematocrit 27.4 % (37.5-50.1); Hemoglobin 8.5 g/dL (12.9-16.9); Immature Granulocytes % 1.5 % (0-4); Lymphocytes # 0.7 K/mcL (0.6-4.6); Lymphocytes % 5.3 %; Mean Corpuscular Hemoglobin 31.6 pg (28.0-33.3); Mean Corpuscular Volume 101.9 fL (83.0-100.0); Mean Platelet Volume 9.3 fL (9.4-12.4); Monocytes # 0.8 K/mcL (0.0-1.3); Monocytes % 6.4 %; Neutrophils # 10.5 K/mcL (1.6-8.9); Platelet Count 288 K/mcL (140-400); Red Blood Count 2.69 M/mcL (4.19-5.50); Red Cell Distribution Width 15.2 % (11.5-14.5); Segmented Neutrophils % 85.4 %
[2016-05-22 05:42] LABS: Albumin/Globulin Ratio 0.6 (1.1-2.2); Bilirubin,Total 0.6 mg/dL (0.2-1.2); Globulin 3.4 g/dL (2.4-3.5); Potassium 4.4 mEq/L (3.5-4.5); Total Protein 5.3 g/dL (6.0-8.3)
[2016-05-22 05:46] LABS: Albumin 1.9 g/dL (3.5-5.0)
[2016-05-22] MEDS: Calcium Acetate 667 MG CAPSULE PO SCH ×3 (08:09→17:24)
[2016-05-22] MEDS: Multivit/Ca/Min/Fe/FA 1 TAB TABLET PO SCH (08:09)
[2016-05-22] MEDS: levoFLOXacin 750 MG TABLET PO SCH (08:09)
[2016-05-22] MEDS: Ascorbic Acid 500 MG TABLET PO SCH ×2 (08:10→17:23)
[2016-05-22] MEDS: Metoprolol XL (24 HR) Succ 50 MG TAB.ER.24H PO SCH ×2 (08:10→19:42)
[2016-05-22] MEDS: Furosemide 40 MG TABLET PO SCH (08:10)
[2016-05-22] MEDS: Diltiazem CD (24hr) 180 MG CAPSULE PO SCH (08:10)
[2016-05-22] MEDS: Folic Acid 1 MG TABLET PO SCH (08:10)
[2016-05-22] MEDS: Megestrol Acetate 400 MG/10 ML UDC PO SCH ×2 (08:11→19:42)
[2016-05-22] MEDS: *HR* OxyCODONE Immed Rel 5 MG TABLET PO PRN (10:50)
[2016-05-22] MEDS: Budesonide/Formoterol 160/4.5 MDI IH SCH (11:39)
--- NOTE | 2016-05-22 12:15 | ECHO - Doppler Report ---
Echocardiogram Name: Justo Leon Date of Study: 05/22/2016 Date: 1935 Ht: 74.0 in Medical Record#: [id number] Age: 80 Wt: 200.0 lb Gender: Male BSA: 2.17 Order #: [id number] Location: [facility] Room #: [id number] Reading Physician: Tierra Fernandez DO Baling Machine Tender: Gilbert Worthy RN Ordering Physician: Dony Hopkins MD Primary Physician: Marisa Dobbs CNP Indications: Severe Pulmonary Hypertension Impressions: LVEF 50-55%. Normal left ventricular size and systolic function. Indeterminate diastolic function. RV is moderately dilated with normal function. Moderate to severe tricuspid regurgitation. Estimated RVSP was 54 mmHg. Moderate pulmonary hypertension. The IVC is not dilated. There is evidence of a PFO by color Doppler. Left Ventricular Wall Motion: Rest Echo Findings All wall segments showed normal motion. Findings: Study Quality * Technically adequate exam. Mitral Valve * Normal mitral valve structure. * No mitral stenosis. * No mitral regurgitation. Aortic Valve * Aortic valve not well visualized. * Trace aortic regurgitation. * No aortic stenosis. Tricuspid Valve * Moderate-severe tricuspid regurgitation. * Normal tricuspid valve structure. * Estimated RA pressure is 3 mmHg. * Estimated RVSP is 54 mmHg. * Moderate pulmonary hypertension. ECG Findings * Atrial fibrillation. Left Ventricle * Indeterminate diastolic function. * LVEF 50-55%. * Normal size and wall thickness. Right Atrium * Moderately dilated right atrium. Right Ventricle * RV is moderately dilated with normal function. Left Atrium * Severely dilated left atrium. Pulmonary Artery * Pulmonary artery not well visualized. IVC * Normal IVC dimensions and inspiratory collapse. Pericardium * There is no pericardial effusion present. Pulmonic Valve * Pulmonic valve is not well visualized. * No pulmonic stenosis. * No pulmonic regurgitation. Aorta * Normally sized aortic root. Interatrial Septum * There is a PFO by color Doppler. History Hypertension Years 10 Packs 1 05/12/2016 a Previous Echo was performed. Measurements: BP: 109/ 72 2D Normal Values IVSd: 1.10 cm 0.6 - 1.0 cm LVIDd: 4.40 cm 3.7 - 5.6 cm LVPWd: 1.10 cm 0.6 - 1.1 cm LVIDs: 3.20 cm 1.5 - 3.6 cm LA: 4.50 cm 2.0 - 4.0cm %FS: 27.30 cm >25 % LVOT Diam: 2.00 cm LA volume: 148 Mitral Valve Peak E:.86 m/sec Peak E' Lat Sunny:15.5 cm/s Peak E' Med Sunny:16.3 cm/s E/E' Lat Ratio:5.5 E/E' Med Ratio:5.3 Tricuspid Valve TV Regurg Peak Grad: 51.00mmHg Updated by Tierra Fernandez on 05/22/2016 12:08:53 PM electronically signed on 05/22/2016 12:09:48 PM with status of Final Wall Motion Lira: 1=Normal, 2=Hypokinesis, 3=Akinesis, 4=Dyskinesis, 5=Aneurysmal, 6=Hyperkinetic, X=Not Visualized (Blank)=Missing
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
[2016-05-22] MEDS: Magnesium Oxide 400 MG TABLET PO SCH ×2 (15:30→19:43)
--- NOTE | 2016-05-22 15:51 | Internal Med Progress Note ---
<Arturo Huff - Last Filed: 05/22/16 15:58> Date of Encounter: 05/22/16 Time of Encounter: 10:00 - Assessment and plan (1) Fracture of femoral neck Current Visit: Yes Status: Acute Assessment and plan: s/p right hip hemiarthroplasty 05/12/[address] Stroud. Dopplers negative for DVT. Suggestive interstitial edema likely due to fluid overload. PT/OT recommend discharge to inpatient rehabilitation. Awaiting bed availability. Patient is high risk due to risk of falls and need for placement to rehabilitation. Qualifiers: Encounter type: initial encounter Fracture type: closed Laterality: right Qualified Code(s): S72.001A - Fracture of unspecified part of neck of right femur, initial encounter for closed fracture (2) Pulmonary hypertension Current Visit: Yes Status: Chronic Assessment and plan: Echo notable for severe pulmonary hypertension with LVEF 50-55%, RVSP 60, severe dilated right atrium Unknown etiology of pulmonary hypertension. CT scan revealed interstitial changes in the right lower lung. Appreciate pulmonary input. Continue diuresis, with careful monitoring renal function. Repeat Echo 05/22: Preserved EF, RVSP 54, evidence of PFO. (3) CKD (chronic kidney disease) stage 3, GFR 30-59 ml/min Current Visit: Yes Status: Chronic Assessment and plan: Patient follows up with nephrology as an outpatient. Creatinine is back to baseline. Appreciate nephrology input. Treatment of hyperparathyroidism. Avoid nephrotoxic agents and hypotension. (4) Atrial fibrillation Current Visit: Yes Status: Chronic Assessment and plan: Rate controlled with Cardizem and Toprol-XL. CHADVASC 4: consideration for a/c, however, he developed an intracranial bleed and hence, anticoagulation was discontinued. Qualifiers: Atrial fibrillation type: chronic Qualified Code(s): I48.2 - Chronic atrial fibrillation (5) CHAVO (acute kidney injury) Current Visit: Yes Status: Resolved Assessment and plan: Renal function back to baseline. Acute kidney injury resolved. (6) Gout Current Visit: Yes Status: Acute Assessment and plan: His gout flare has resolved. Patient has renal dysfunction (chronic kidney disease) and will likely require chronic therapy for gout. However, due to his current acute illness, we will hold off on starting him on allopurinol. It needs to be addressed as an outpatient. Qualifiers: Gout site: unspecified site Gout etiology: unspecified cause Chronicity: acute Qualified Code(s): M10.9 - Gout, unspecified (7) DVT prophylaxis Current Visit: Yes Status: Acute Assessment and plan: EPCDs - Subjective Interval history: Patient seen/eval from earlier this morning. He was sitting up, breathing 2LNC without conversational dyspnea. He denied any chest pain, pressure, pleurisy, abdominal pain, nvd. - Constitutional Vitals: Temp Pulse Resp BP Pulse Ox 97.8 F 96 16 104/71 100 05/22/16 15:23 05/22/16 15:23 05/22/16 15:23 05/22/16 15:23 05/22/16 15:23 General appearance: Present: A&O X 3, pleasant, no acute distress, answers questions appropriately - Head Head exam: Present: atraumatic, normocephalic - Eye Eye exam: Present: EOMI, sclera anicteric - ENT ENT exam: Present: mucous membranes moist - Neck Neck exam general surgery: Present: supple, trachea midline - Respiratory Respiratory exam: Present: rales (basilar crackles R>L), rhonchi (end exp). Absent: wheezes - Cardiovascular Cardiovascular exam: Present: +S1, +S2. Absent: JVD - GI/Abdominal GI/Abdominal exam: Present: soft, no peritoneal signs. Absent: tenderness - Extremities Exam Extremities exam: Present: pedal edema (2+ hiram pitting LE edema to mid ankle), warm, radial pulses palpable and symetrical. Absent: tenderness - Neurological Exam Neurological exam: Absent: facial droop, speech deficit Internal Medicine: Result - Labs CBC & Chem 7: 05/22/16 04:55 05/22/16 04:55 Labs: Short CBC 05/22/16 Range/Units 04:55 WBC 12.3 H (4.3-11.1) K/mcL Hgb 8.5 L (12.9-16.9) g/dL Hct 27.4 L (37.5-50.1) % Plt Count 288 (140-400) K/mcL Neutrophils # 10.5 H (1.6-8.9) K/mcL BMP 05/22/16 04:55 Sodium 136 Potassium 4.4 Chloride 104 Carbon Dioxide 27 BUN 28 H Creatinine 1.46 H Glucose 109 H Calcium 9.0 Liver Function 05/22/16 Range/Units 04:55 Total Bilirubin 0.6 (0.2-1.2) mg/dL AST 16 (5-34) Units/L ALT 21 (0-55) Units/L Alkaline Phosphatase 82 (38-126) Units/L Albumin 1.9 L (3.5-5.0) g/dL - ABG Interpretation ABG results: PT/INR, D-dimer PT 12.4 Seconds (9.4-12.1) H 05/12/16 05:41 - Impressions Impressions Chest X-Ray 05/21/16 07:00 IMPRESSION: 1. Persistent small right pleural effusion and right basilar opacities which have slightly improved when compared with prior exam. 2. Left basilar atelectasis. D/ / Micha Grimaldo MD / Micha Grimaldo MD Interpreting Provider: Micha Grimaldo MD - VTE Documentation of Mechanical Device: Intermittent pneumatic compression device Consult Discharge Plan - Plan Instructions: Renal Failure Diet (GEN) Referrals: Julieth Carias PAC [Physician Telecom Network Manager] - 05/27/16 2:15 pm Marisa Dobbs SHOW OPERATIONS SUPERVISOR [Primary Care Provider] - Tanner Jaquez MD [Partnered Physician] - 05/29/16 1:30 pm <Dony Hopkins - Last Filed: 05/22/16 16:34> - Assessment and plan (1) Fracture of femoral neck Current Visit: Yes Status: Acute Qualifiers: Encounter type: initial encounter Fracture type: closed Laterality: right Qualified Code(s): S72.001A - Fracture of unspecified part of neck of right femur, initial encounter for closed fracture (2) CKD (chronic kidney disease) stage 3, GFR 30-59 ml/min Current Visit: Yes Status: Chronic (3) CHAVO (acute kidney injury) Current Visit: Yes Status: Resolved (4) Atrial fibrillation Current Visit: Yes Status: Chronic Qualifiers: Atrial fibrillation type: chronic Qualified Code(s): I48.2 - Chronic atrial fibrillation (5) Hyperparathyroidism Current Visit: Yes Status: Chronic (6) Pulmonary hypertension Current Visit: Yes Status: Chronic (7) Gout Current Visit: Yes Status: Acute Qualifiers: Gout site: unspecified site Gout etiology: unspecified cause Chronicity: acute Qualified Code(s): M10.9 - Gout, unspecified - Constitutional Vitals: Temp Pulse Resp BP Pulse Ox 97.8 F 96 16 104/71 100 05/22/16 15:23 05/22/16 15:23 05/22/16 15:23 05/22/16 15:23 05/22/16 15:23 Internal Medicine: Result - Labs CBC & Chem 7: 05/22/16 04:55 05/22/16 04:55 Labs: Short CBC 05/22/16 Range/Units 04:55 WBC 12.3 H (4.3-11.1) K/mcL Hgb 8.5 L (12.9-16.9) g/dL Hct 27.4 L (37.5-50.1) % Plt Count 288 (140-400) K/mcL Neutrophils # 10.5 H (1.6-8.9) K/mcL BMP 05/22/16 04:55 Sodium 136 Potassium 4.4 Chloride 104 Carbon Dioxide 27 BUN 28 H Creatinine 1.46 H Glucose 109 H Calcium 9.0 Liver Function 05/22/16 Range/Units 04:55 Total Bilirubin 0.6 (0.2-1.2) mg/dL AST 16 (5-34) Units/L ALT 21 (0-55) Units/L Alkaline Phosphatase 82 (38-126) Units/L Albumin 1.9 L (3.5-5.0) g/dL - ABG Interpretation ABG results: PT/INR, D-dimer PT 12.4 Seconds (9.4-12.1) H 05/12/16 05:41 - Impressions Impressions Chest X-Ray 05/21/16 07:00 IMPRESSION: 1. Persistent small right pleural effusion and right basilar opacities which have slightly improved when compared with prior exam. 2. Left basilar atelectasis. D/ / Micha Grimaldo MD / Micha Grimaldo MD Interpreting Provider: Micha Grimaldo MD - Attending Attestation I examined this patient and my medical decision-making was reviewed with Dr. Huff. I agree with the documented findings, disposition and treatment plan as described except to the extent set forth below. 80-year-old male admitted due to fracture of the femoral neck. He underwent right hip hemiarthroplasty by orthopedic surgery. He developed shortness of breath and was diagnosed with pneumonia. He is currently receiving treatment for the same. Echocardiogram revealed severe pulmonary hypertension. Pulmonology has assessed the patient. A repeat echocardiogram was requested. Today, patient states that he feels better than yesterday. Examination reveals minimal bilateral basal conditions. Good air entry bilaterally. 2+ bilateral pitting pedal edema with compression stockings. Echocardiogram reveals moderate pulmonary hypertension, severe tricuspid regurgitation, moderately dilated right ventricle. 1. Femoral neck fracture-eventual discharge to rehabilitation after patient is medically stable. 2. Pulmonary hypertension-appreciate pulmonology input. Per pulmonology, likely pulmonary venous hypertension. Diuretic treatment has been recommended. Continue intravenous diuresis. Once euvolemic, will be medically stable for discharge to rehabilitation. Outpatient follow-up with pulmonology. High risk due to need for intravenous diuresis for normalizing his volume status. At risk of worsening respiratory failure and lethal arrhythmias. 3. Emphysema/COPD-bronchodilators. Outpatient pulmonology follow-up. 4. Chronic renal disease stage III-stable and renal function is at baseline. 5. Atrial fibrillation-rate controlled. No anticoagulation due to history of intracranial bleed. 6. Gout 7. Respiratory failure-acute hypoxic 8. Aspiration pneumonia - Levaquin PO for total duration of 7 days abx therapy JAKE Erwin
[2016-05-22] MEDS: Furosemide 40 MG/4 ML VIAL IVP SCH (19:42)
[2016-05-22] MEDS: traZODone 50 MG TABLET PO SCH (19:43)
[2016-05-23] MEDS: Budesonide/Formoterol 160/4.5 MDI IH SCH ×3 (00:19→20:32)
[2016-05-23 04:50] LABS: Basophils % 0.1 %; Eosinophils # 0.1 K/mcL (0.0-0.6); Hematocrit 26.9 % (37.5-50.1); Hemoglobin 8.4 g/dL (12.9-16.9); Immature Granulocytes % 0.9 % (0-4); Lymphocytes # 0.7 K/mcL (0.6-4.6); Lymphocytes % 5.3 %; Mean Corpuscular HGB Conc 31.2 g/dL (31.6-35.5); Mean Corpuscular Hemoglobin 32.2 pg (28.0-33.3); Mean Corpuscular Volume 103.1 fL (83.0-100.0); Mean Platelet Volume 9.4 fL (9.4-12.4); Monocytes # 0.8 K/mcL (0.0-1.3); Monocytes % 6.1 %; Neutrophils # 11.6 K/mcL (1.6-8.9); Platelet Count 331 K/mcL (140-400); Red Blood Count 2.61 M/mcL (4.19-5.50); Red Cell Distribution Width 15.3 % (11.5-14.5); Segmented Neutrophils % 86.6 %
[2016-05-23 05:07] LABS: BUN/Creatinine Ratio 22 (6-26); Blood Urea Nitrogen 30 mg/dL (8-26); Calcium 8.9 mg/dL (8.6-10.8); Carbon Dioxide 29 mEq/L (19-29); Chloride 104 mEq/L (98-109); Glucose 116 mg/dL (70-99); Magnesium 1.9 mg/dL (1.6-2.6); Osmolality,Calculated 289 (280-300); Potassium 4.3 mEq/L (3.5-4.5); Sodium 136 mEq/L (136-145); eGFR For African Americans > 60 (> 60); eGFR For Non-African Americans 51 (> 60)
[2016-05-23] MEDS: levoFLOXacin 750 MG TABLET PO SCH (09:05)
[2016-05-23] MEDS: *HR* OxyCODONE Immed Rel 5 MG TABLET PO PRN ×2 (09:05→15:00)
[2016-05-23] MEDS: Megestrol Acetate 400 MG/10 ML UDC PO SCH ×2 (09:05→21:11)
[2016-05-23] MEDS: Ascorbic Acid 500 MG TABLET PO SCH ×2 (09:06→17:18)
[2016-05-23] MEDS: Multivit/Ca/Min/Fe/FA 1 TAB TABLET PO SCH (09:06)
[2016-05-23] MEDS: Magnesium Oxide 400 MG TABLET PO SCH ×2 (09:06→21:11)
[2016-05-23] MEDS: Calcium Acetate 667 MG CAPSULE PO SCH ×3 (09:07→17:18)
[2016-05-23] MEDS: Metoprolol XL (24 HR) Succ 50 MG TAB.ER.24H PO SCH ×2 (09:07→10:05)
[2016-05-23] MEDS: Folic Acid 1 MG TABLET PO SCH (09:07)
[2016-05-23] MEDS: Diltiazem CD (24hr) 180 MG CAPSULE PO SCH (09:08)
[2016-05-23] MEDS: Furosemide 40 MG/4 ML VIAL IVP SCH (09:09)
--- NOTE | 2016-05-23 10:10 | Internal Med Progress Note ---
<Arturo Huff - Last Filed: 05/23/16 12:42> Date of Encounter: 05/23/16 Time of Encounter: 08:10 - Assessment and plan (1) Fracture of femoral neck Current Visit: Yes Status: Acute Assessment and plan: s/p right hip hemiarthroplasty 05/12/[address] Stroud. Dopplers negative for DVT. Suggestive interstitial edema likely due to fluid overload. PT/OT recommend discharge to inpatient rehabilitation. Awaiting bed availability. Patient is high risk due to risk of falls and need for placement to rehabilitation. Qualifiers: Encounter type: initial encounter Fracture type: closed Laterality: right Qualified Code(s): S72.001A - Fracture of unspecified part of neck of right femur, initial encounter for closed fracture (2) Pulmonary hypertension Current Visit: Yes Status: Chronic Assessment and plan: Echo notable for severe pulmonary hypertension with LVEF 50-55%, RVSP 60, severe dilated right atrium Unknown etiology of pulmonary hypertension. CT scan revealed interstitial changes in the right lower lung. Appreciate pulmonary input. Continue diuresis, with careful monitoring renal function. Repeat Echo 05/22: Preserved EF, RVSP 54, evidence of PFO. 05/23, Diuresis held 2* hypotension. (3) CKD (chronic kidney disease) stage 3, GFR 30-59 ml/min Current Visit: Yes Status: Chronic Assessment and plan: Patient follows up with nephrology as an outpatient. Creatinine is back to baseline. Appreciate nephrology input. Treatment of hyperparathyroidism. Avoid nephrotoxic agents and hypotension. (4) Atrial fibrillation Current Visit: Yes Status: Chronic Assessment and plan: Rate controlled with Cardizem and Toprol-XL. CHADVASC 4: consideration for a/c, however, he developed an intracranial bleed and hence, anticoagulation was discontinued. Qualifiers: Atrial fibrillation type: chronic Qualified Code(s): I48.2 - Chronic atrial fibrillation (5) CHAVO (acute kidney injury) Current Visit: Yes Status: Resolved Assessment and plan: Renal function back to baseline. Acute kidney injury resolved. (6) Gout Current Visit: Yes Status: Acute Assessment and plan: His gout flare has resolved. Patient has renal dysfunction (chronic kidney disease) and will likely require chronic therapy for gout. However, due to his current acute illness, we will hold off on starting him on allopurinol. It needs to be addressed as an outpatient. Qualifiers: Gout site: unspecified site Gout etiology: unspecified cause Chronicity: acute Qualified Code(s): M10.9 - Gout, unspecified (7) DVT prophylaxis Current Visit: Yes Status: Acute Assessment and plan: EPCDs - Subjective Interval history: Patient seen/eval, he was sitting up, breathing 2LNC without conversational dyspnea. He denied any chest pain, pressure, pleurisy, abdominal pain, nvd. States that he is improving on physical therapy. He did produced more urine from lasix regimen. - Constitutional Vitals: Temp Pulse Resp BP Pulse Ox 98.2 F 99 18 88/58 99 05/23/16 07:21 05/23/16 07:21 05/23/16 08:52 05/23/16 07:21 05/23/16 08:52 General appearance: Present: A&O X 3, pleasant, no acute distress, answers questions appropriately - Head Head exam: Present: atraumatic - Eye Eye exam: Present: EOMI, sclera anicteric - ENT ENT exam: Present: mucous membranes moist - Neck Neck exam general surgery: Present: normal inspection, trachea midline - Respiratory Respiratory exam: Present: rhonchi (scant end exp, some basilar crackles) - Cardiovascular Cardiovascular exam: Present: +S1, +S2. Absent: JVD - GI/Abdominal GI/Abdominal exam: Present: soft, no peritoneal signs. Absent: tenderness - Extremities Exam Extremities exam: Present: pedal edema (2+ pitting to knees), warm, radial pulses palpable and symetrical - Neurological Exam Neurological exam: Absent: facial droop Internal Medicine: Result - Labs CBC & Chem 7: 05/23/16 04:20 05/23/16 04:20 Labs: Short CBC 05/23/16 Range/Units 04:20 WBC 13.4 H (4.3-11.1) K/mcL Hgb 8.4 L (12.9-16.9) g/dL Hct 26.9 L (37.5-50.1) % Plt Count 331 (140-400) K/mcL Neutrophils # 11.6 H (1.6-8.9) K/mcL BMP 05/23/16 04:20 Sodium 136 Potassium 4.3 Chloride 104 Carbon Dioxide 29 BUN 30 H Creatinine 1.35 H Glucose 116 H Calcium 8.9 - ABG Interpretation ABG results: PT/INR, D-dimer PT 12.4 Seconds (9.4-12.1) H 05/12/16 05:41 - VTE Documentation of Mechanical Device: Intermittent pneumatic compression device Consult Discharge Plan - Plan Instructions: Renal Failure Diet (GEN) Referrals: Julieth Carias PAC [Physician Police Manager] - 05/27/16 2:15 pm Marisa Dobbs, TOWER CLIMBER [Primary Care Provider] - Tanner Jaquez MD [Partnered Physician] - 05/29/16 1:30 pm <Dony Hopkins - Last Filed: 05/23/16 14:48> - Assessment and plan (1) Fracture of femoral neck Current Visit: Yes Status: Acute Qualifiers: Encounter type: initial encounter Fracture type: closed Laterality: right Qualified Code(s): S72.001A - Fracture of unspecified part of neck of right femur, initial encounter for closed fracture (2) CKD (chronic kidney disease) stage 3, GFR 30-59 ml/min Current Visit: Yes Status: Chronic (3) CHAVO (acute kidney injury) Current Visit: Yes Status: Resolved (4) Atrial fibrillation Current Visit: Yes Status: Chronic Qualifiers: Atrial fibrillation type: chronic Qualified Code(s): I48.2 - Chronic atrial fibrillation (5) Hyperparathyroidism Current Visit: Yes Status: Chronic (6) Pulmonary hypertension Current Visit: Yes Status: Chronic (7) Gout Current Visit: Yes Status: Acute Qualifiers: Gout site: unspecified site Gout etiology: unspecified cause Chronicity: acute Qualified Code(s): M10.9 - Gout, unspecified - Constitutional Vitals: Temp Pulse Resp BP Pulse Ox 97.6 F 103 16 119/72 98 05/23/16 12:04 05/23/16 12:04 05/23/16 12:04 05/23/16 12:04 05/23/16 12:04 Internal Medicine: Result - Labs CBC & Chem 7: 05/23/16 04:20 05/23/16 04:20 Labs: Short CBC 05/23/16 Range/Units 04:20 WBC 13.4 H (4.3-11.1) K/mcL Hgb 8.4 L (12.9-16.9) g/dL Hct 26.9 L (37.5-50.1) % Plt Count 331 (140-400) K/mcL Neutrophils # 11.6 H (1.6-8.9) K/mcL BMP 05/23/16 04:20 Sodium 136 Potassium 4.3 Chloride 104 Carbon Dioxide 29 BUN 30 H Creatinine 1.35 H Glucose 116 H Calcium 8.9 - ABG Interpretation ABG results: PT/INR, D-dimer PT 12.4 Seconds (9.4-12.1) H 05/12/16 05:41 - Attending Attestation I examined this patient and my medical decision-making was reviewed with Dr. Huff. I agree with the documented findings, disposition and treatment plan as described except to the extent set forth below. Hypotension this morning and lasix DC. Still has pedal edema on exam. Hold diuretics. Out pt. pulm. follow up for his pulm. HTN. Oxygen 24 x 7. DC when bed available.
[2016-05-23] MEDS: traZODone 50 MG TABLET PO SCH (21:11)
[2016-05-24 06:39] LABS: Basophils % 0.2 %; Eosinophils # 0.1 K/mcL (0.0-0.6); Hematocrit 27.3 % (37.5-50.1); Hemoglobin 8.4 g/dL (12.9-16.9); Immature Granulocytes % 0.9 % (0-4); Lymphocytes # 0.6 K/mcL (0.6-4.6); Lymphocytes % 5.2 %; Mean Corpuscular HGB Conc 30.8 g/dL (31.6-35.5); Mean Corpuscular Hemoglobin 31.5 pg (28.0-33.3); Mean Corpuscular Volume 102.2 fL (83.0-100.0); Mean Platelet Volume 9.1 fL (9.4-12.4); Monocytes # 0.8 K/mcL (0.0-1.3); Monocytes % 6.8 %; Platelet Count 378 K/mcL (140-400); Red Blood Count 2.67 M/mcL (4.19-5.50); Red Cell Distribution Width 15.6 % (11.5-14.5); Segmented Neutrophils % 85.9 %
[2016-05-24 06:42] LABS: BUN/Creatinine Ratio 23 (6-26); Blood Urea Nitrogen 29 mg/dL (8-26); Carbon Dioxide 27 mEq/L (19-29); Chloride 104 mEq/L (98-109); Glucose 108 mg/dL (70-99); Magnesium 2.1 mg/dL (1.6-2.6); Osmolality,Calculated 288 (280-300); Potassium 4.6 mEq/L (3.5-4.5); Sodium 136 mEq/L (136-145); eGFR For African Americans > 60 (> 60); eGFR For Non-African Americans 54 (> 60)
[2016-05-24] MEDS: *HR* OxyCODONE Immed Rel 5 MG TABLET PO PRN (06:42)
[2016-05-24] MEDS: Budesonide/Formoterol 160/4.5 MDI IH SCH ×2 (08:01→21:15)
--- NOTE | 2016-05-24 08:47 | Discharge Summary ---
<Arturo Huff - Last Filed: 05/24/16 12:40> Date of Encounter: 05/24/16 Time of Encounter: 08:40 - Discharge Diagnosis (1) Fracture of femoral neck Priority: Primary Status: Acute Qualifiers: Encounter type: initial encounter Fracture type: closed Laterality: right Qualified Code(s): S72.001A - Fracture of unspecified part of neck of right femur, initial encounter for closed fracture (2) Pulmonary hypertension Priority: Primary Status: Chronic (3) CKD (chronic kidney disease) stage 3, GFR 30-59 ml/min Priority: Primary Status: Chronic (4) Atrial fibrillation Priority: Secondary Status: Chronic Qualifiers: Atrial fibrillation type: chronic Qualified Code(s): I48.2 - Chronic atrial fibrillation (5) CHAVO (acute kidney injury) Priority: Primary Status: Resolved (6) Gout Priority: Secondary Status: Chronic Qualifiers: Gout site: unspecified site Gout etiology: unspecified cause Chronicity: acute Qualified Code(s): M10.9 - Gout, unspecified (7) DVT prophylaxis Priority: Secondary Status: Acute - Discharge Medications Prescriptions: Budesonide/Formoterol 160/4.5 [Symbicort 160/4.5] 2 puff IH BIDR #1 inhaler Docusate [Colace] 100 mg PO BID #40 capsule Ferrous Sulfate 325 mg PO BIDWM #40 tablet HYDROcodone/Acet 5/325 mg [[place] 5-325 mg] 1 tab PO QID PRN #80 tablet PRN Reason: Pain Magnesium Oxide [Mag-Ox] 400 mg PO DAILY #40 tablet Megestrol Acetate [Megace] 400 mg PO BID #60 udc Melatonin 3 mg PO HS PRN #30 tablet PRN Reason: Insomnia Multivit/Ca/Min/Fe/FA [Thera M Plus] 1 tab PO DAILY #30 tablet Home Medications: Calcitriol [Rocaltrol] 0.25 mcg PO DAILY 05/11/16 [History] Diltiazem HCl [Cartia Xt] 240 mg PO DAILY 05/11/16 [History] Diphenhydramine HCl [Nighttime Sleep Aid] 100 mg PO HS 05/11/16 [History] Famotidine [Acid House Decorator] 10 mg PO DAILY 05/11/16 [History] Folic Acid 1,200 mcg PO DAILY 05/11/16 [History] Megestrol Acetate [Megace] 400 mg PO BID 05/11/16 [History] Metoprolol Succinate [Toprol Xl] 100 mg PO BID 05/11/16 [History] Tamsulosin [Flomax] 0.4 mg PO DAILY 05/11/16 [History] TraZODone 50 mg PO HS 05/11/16 [History] Budesonide/Formoterol 160/4.5 [Symbicort 160/4.5] 2 puff IH BIDR #1 inhaler [Rx] Docusate [Colace] 100 mg PO BID #40 capsule 05/24/16 [Rx] Ferrous Sulfate 325 mg PO BIDWM #40 tablet 05/24/16 [Rx] HYDROcodone/Acet 5/325 mg [[place] 5-325 mg] 1 tab PO QID PRN #80 tablet 05/24/16 [Rx] Magnesium Oxide [Mag-Ox] 400 mg PO DAILY #40 tablet 05/24/16 [Rx] Megestrol Acetate [Megace] 400 mg PO BID #60 udc 05/24/16 [Rx] Melatonin 3 mg PO HS PRN #30 tablet 05/24/16 [Rx] Multivit/Ca/Min/Fe/FA [Thera M Plus] 1 tab PO DAILY #30 tablet 05/24/16 [Rx] Allergies/Adverse Reactions: Allergies No Known Allergies Allergy (Verified 05/06/16 12:16) Procedures/tests Complete & Pending: Procedures Performed prior 72 hours Category Date Time Status EV echocardiogram Routine Y 05/22/16 17:03 Completed Date of admission: 05/11/16 13:05 Primary care physician: Marisa Dobbs CNP Consults: 05/11/16 14:40 Consult to Occupational Therapy [CONS] Routine Comment: Evaluate, develop and implement POC Consult to Physical Therapy [CONS] Routine Comment: Evaluate, develop and implement POC Consult to Surgical Supply Assistant ([employer]) [CONS] Routine Reason For Exam: Reason for SW Consult: ABDOULAYE elmore. will likely need inpaient rehab. 05/12/16 12:05 Consult to Nutrition [CONS] Routine Comment: patient with poor po intake and low albumin. Consulting Provider: NUTRITION Reason for Dietary Consult: Supplemental Nutrition 05/14/16 14:03 Consult to Psychiatry [CONS] Stat Consulting Provider: Psychiatry Jessica Reason for Consult: evaluation of depression. Teary/Sad, as per has been withdrawing for the last two years Call Completed: Yes 05/17/16 14:26 Consult to Invasive Line Access Team [CONS] Routine Reason for Consult: epiv placement Line Type: EPIV 05/21/16 09:26 Consult to Pulmonology [CONS] Routine Consulting Provider: [facility]m [facility] Reason for Consult: Severe Pulm. HTN; Had right lower lobectomy @ age 11. Works with horses and hay. Has hypoxia now Call Completed: Yes Discharging clinician: Dony Hopkins Anticipated date of discharge: 05/24/16 - Patient Status Disposition: Transfer SNF Condition: Fair Functional capacity at discharge: uses cane/walker Overall status at discharge: patient is progressing back to baseline - Discharge Instructions Instructions: Renal Failure Diet (GEN) Follow Up With: Julieth Carias PAC [Physician Android Software Engineer] - 05/27/16 2:15 pm Marisa Dobbs CNP [Primary Care Provider] - Tanner Jaquez MD [Partnered Physician] - 05/29/16 1:30 pm Eitan Kelley DO [Partnered Physician] - (f/u in 2-4 months, CHAVO on CKD) Rod Chan MD [Partnered Physician] - (2-4 weeks, pulmonary hypertension) - Diet and Activity Activity: as per physical therapy, wear oxygen at all times Diet: low salt diet, other (renal) Hospital course: Mr. 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 He presented to [facility] for further evaluation, with imaging disclosing a right femoral neck fracture. Patient was optimized preoperatively prior to right hip repair. Nephrology service consulted for CHAVO on CKD, with suspected ATN due to multiple etiologies. Diuretics were held, and patient was followed closely with judicious IV fluids. Cardiology service consulted for preop cardiovascular clearance. Patient does have history of A. fib status post ablation without recurrence and he was not on anticoagulation secondary to hemorrhagic strokes mentioned above. Patient was deemed a moderate risk patient for possible urgent moderate risk hip surgery. Orthopedic surgery was consulted for right hip femoral neck fracture. The patient underwent right hip arthroplasty on 05/12/2016. His postoperative course would include improving urine output and creatinine. Psychiatry service was consulted for altered mental status in the setting of history of depression. The patient denied any thoughts of harm to self or others. Psychiatry recommended discontinuing temazepam for sleep and using trazodone. Would recommended for outpatient follow-up with a psychiatrist once his medical issues have been addressed. Patient's creatinine continued to improve towards his baseline, nephrology recommended for BMP in 5-7 days after discharge, with results to [facility] and his PCP. Recommended for follow-up with Dr. Kelley next 2- 4 months if not already scheduled. Patient would sustain increasing leukocytosis, accompanied by bandemia, with CT chest consistent with pneumonia. Patient was started on Levaquin monotherapy. He would commence on Symbicort and breathing treatments. Orthopedic service would reevaluate patient for drainage, with note disclosing no erythema or signs of infection. Recommend to hold anticoagulation and obtain Dopplers of lower extremities. Dopplers disclose no ultrasound evidence of DVT. The patient did undergo PT and OT evaluations, with recommendation for rehabilitation. Echo noted severe pulmonary hypertension, ejection fraction 50-55%, severely dilated right atrium. RVSP 63mmHg Pulmonology consulted for pulmonary hypertension, suspicion for group 2 pulmonary venous hypertension. Recommend for repeat echo and complete with bubble study. Also continue diuresis. Repeat echo 05/22/2016, EF 50-55%, normal left ventricular size and systolic function. Moderate to severe tricuspid regurgitation Estimated RVSP 54 mmHg Moderate pulmonary hypertension. There is evidence of a PFO by color Doppler. Pulmonary recommendation to continue diuresis, suspect contribution of the PFO recurrent hypoxemia is unclear but doubt it is having much of an effect at this time. Patient continued diuresis, with interval transient hypotension, subsequently the diuresis was held. Patient did improve with blood pressure to 119/72, sitting up without any distress. His albumin is low at 1.6. Nutrition was on board and continued dietary supplement. Suspect that the patient may be having any effective diuresis due to low oncotic pressure from low albumin. Physical therapy and occupational therapy consultation, with recommendation for ECF rehabilitation. At time of discharge, patient was clinically improved, hemodynamically stable, progressing towards baseline, and agreeable with plan of care. Patient will be discharged to rehabilitation, and have follow-up appointments with nephrology in 2-4 months, with BMP in 7 days. Patient will follow-up with pulmonology in 2 -4 weeks regarding his pulmonary hypertension. OARRS report was checked disclosing appropriate regimen and single provider. The patient did finish a five-day course of Levaquin. Changes to his home regimen include addition of Megace for appetite stimulation, change in Lasix to 40 mg by mouth daily. Adjusted in light of his hypotension and recovery from acute kidney injury. Patient was advised to hold it nephrotoxic agents including but not limited to NSAIDs such as ibuprofen Advil or Aleve Toradol. Patient was counseled to seek immediate medical attention for any new or worsening symptoms including but not limited to: Fever, chills, increased hip pain, chest pain, difficulty breathing , cough, darkened urine, lightheadedness, dizziness, and he voiced understanding. Again it is emphasized that the patient has chronic atrial fibrillation, but he is not an appropriate candidate for long-term anticoagulation due to history of recurrent falls and prior hemorrhagic strokes. - Time Spent with Patient Total time spent providing and/or coordinating discharge services: Greater than 30 minutes - Constitutional Vitals: Temp Pulse Resp BP Pulse Ox 98.5 F 104 16 100/66 97 05/24/16 07:01 05/24/16 07:01 05/24/16 07:01 05/24/16 07:01 05/24/16 07:01 General appearance: Present: A&O X 3, pleasant, no acute distress, answers questions appropriately - Head Head exam: Present: atraumatic, normocephalic - Eye Eye exam: Present: EOMI, sclera anicteric - ENT ENT exam: Present: mucous membranes moist - Respiratory Respiratory exam: Present: rhonchi (scant ronchi, no basilar crackles). Absent : accessory muscle use - Cardiovascular Cardiovascular exam: Present: +S1, +S2. Absent: JVD - GI/Abdominal GI/Abdominal exam: Present: soft, no peritoneal signs. Absent: tenderness - Extremities Exam Extremities exam: Present: pedal edema (2+ pitting pretibial edema to mid-ankle , has compression stockings on), warm, radial pulses palpable and symetrical Additional comments: R hip no fluctuance or drainage - Neurological Exam Neurological exam: Present: strengths equal and symetr throughout. Absent: facial droop, speech deficit - VTE Documentation of Mechanical Device: Intermittent pneumatic compression device <Dony Hopkins - Last Filed: 05/24/16 15:45> - Discharge Diagnosis (1) Fracture of femoral neck Status: Acute Qualifiers: Encounter type: initial encounter Fracture type: closed Laterality: right Qualified Code(s): S72.001A - Fracture of unspecified part of neck of right femur, initial encounter for closed fracture (2) CKD (chronic kidney disease) stage 3, GFR 30-59 ml/min Status: Chronic (3) CHAVO (acute kidney injury) Status: Resolved (4) Atrial fibrillation Status: Chronic Qualifiers: Atrial fibrillation type: chronic Qualified Code(s): I48.2 - Chronic atrial fibrillation (5) Hyperparathyroidism Status: Chronic (6) Pulmonary hypertension Status: Chronic (7) Gout Status: Chronic Qualifiers: Gout site: unspecified site Gout etiology: unspecified cause Chronicity: acute Qualified Code(s): M10.9 - Gout, unspecified Procedures/tests Complete & Pending: Procedures Performed prior 72 hours Category Date Time Status EV echocardiogram Routine Y 05/22/16 17:03 Completed Date of admission: 05/11/16 13:05 Primary care physician: Marisa Dobbs CNP Consults: 05/11/16 14:40 Consult to Occupational Therapy [CONS] Routine Comment: Evaluate, develop and implement POC Consult to Physical Therapy [CONS] Routine Comment: Evaluate, develop and implement POC Consult to Surgical Supply Assistant ([employer]) [CONS] Routine Reason For Exam: Reason for SW Consult: DC plannin. will likely need inpaient rehab. 05/12/16 12:05 Consult to Nutrition [CONS] Routine Comment: patient with poor po intake and low albumin. Consulting Provider: NUTRITION Reason for Dietary Consult: Supplemental Nutrition 05/14/16 14:03 Consult to Psychiatry [CONS] Stat Consulting Provider: Psychiatry Jessica Reason for Consult: evaluation of depression. Teary/Sad, as per has been withdrawing for the last two years Call Completed: Yes 05/17/16 14:26 Consult to Invasive Line Access Team [CONS] Routine Reason for Consult: epiv placement Line Type: EPIV 05/21/16 09:26 Consult to Pulmonology [CONS] Routine Consulting Provider: Pulm Crit [facility] Reason for Consult: Severe Pulm. HTN; Had right lower lobectomy @ age 11. 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 Huff. I agree with the documented findings, disposition and treatment plan as described except to the extent set forth below. 80 yo who presented for hip fracture but had a complicated course and eventually found to have Pulm. HTN that is severe. PFO on ECHO. Out pt. pulm. follow up. Start inhalers. Oxygen supplementation due to hypoxic respiratory failure. Sitting in bed and in no acute distress. CTAB. B/L pedal edema 3+. DC to ECF when bed available. Time spent on DC - 40 min Dony Hopkins MD
--- NOTE | 2016-05-24 09:54 | Physician Discharge Referral ---
ExtendedCare Referral Info Transfer To: [facility] Provider in Charge: Dr. Sim Hopkins Provider in Charge after Transfer: PCP Institutional Level of Care: Skilled - Diagnosis (1) Fracture of femoral neck Priority: Primary Status: Acute (2) Pulmonary hypertension Priority: Primary Status: Chronic (3) CKD (chronic kidney disease) stage 3, GFR 30-59 ml/min Priority: Primary Status: Chronic (4) Atrial fibrillation Priority: Secondary Status: Chronic (5) CHAVO (acute kidney injury) Priority: Primary Status: Resolved (6) Gout Priority: Secondary Status: Chronic (7) DVT prophylaxis Priority: Secondary Status: Acute Prognosis: Fair Aware of Diagnosis: Patient Aware of Prognosis: Patient - Transfer Medications Prescriptions: Budesonide/Formoterol 160/4.5 [Symbicort 160/4.5] 2 puff IH BIDR #1 inhaler Docusate [Colace] 100 mg PO BID #40 capsule Ferrous Sulfate 325 mg PO BIDWM #40 tablet HYDROcodone/Acet 5/325 mg [[place] 5-325 mg] 1 tab PO QID PRN #80 tablet PRN Reason: Pain Magnesium Oxide [Mag-Ox] 400 mg PO DAILY #40 tablet Megestrol Acetate [Megace] 400 mg PO BID #60 udc Melatonin 3 mg PO HS PRN #30 tablet PRN Reason: Insomnia Multivit/Ca/Min/Fe/FA [Thera M Plus] 1 tab PO DAILY #30 tablet Home Medications: Calcitriol [Rocaltrol] 0.25 mcg PO DAILY 05/11/16 [History] Diltiazem HCl [Cartia Xt] 240 mg PO DAILY 05/11/16 [History] Diphenhydramine HCl [Nighttime Sleep Aid] 100 mg PO HS 05/11/16 [History] Famotidine [Acid Natural Resources Professor] 10 mg PO DAILY 05/11/16 [History] Folic Acid 1,200 mcg PO DAILY 05/11/16 [History] Megestrol Acetate [Megace] 400 mg PO BID 05/11/16 [History] Metoprolol Succinate [Toprol Xl] 100 mg PO BID 05/11/16 [History] Tamsulosin [Flomax] 0.4 mg PO DAILY 05/11/16 [History] TraZODone 50 mg PO HS 05/11/16 [History] Budesonide/Formoterol 160/4.5 [Symbicort 160/4.5] 2 puff IH BIDR #1 inhaler [Rx] Docusate [Colace] 100 mg PO BID #40 capsule 05/24/16 [Rx] Ferrous Sulfate 325 mg PO BIDWM #40 tablet 05/24/16 [Rx] HYDROcodone/Acet 5/325 mg [[place] 5-325 mg] 1 tab PO QID PRN #80 tablet 05/24/16 [Rx] Magnesium Oxide [Mag-Ox] 400 mg PO DAILY #40 tablet 05/24/16 [Rx] Megestrol Acetate [Megace] 400 mg PO BID #60 udc 05/24/16 [Rx] Melatonin 3 mg PO HS PRN #30 tablet 05/24/16 [Rx] Multivit/Ca/Min/Fe/FA [Thera M Plus] 1 tab PO DAILY #30 tablet 05/24/16 [Rx] Allergies/Adverse Reactions: Allergies No Known Allergies Allergy (Verified 05/06/16 12:16) - Respiratory Orders Oxygen / L per min (2LNC) Smoking Cessation: Smoking cessation has been advised. For more information, call the [place] Tobacco Quit Line at 1-294-MDAM-NOW. - Ancillary Orders May use pressure relief devices daily prn - Advance Directives Living Will: No Power of Turpentine Farmer: No Code Status: Full Code - Mobility Orders Chair, Ambulate - Rehabiliation Orders Rehab Potential: Fair Rehab Orders: Evaluation for Physical Therapy, Evaluation for Occupational Therapy - Treatments Skin tear care topically daily PRN per policy - Diet Orders Renal CERTIFICATION: I certify that the transfer of the above named patient to an Extended Care Facility is necessary for the continuing treatment of the diagnosis listed. The above information is true and accurate reflection of patient's current condition. Confidential - Redisclosure prohibited without a patient's written consent.
[2016-05-24] MEDS: Diltiazem CD (24hr) 180 MG CAPSULE PO SCH (10:06)
[2016-05-24] MEDS: Metoprolol XL (24 HR) Succ 50 MG TAB.ER.24H PO SCH (10:07)
[2016-05-24] MEDS: Ascorbic Acid 500 MG TABLET PO SCH ×2 (10:08→17:14)
[2016-05-24] MEDS: levoFLOXacin 750 MG TABLET PO SCH (10:08)
[2016-05-24] MEDS: Multivit/Ca/Min/Fe/FA 1 TAB TABLET PO SCH (10:08)
[2016-05-24] MEDS: Megestrol Acetate 400 MG/10 ML UDC PO SCH ×2 (10:08→20:01)
[2016-05-24] MEDS: Calcium Acetate 667 MG CAPSULE PO SCH ×3 (10:08→17:15)
[2016-05-24] MEDS: Folic Acid 1 MG TABLET PO SCH (10:08)
[2016-05-24] MEDS: Magnesium Oxide 400 MG TABLET PO SCH ×2 (10:14→20:01)
[2016-05-24] MEDS: *HR* OxyCODONE Immed Rel 5 MG TABLET PO SCH ×4 (11:35→23:02)
[2016-05-24] MEDS: traZODone 50 MG TABLET PO SCH (20:01)
[2016-05-24] MEDS: Melatonin 3 MG TABLET PO PRN (20:02)
[2016-05-25 06:08] LABS: Basophils % 0.3 %; Eosinophils # 0.1 K/mcL (0.0-0.6); Eosinophils % 0.9 %; Hematocrit 28.1 % (37.5-50.1); Hemoglobin 8.8 g/dL (12.9-16.9); Immature Granulocytes % 1.2 % (0-4); Lymphocytes # 0.6 K/mcL (0.6-4.6); Lymphocytes % 5.5 %; Mean Corpuscular HGB Conc 31.3 g/dL (31.6-35.5); Mean Corpuscular Hemoglobin 32.4 pg (28.0-33.3); Mean Corpuscular Volume 103.3 fL (83.0-100.0); Mean Platelet Volume 9.3 fL (9.4-12.4); Monocytes # 0.8 K/mcL (0.0-1.3); Monocytes % 7.1 %; Neutrophils # 9.3 K/mcL (1.6-8.9); Platelet Count 386 K/mcL (140-400); Red Blood Count 2.72 M/mcL (4.19-5.50); Red Cell Distribution Width 15.6 % (11.5-14.5)
[2016-05-25] MEDS: *HR* OxyCODONE Immed Rel 5 MG TABLET PO SCH ×6 (06:08→21:14)
[2016-05-25 06:21] LABS: Calcium 9.3 mg/dL (8.6-10.8); Magnesium 2.4 mg/dL (1.6-2.6); Potassium 4.9 mEq/L (3.5-4.5)
[2016-05-25] MEDS: Budesonide/Formoterol 160/4.5 MDI IH SCH ×2 (09:16→22:41)
[2016-05-25] MEDS: Ascorbic Acid 500 MG TABLET PO SCH ×2 (09:37→15:57)
[2016-05-25] MEDS: Multivit/Ca/Min/Fe/FA 1 TAB TABLET PO SCH (09:37)
[2016-05-25] MEDS: Calcium Acetate 667 MG CAPSULE PO SCH ×3 (09:38→15:57)
[2016-05-25] MEDS: Folic Acid 1 MG TABLET PO SCH (09:39)
[2016-05-25] MEDS: Megestrol Acetate 400 MG/10 ML UDC PO SCH ×2 (09:39→21:15)
[2016-05-25] MEDS: Diltiazem CD (24hr) 180 MG CAPSULE PO SCH (09:39)
[2016-05-25] MEDS: Magnesium Oxide 400 MG TABLET PO SCH ×2 (09:39→21:15)
[2016-05-25] MEDS: Metoprolol XL (24 HR) Succ 50 MG TAB.ER.24H PO SCH (09:40)
--- NOTE | 2016-05-25 13:20 | Internal Med Progress Note ---
Date of Encounter: 05/25/16 Time of Encounter: 13:00 - Assessment and plan (1) Fracture of femoral neck Current Visit: Yes Status: Acute Assessment and plan: s/p right hip hemiarthroplasty 05/12/16. DC when bed available - likely on Friday Qualifiers: Encounter type: initial encounter Fracture type: closed Laterality: right Qualified Code(s): S72.001A - Fracture of unspecified part of neck of right femur, initial encounter for closed fracture (2) CKD (chronic kidney disease) stage 3, GFR 30-59 ml/min Current Visit: Yes Status: Chronic Assessment and plan: Patient follows up with nephrology as an outpatient. Creatinine is back to baseline. (3) CHAVO (acute kidney injury) Current Visit: Yes Status: Resolved (4) Atrial fibrillation Current Visit: Yes Status: Chronic Assessment and plan: Rate controlled with Cardizem and Toprol-XL. CHADVASC 4: No anticoagulation due to history of an intracranial bleed Qualifiers: Atrial fibrillation type: chronic Qualified Code(s): I48.2 - Chronic atrial fibrillation (5) Hyperparathyroidism Current Visit: Yes Status: Chronic Assessment and plan: Treatment of vitamin D deficiency. Outpatient follow-up with nephrology. (6) Pulmonary hypertension Current Visit: Yes Status: Chronic Assessment and plan: Out. pt. pulm. follow up Oxygen supplementation Breathing treatments (7) Gout Current Visit: Yes Status: Chronic Qualifiers: Gout site: unspecified site Gout etiology: unspecified cause Chronicity: acute Qualified Code(s): M10.9 - Gout, unspecified - Subjective Interval history: Pt. doing well. Unable to DC due to insurance closed on . Can't DC until friday. - Constitutional Vitals: Temp Pulse Resp BP Pulse Ox 97.9 F 93 16 128/64 96 05/25/16 10:36 05/25/16 10:36 05/25/16 10:36 05/25/16 10:36 05/25/16 10:36 General appearance: Present: A&O X 3, pleasant, no acute distress, answers questions appropriately Exam: Gen.: Sitting in a chair. No acute distress. Chest: Clear to auscultation bilaterally. No adventitious sounds present. CVS: First and second heart sounds present. No murmurs, rubs or gallops. Internal Medicine: Result - Labs CBC & Chem 7: 05/25/16 05:47 05/25/16 05:47 Labs: Short CBC 05/25/16 Range/Units 05:47 WBC 11.0 (4.3-11.1) K/mcL Hgb 8.8 L (12.9-16.9) g/dL Hct 28.1 L (37.5-50.1) % Plt Count 386 (140-400) K/mcL Neutrophils # 9.3 H (1.6-8.9) K/mcL BMP 05/25/16 05:47 Sodium 136 Potassium 4.9 H Chloride 102 Carbon Dioxide 26 BUN 34 H Creatinine 1.67 H Glucose 126 H Calcium 9.3 - ABG Interpretation ABG results: PT/INR, D-dimer PT 12.4 Seconds (9.4-12.1) H 05/12/16 05:41 - VTE Documentation of Mechanical Device: Graduated compression elastic hosiery Consult Discharge Plan - Plan Instructions: Renal Failure Diet (GEN) Referrals: Julieth Carias, DM [Physician Theoretical Physicist] - 05/27/16 2:15 pm Etian Kelley DO [Partnered Physician] - (f/u in 2-4 months, CHAVO on CKD) Marisa Dobbs CNP [Primary Care Provider] - Rod Chan MD [Partnered Physician] - (2-4 weeks, pulmonary hypertension) Tanner Jaquez MD [Partnered Physician] - 05/29/16 1:30 pm Prescriptions: Budesonide/Formoterol 160/4.5 [Symbicort 160/4.5] 2 puff IH BIDR #1 inhaler Docusate [Colace] 100 mg PO BID #40 capsule Ferrous Sulfate 325 mg PO BIDWM #40 tablet HYDROcodone/Acet 5/325 mg [[place] 5-325 mg] 1 tab PO QID PRN #80 tablet PRN Reason: Pain Magnesium Oxide [Mag-Ox] 400 mg PO DAILY #40 tablet Megestrol Acetate [Megace] 400 mg PO BID #60 udc Melatonin 3 mg PO HS PRN #30 tablet PRN Reason: Insomnia Multivit/Ca/Min/Fe/FA [Thera M Plus] 1 tab PO DAILY #30 tablet
[2016-05-25] MEDS: traZODone 50 MG TABLET PO SCH (21:13)
[2016-05-26] MEDS: *HR* OxyCODONE Immed Rel 5 MG TABLET PO SCH ×6 (00:27→22:04)
[2016-05-26] MEDS: Megestrol Acetate 400 MG/10 ML UDC PO SCH ×2 (07:50→22:03)
[2016-05-26] MEDS: Multivit/Ca/Min/Fe/FA 1 TAB TABLET PO SCH (07:50)
[2016-05-26] MEDS: Calcium Acetate 667 MG CAPSULE PO SCH ×3 (07:50→17:18)
[2016-05-26] MEDS: Folic Acid 1 MG TABLET PO SCH (07:50)
[2016-05-26] MEDS: Magnesium Oxide 400 MG TABLET PO SCH ×2 (07:50→22:02)
[2016-05-26] MEDS: Ascorbic Acid 500 MG TABLET PO SCH ×2 (07:50→17:17)
[2016-05-26] MEDS: Diltiazem CD (24hr) 180 MG CAPSULE PO SCH (07:51)
[2016-05-26] MEDS: Metoprolol XL (24 HR) Succ 50 MG TAB.ER.24H PO SCH (07:52)
[2016-05-26] MEDS: Budesonide/Formoterol 160/4.5 MDI IH SCH ×2 (09:51→23:25)
--- NOTE | 2016-05-26 14:50 | Internal Med Progress Note ---
Date of Encounter: 05/26/16 Time of Encounter: 14:00 - Assessment and plan (1) Anemia secondary to renal failure Current Visit: Yes Status: Acute Assessment and plan: Reviewing iron study. We will add Venofer. After iron infusion will give aranesp, Check H/H next AM (2) Malnutrition of moderate degree Current Visit: Yes Status: Acute Assessment and plan: Counseling on nutrition, check albumin and prealbumin, high protein diet, nutritional consult on board. This is most likely what causing third spacing and massive lower extremity edema secondary to hypoalbuminemia Repeat echo 05/22, EF 50-55%, normal left ventricular size and systolic function. Moderate to severe tricuspid regurgitation ,Estimated RVSP 54 mmHg Moderate pulmonary hypertension. There is evidence of a PFO by color Doppler (3) Hypoalbuminemia Current Visit: Yes Status: Acute (4) Swelling of both lower extremities Current Visit: Yes Status: Acute Assessment and plan: Secondary to venous insufficiency and hypoalbuminemia compression stocking and high protein diet (5) Vitamin B12 deficiency (dietary) anemia Current Visit: Yes Status: Acute Assessment and plan: At vitamin B12 1000 g once daily intramuscular for 7 days then once weekly - Time Spent With Patient Greater than 35 minutes - Subjective Interval history: Patient is complaining of pain in bilateral feet . Progressive massive swelling bilateral lower extremities, normal bowel movement. Patient denies any fever or chills. He is complaining of generalized weakness - Constitutional Vitals: Temp Pulse Resp BP Pulse Ox 98.9 F 108 14 105/71 94 L 05/26/16 10:42 05/26/16 10:42 05/26/16 10:42 05/26/16 10:42 05/26/16 10:42 General appearance: Present: A&O X 3, pleasant, no acute distress, answers questions appropriately - Head Head exam: Present: atraumatic, normocephalic - Neck Neck exam general surgery: Present: supple, trachea midline. Absent: lymphadenopathy - Respiratory Respiratory exam: Present: decreased breath sounds. Absent: accessory muscle use, rales, rhonchi, wheezes - Cardiovascular Cardiovascular exam: Present: diastolic murmur, irregular rhythm, +S1, +S2. Absent: gallop, rubs, systolic murmur - GI/Abdominal GI/Abdominal exam: Present: normal bowel sounds, soft, no peritoneal signs. Absent: distended, tenderness - Extremities Exam Extremities exam: Present: warm, radial pulses palpable and symetrical. Absent : calf tenderness, cyanotic, pedal edema Internal Medicine: Result - Labs CBC & Chem 7: 05/25/16 05:47 05/25/16 05:47 - ABG Interpretation ABG results: PT/INR, D-dimer PT 12.4 Seconds (9.4-12.1) H 05/12/16 05:41 - VTE Documentation of Mechanical Device: Graduated compression elastic hosiery Consult Discharge Plan - Plan Instructions: Renal Failure Diet (GEN) Referrals: Julieth Carias PAC [Physician Fuel Efficient Aircraft Designer] - 05/27/16 2:15 pm Eitan Kelley DO [Partnered Physician] - (f/u in 2-4 months, CHAVO on CKD) Marisa Dobbs, BUNG REMOVER [Primary Care Provider] - Rod Chan MD [Partnered Physician] - (2-4 weeks, pulmonary hypertension) Tanner Jaquez MD [Partnered Physician] - 05/29/16 1:30 pm Prescriptions: Budesonide/Formoterol 160/4.5 [Symbicort 160/4.5] 2 puff IH BIDR #1 inhaler Docusate [Colace] 100 mg PO BID #40 capsule Ferrous Sulfate 325 mg PO BIDWM #40 tablet HYDROcodone/Acet 5/325 mg [[place] 5-325 mg] 1 tab PO QID PRN #80 tablet PRN Reason: Pain Magnesium Oxide [Mag-Ox] 400 mg PO DAILY #40 tablet Megestrol Acetate [Megace] 400 mg PO BID #60 udc Melatonin 3 mg PO HS PRN #30 tablet PRN Reason: Insomnia Multivit/Ca/Min/Fe/FA [Thera M Plus] 1 tab PO DAILY #30 tablet
[2016-05-26] MEDS: Iron Sucrose Complex 200 MG in 0.9 % Sodium Chloride 100 ML IVPB SCH (17:12)
[2016-05-26] MEDS: Thiamine (B-1) 100 MG TABLET PO SCH (17:17)
[2016-05-26] MEDS: Cyanocobalamin (B-12) 1,000 MCG/ML VIAL IM SCH (17:18)
[2016-05-26 18:05] LABS: Basophils % 0.3 %; Eosinophils # 0.1 K/mcL (0.0-0.6); Eosinophils % 0.7 %; Hematocrit 29.3 % (37.5-50.1); Lymphocytes # 0.6 K/mcL (0.6-4.6); Lymphocytes % 5.5 %; Mean Corpuscular HGB Conc 30.7 g/dL (31.6-35.5); Mean Corpuscular Hemoglobin 31.9 pg (28.0-33.3); Mean Corpuscular Volume 103.9 fL (83.0-100.0); Monocytes # 0.7 K/mcL (0.0-1.3); Monocytes % 7.2 %; Neutrophils # 8.8 K/mcL (1.6-8.9); Nucleated Red Blood Cells 0.3 /100 WBC (0); Platelet Count 464 K/mcL (140-400); Red Blood Count 2.82 M/mcL (4.19-5.50); Red Cell Distribution Width 15.7 % (11.5-14.5); Segmented Neutrophils % 85.3 %
[2016-05-26] MEDS: traZODone 50 MG TABLET PO SCH (22:02)
[2016-05-27] MEDS: *HR* OxyCODONE Immed Rel 5 MG TABLET PO SCH ×6 (02:11→21:24)
[2016-05-27] MEDS: Budesonide/Formoterol 160/4.5 MDI IH SCH ×2 (08:09→20:44)
[2016-05-27] MEDS: Multivit/Ca/Min/Fe/FA 1 TAB TABLET PO SCH (08:49)
[2016-05-27] MEDS: Diltiazem CD (24hr) 180 MG CAPSULE PO SCH (08:49)
[2016-05-27] MEDS: Calcium Acetate 667 MG CAPSULE PO SCH ×3 (08:49→16:50)
[2016-05-27] MEDS: Metoprolol XL (24 HR) Succ 50 MG TAB.ER.24H PO SCH (08:49)
[2016-05-27] MEDS: Megestrol Acetate 400 MG/10 ML UDC PO SCH ×2 (08:49→21:24)
[2016-05-27] MEDS: Cyanocobalamin (B-12) 1,000 MCG/ML VIAL IM SCH (08:50)
[2016-05-27] MEDS: Magnesium Oxide 400 MG TABLET PO SCH ×2 (08:50→21:23)
[2016-05-27] MEDS: Thiamine (B-1) 100 MG TABLET PO SCH (08:50)
[2016-05-27] MEDS: Ascorbic Acid 500 MG TABLET PO SCH ×2 (08:50→16:51)
[2016-05-27] MEDS: Folic Acid 1 MG TABLET PO SCH (08:50)
[2016-05-27] MEDS: Iron Sucrose Complex 200 MG in 0.9 % Sodium Chloride 100 ML IVPB SCH (09:04)
--- NOTE | 2016-05-27 09:48 | Internal Med Progress Note ---
Date of Encounter: 05/27/16 Time of Encounter: 08:55 - Assessment and plan (1) Anemia secondary to renal failure Current Visit: Yes Status: Acute Assessment and plan: Reviewing iron study. Continue Venofer. Patient had one dose of aranesp, hemoglobin is trending up Check H/H next AM (2) Malnutrition of moderate degree Current Visit: Yes Status: Acute (3) Hypoalbuminemia Current Visit: Yes Status: Acute Assessment and plan: Counseling again about high protein diet, will add appetite stimulant, elevated remeron, discontinue Megace in view of high risk of DVT (4) Swelling of both lower extremities Current Visit: Yes Status: Acute Assessment and plan: Secondary to venous insufficiency and hypoalbuminemia compression stocking and high protein diet improving (5) Vitamin B12 deficiency (dietary) anemia Current Visit: Yes Status: Acute Assessment and plan: At vitamin B12 1000 g once daily intramuscular for 7 days then once weekly (6) Gout Current Visit: Yes Status: Acute Qualifiers: Gout site: unspecified site Gout etiology: unspecified cause Chronicity: chronic Presence of tophus: without tophus Qualified Code(s): M1A.9XX0 - Chronic gout, unspecified, without tophus (tophi) - Time Spent With Patient Greater than 35 minutes - Subjective Interval history: Patient denies any chest pain or shortness of breath, is still continue to have swelling bilateral lower extremities. Pain bilateral feet. He stated he is eating better compared to yesterday - Constitutional Vitals: Temp Pulse Resp BP Pulse Ox 98.5 F 110 16 106/68 94 L 05/27/16 06:47 05/27/16 06:47 05/27/16 06:47 05/27/16 06:47 05/27/16 06:47 General appearance: Present: A&O X 3, pleasant, no acute distress, answers questions appropriately - Eye Eye exam: Present: EOMI, conjuntiva pink, sclera anicteric. Absent: scleral icterus - Respiratory Respiratory exam: Present: decreased breath sounds. Absent: accessory muscle use, rales, rhonchi, wheezes - Cardiovascular Cardiovascular exam: Present: RRR, +S1, +S2. Absent: gallop, rubs, systolic murmur - GI/Abdominal GI/Abdominal exam: Present: normal bowel sounds, soft, no peritoneal signs. Absent: distended, tenderness - Extremities Exam Extremities exam: Present: pedal edema (Positive 4 bilateral lower extremity edema), warm, radial pulses palpable and symetrical. Absent: calf tenderness, cyanotic - Neurological Exam Neurological exam: Present: CN II-XII intact, no focal deficits, pronater drift (Moving all 4 extremities), facial droop Internal Medicine: Result - Labs CBC & Chem 7: 05/26/16 17:57 05/25/16 05:47 Labs: Short CBC 05/26/16 Range/Units 17:57 WBC 10.3 (4.3-11.1) K/mcL Hgb 9.0 L (12.9-16.9) g/dL Hct 29.3 L (37.5-50.1) % Plt Count 464 H (140-400) K/mcL Neutrophils # 8.8 (1.6-8.9) K/mcL Liver Function 05/26/16 Range/Units 17:57 Albumin 2.2 L (3.5-5.0) g/dL - ABG Interpretation ABG results: PT/INR, D-dimer PT 12.4 Seconds (9.4-12.1) H 05/12/16 05:41 - VTE Documentation of Mechanical Device: Graduated compression elastic hosiery Consult Discharge Plan - Plan Instructions: Renal Failure Diet (GEN) Referrals: Julieth Carias PAC [Physician Manager Of Marketing] - 05/27/16 2:15 pm Eitan Kelley DO [Partnered Physician] - (f/u in 2-4 months, CHAVO on CKD) Marisa Dobbs CNP [Primary Care Provider] - Rod Chan MD [Partnered Physician] - (2-4 weeks, pulmonary hypertension) Tanner Jaquez MD [Partnered Physician] - 05/29/16 1:30 pm Prescriptions: Budesonide/Formoterol 160/4.5 [Symbicort 160/4.5] 2 puff IH BIDR #1 inhaler Docusate [Colace] 100 mg PO BID #40 capsule Ferrous Sulfate 325 mg PO BIDWM #40 tablet HYDROcodone/Acet 5/325 mg [[place] 5-325 mg] 1 tab PO QID PRN #80 tablet PRN Reason: Pain Magnesium Oxide [Mag-Ox] 400 mg PO DAILY #40 tablet Megestrol Acetate [Megace] 400 mg PO BID #60 udc Melatonin 3 mg PO HS PRN #30 tablet PRN Reason: Insomnia Multivit/Ca/Min/Fe/FA [Thera M Plus] 1 tab PO DAILY #30 tablet
--- NOTE | 2016-05-27 12:59 | Orthopedics Progress Note ---
Date of Encounter: 05/27/16 Time of Encounter: 12:30 - Assessment and Plan (1) Closed right femoral fracture Current Visit: Yes Status: Acute POW#2 [place] were removed today without complication and new dressings applied. Continue therapy, WBAT. Will obtain xrays of the hip today to check hardware placement. Continue pain control per hospitalist. Will f/up with Dr. Stroud in [facility] on 06/24/16 at 1:10pm. Qualifiers: Encounter type: initial encounter Femur location: neck Qualified Code(s) : S72.001A - Fracture of unspecified part of neck of right femur, initial encounter for closed fracture Subjective Principal diagnosis: POW#2 S/P right hip hemiarthroplasty Interval history: Patient doing well today with no concerns today. He was supposed to be seen in the office today for his POW#2 appt. Pain tolerable. Denies calf pain. Denies any numbness or tingling to lower extremities but has had moderate swelling to lower extremities. Doppler last week negative for DVT. Patient was up in chair eating lunch on exam. States he has been doing therapy twice a day with him and just awaiting placement to [facility]. Objective Vital signs: Vital Signs Temp Pulse Resp BP Pulse Ox 05/27/16 11:12 97.9 F 129 16 111/65 97 05/27/16 06:47 98.5 F 110 16 106/68 94 L 05/27/16 05:45 97.9 F 110 18 108/59 96 05/27/16 00:37 98.6 F 96 20 110/70 96 05/26/16 23:25 15 91 L 05/26/16 20:00 98.3 F 90 16 115/71 92 L 05/26/16 14:37 98.5 F 104 16 107/68 95 Intake and Output 05/26/16 05/27/16 05/27/16 23:59 07:59 15:59 Intake Total 310 / 310 100 / 100 Output Total 200 / 200 475 / 475 25 / 25 Balance 110 / 110 -375 / -375 -25 / -25 Intake: IV Fluids 110 / 110 Venofer 200 MG In 0.9 % 110 / 110 Sodium Chloride 100 ML @ 200 mls/hr IVPB DAILY LUDIN Rx#:[id number] Oral 200 / 200 100 / 100 Output: Urine 200 / 200 475 / 475 25 / 25 Other: Stool Size Small Stool Consistency soft Stool Color Brown # Urine Diapers 1 Incision: healing (sam intact with no erythema or drainage), clean and dry - Labs CBC & BMP: 05/26/16 17:57 05/25/16 05:47 Labs: Abnormal lab results RBC 2.82 M/mcL (4.19-5.50) L 05/26/16 17:57 Hgb 9.0 g/dL (12.9-16.9) L 05/26/16 17:57 Hct 29.3 % (37.5-50.1) L 05/26/16 17:57 MCV 103.9 fL (83.0-100.0) H 05/26/16 17:57 MCHC 30.7 g/dL (31.6-35.5) L 05/26/16 17:57 RDW 15.7 % (11.5-14.5) H 05/26/16 17:57 Plt Count 464 K/mcL (140-400) H 05/26/16 17:57 MPV 9.0 fL (9.4-12.4) L 05/26/16 17:57 Band Neutrophils % 34.0 % (0-4) H 05/16/16 04:58 Nucleated RBCs/100 WBC 0.3 /100 WBC (0) H 05/26/16 17:57 Reactive Lymphocytes Present (Not Present) A 05/13/16 05:54 Large Platelets Present (Not Present) A 05/13/16 05:54 Polychromasia 1+ (Not Present) A 05/13/16 05:54 Hypochromasia Present (Not Present) A 05/17/16 06:18 Basophilic Stippling 1+ (Not Present) A 05/13/16 05:54 Microcytosis Present (Not Present) A 05/12/16 05:41 Rouleaux Present (Not Present) A 05/17/16 06:18 PT 12.4 Seconds (9.4-12.1) H 05/12/16 05:41 Potassium 4.9 mEq/L (3.5-4.5) H 05/25/16 05:47 BUN 34 mg/dL (8-26) H 05/25/16 05:47 Creatinine 1.67 mg/dL (0.72-1.25) H 05/25/16 05:47 Est GFR ( Amer) 48 (> 60) L 05/25/16 05:47 Est GFR (Non-Af Amer) 40 (> 60) L 05/25/16 05:47 Glucose 126 mg/dL (70-99) H 05/25/16 05:47 POC Glucose 122 (58-89) H 05/14/16 07:37 Uric Acid 8.2 mg/dL (3.5-7.2) H 05/26/16 17:57 Ionized Calcium 1.09 mmol/L (1.15-1.35) L 05/12/16 05:41 Iron 19 mcg/dL (65-175) L 05/13/16 05:54 % Saturation 8 % (20-55) L 05/13/16 05:54 Transferrin 172 mg/dL (174-364) L 05/13/16 05:54 B-Natriuretic Peptide 313 pg/mL (0-100) H 05/11/16 11:32 Serum Total Protein 5.3 g/dL (6.0-8.3) L 05/22/16 04:55 Albumin 2.2 g/dL (3.5-5.0) L 05/26/16 17:57 Albumin/Globulin Ratio 0.6 (1.1-2.2) L 05/22/16 04:55 Prealbumin 12.0 mg/dL (18.0-45.0) L 05/26/16 15:21 Vitamin B12 154 pg/mL (213-816) L 05/13/16 04:56 25-OH Vitamin D Total 28 ng/mL (30-80) L 05/13/16 04:56 PTH Intact 464.2 pg/ml (8.5-72.5) H 05/13/16 05:54 Urine Bilirubin Moderate (Negative) H 05/11/16 13:20 Ur Leukocyte Esterase Trace (Negative) H 05/11/16 13:20 Urine Microscopic RBC 3-5 per hpf (0-3) H 05/11/16 13:20 Ur Squamous Epith Cells Many per lpf (None-Few) H 05/11/16 13:20 Ur Culture Indicated? YES (NO) A 05/11/16 13:20 Ur Total Protein 24 Hr 370 mg/day (0-299) H 05/14/16 04:18 Protein/Creatinin Ratio 0.26 mg/mg (0-0.20) H 05/14/16 04:18 Ur Urea Nitrogen 24 Hr 9.7 g/day (12.0-20.0) L 05/14/16 04:18 Urine Total Protein 27 mg/dL (1-14) H 05/14/16 04:18 - VTE Documentation of Mechanical Device: Graduated compression elastic hosiery Consult Discharge Plan - Plan Instructions: Renal Failure Diet (GEN) Referrals: Julieth Carias, DM [Physician Senior Military Analyst] - 05/27/16 2:15 pm Eitan Kelley DO [Partnered Physician] - (f/u in 2-4 months, CHAVO on CKD) Marisa Dobbs CNP [Primary Care Provider] - Rod Chan MD [Partnered Physician] - (2-4 weeks, pulmonary hypertension) Tanner Jaquez MD [Partnered Physician] - 05/29/16 1:30 pm Prescriptions: Budesonide/Formoterol 160/4.5 [Symbicort 160/4.5] 2 puff IH BIDR #1 inhaler Docusate [Colace] 100 mg PO BID #40 capsule Ferrous Sulfate 325 mg PO BIDWM #40 tablet HYDROcodone/Acet 5/325 mg [[place] 5-325 mg] 1 tab PO QID PRN #80 tablet PRN Reason: Pain Magnesium Oxide [Mag-Ox] 400 mg PO DAILY #40 tablet Megestrol Acetate [Megace] 400 mg PO BID #60 udc Melatonin 3 mg PO HS PRN #30 tablet PRN Reason: Insomnia Multivit/Ca/Min/Fe/FA [Thera M Plus] 1 tab PO DAILY #30 tablet
[2016-05-27] MEDS: traZODone 50 MG TABLET PO SCH (21:23)
[2016-05-28] MEDS: *HR* OxyCODONE Immed Rel 5 MG TABLET PO SCH ×6 (00:53→20:58)
[2016-05-28] MEDS: Budesonide/Formoterol 160/4.5 MDI IH SCH ×2 (08:06→20:15)
[2016-05-28] MEDS: Folic Acid 1 MG TABLET PO SCH (09:17)
[2016-05-28] MEDS: Diltiazem CD (24hr) 180 MG CAPSULE PO SCH (09:17)
[2016-05-28] MEDS: Ascorbic Acid 500 MG TABLET PO SCH ×2 (09:17→15:52)
[2016-05-28] MEDS: Magnesium Oxide 400 MG TABLET PO SCH ×2 (09:17→20:57)
[2016-05-28] MEDS: Metoprolol XL (24 HR) Succ 50 MG TAB.ER.24H PO SCH (09:18)
[2016-05-28] MEDS: Multivit/Ca/Min/Fe/FA 1 TAB TABLET PO SCH (09:18)
[2016-05-28] MEDS: Thiamine (B-1) 100 MG TABLET PO SCH (09:18)
[2016-05-28] MEDS: Calcium Acetate 667 MG CAPSULE PO SCH ×3 (09:18→15:52)
[2016-05-28] MEDS: Cyanocobalamin (B-12) 1,000 MCG/ML VIAL IM SCH (09:18)
[2016-05-28] MEDS: Megestrol Acetate 400 MG/10 ML UDC PO SCH ×2 (09:19→20:57)
[2016-05-28] MEDS: Iron Sucrose Complex 200 MG in 0.9 % Sodium Chloride 100 ML IVPB SCH (09:19)
[2016-05-28] MEDS ORDERED: Fluconazole 100 MG TABLET PO ONE (13:40)
--- NOTE | 2016-05-28 13:45 | Internal Med Progress Note ---
Date of Encounter: 05/28/16 Time of Encounter: 13:15 - Assessment and plan (1) Anemia secondary to renal failure Current Visit: Yes Status: Acute Assessment and plan: Had 2 doses of Venofer. Patient had one dose of aranesp, check CBC next morning (2) Malnutrition of moderate degree Current Visit: Yes Status: Acute Assessment and plan: Market improvement of his eating will checked next morning (3) Hypoalbuminemia Current Visit: Yes Status: Acute (4) Swelling of both lower extremities Current Visit: Yes Status: Acute Assessment and plan: Secondary to venous insufficiency and hypoalbuminemia discussed with staff Manish wrap lower extremities (5) Vitamin B12 deficiency (dietary) anemia Current Visit: Yes Status: Acute (6) Gout Current Visit: Yes Status: Acute Assessment and plan: Continue allopurinol Qualifiers: Gout site: unspecified site Gout etiology: unspecified cause Chronicity: chronic Presence of tophus: without tophus Qualified Code(s): M1A.9XX0 - Chronic gout, unspecified, without tophus (tophi) (7) Raul infection of genital region Current Visit: Yes Status: Acute Assessment and plan: Add nystatin Powder added diflucan 1 dose - Time Spent With Patient 25 - 35 minutes (Discussed with patient and family about compression stocking about nutrition and about deep breathing about Diflucan and nystatin , cut back on laxatives) - Subjective Interval history: Patient denies any chest pain or shortness of breath, had loose bowel movement last night. Had erythema around his groin area - Constitutional Vitals: Temp Pulse Resp BP Pulse Ox 97.7 F 105 20 107/62 93 L 05/28/16 11:12 05/28/16 11:12 05/28/16 11:12 05/28/16 11:12 05/28/16 11:12 General appearance: Present: A&O X 3, pleasant, no acute distress, answers questions appropriately - Head Head exam: Present: atraumatic, normocephalic - Neck Neck exam general surgery: Present: supple, trachea midline. Absent: lymphadenopathy - Respiratory Respiratory exam: Present: decreased breath sounds. Absent: accessory muscle use, rales, rhonchi, wheezes - Cardiovascular Cardiovascular exam: Present: RRR, +S1, +S2. Absent: diastolic murmur, gallop, rubs, systolic murmur - GI/Abdominal GI/Abdominal exam: Present: normal bowel sounds, soft, no peritoneal signs. Absent: distended, tenderness - Extremities Exam Extremities exam: Present: pedal edema (Positive bilateral lower extremity edema), warm, radial pulses palpable and symetrical. Absent: calf tenderness, cyanotic - Skin Skin exam: Present: erythema (Erythema around his groin area, pattern looks like raul infection), intact Internal Medicine: Result - Labs CBC & Chem 7: 05/26/16 17:57 05/25/16 05:47 - ABG Interpretation ABG results: PT/INR, D-dimer PT 12.4 Seconds (9.4-12.1) H 05/12/16 05:41 - Impressions Impressions Hip X-Ray 05/27/16 12:57 IMPRESSION: Postop right hip arthroplasty as above D/ / Micha Jiang MD / Micha Jiang MD Interpreting Provider: Micha Jiang MD - VTE Documentation of Mechanical Device: Intermittent pneumatic compression device Consult Discharge Plan - Plan Instructions: Renal Failure Diet (GEN) Referrals: Julieth Carias PAC [Physician Business Advisor] - 05/27/16 2:15 pm Eitan Kelley DO [Partnered Physician] - (f/u in 2-4 months, CHAVO on CKD) Marisa Dobbs, HOT PACKER [Primary Care Provider] - Rod Chan MD [Partnered Physician] - (2-4 weeks, pulmonary hypertension) Tanner Jaquez MD [Partnered Physician] - 05/29/16 1:30 pm Prescriptions: Budesonide/Formoterol 160/4.5 [Symbicort 160/4.5] 2 puff IH BIDR #1 inhaler Docusate [Colace] 100 mg PO BID #40 capsule Ferrous Sulfate 325 mg PO BIDWM #40 tablet HYDROcodone/Acet 5/325 mg [[place] 5-325 mg] 1 tab PO QID PRN #80 tablet PRN Reason: Pain Magnesium Oxide [Mag-Ox] 400 mg PO DAILY #40 tablet Megestrol Acetate [Megace] 400 mg PO BID #60 udc Melatonin 3 mg PO HS PRN #30 tablet PRN Reason: Insomnia Multivit/Ca/Min/Fe/FA [Thera M Plus] 1 tab PO DAILY #30 tablet
[2016-05-28] MEDS: Nystatin POWDER 30 GM BOTTLE TP SCH ×2 (15:52→21:03)
[2016-05-28] MEDS: Mirtazapine 15 MG TABLET PO SCH (20:58)
[2016-05-29] MEDS: *HR* OxyCODONE Immed Rel 5 MG TABLET PO SCH ×5 (01:23→16:01)
[2016-05-29 07:02] LABS: Eosinophils # 0.2 K/mcL (0.0-0.6); Hematocrit 25.8 % (37.5-50.1); Hemoglobin 7.8 g/dL (12.9-16.9); Mean Corpuscular HGB Conc 30.2 g/dL (31.6-35.5); Mean Corpuscular Hemoglobin 31.7 pg (28.0-33.3); Mean Corpuscular Volume 104.9 fL (83.0-100.0); Mean Platelet Volume 8.6 fL (9.4-12.4); Nucleated Red Blood Cells 1.2 /100 WBC (0); Platelet Count 389 K/mcL (140-400); Red Blood Count 2.46 M/mcL (4.19-5.50); Red Cell Distribution Width 15.8 % (11.5-14.5)
[2016-05-29 07:19] LABS: Calcium 9.1 mg/dL (8.6-10.8); Potassium 5.4 mEq/L (3.5-4.5)
[2016-05-29] MEDS: Ascorbic Acid 500 MG TABLET PO SCH ×2 (07:56→16:01)
[2016-05-29] MEDS: Magnesium Oxide 400 MG TABLET PO SCH ×2 (07:57→21:01)
[2016-05-29] MEDS: Thiamine (B-1) 100 MG TABLET PO SCH (07:57)
[2016-05-29] MEDS: Megestrol Acetate 400 MG/10 ML UDC PO SCH (07:57)
[2016-05-29] MEDS: Multivit/Ca/Min/Fe/FA 1 TAB TABLET PO SCH (07:57)
[2016-05-29] MEDS: Metoprolol XL (24 HR) Succ 50 MG TAB.ER.24H PO SCH (07:57)
[2016-05-29] MEDS: Diltiazem CD (24hr) 180 MG CAPSULE PO SCH (07:57)
[2016-05-29] MEDS: Nystatin POWDER 30 GM BOTTLE TP SCH ×3 (07:58→21:01)
[2016-05-29] MEDS: Cyanocobalamin (B-12) 1,000 MCG/ML VIAL IM SCH (07:58)
[2016-05-29] MEDS: Folic Acid 1 MG TABLET PO SCH (07:58)
[2016-05-29] MEDS: Calcium Acetate 667 MG CAPSULE PO SCH ×3 (07:58→16:01)
[2016-05-29 08:21] LABS: Lymphocytes # 0.8 K/mcL (0.6-4.6); Monocytes # 0.3 K/mcL (0.0-1.3); Neutrophils # 8.5 K/mcL (1.6-8.9)
[2016-05-29 08:22] LABS: Platelet Estimate Normal (Normal)
[2016-05-29 08:23] LABS: Anisocytosis 1+ (Not Present); Macrocytosis Present (Not Present); Polychromasia 2+ (Not Present)
[2016-05-29] MEDS: Budesonide/Formoterol 160/4.5 MDI IH SCH ×2 (10:27→21:01)
--- NOTE | 2016-05-29 19:13 | Internal Med Progress Note ---
Date of Encounter: 05/29/16 Time of Encounter: 05:25 - Assessment and plan (1) Anemia secondary to renal failure Current Visit: Yes Status: Acute Assessment and plan: Will transfused 1 unit of blood in view of patient's symptom. Check stool for occult blood. In view of patient I am deficiency anemia with at another dose of iron tomorrow venofer. Add Lasix with blood transfusion (2) Malnutrition of moderate degree Current Visit: Yes Status: Acute Assessment and plan: Patient eating better (3) Hypoalbuminemia Current Visit: Yes Status: Acute Assessment and plan: Imporoving (4) Swelling of both lower extremities Current Visit: Yes Status: Acute (5) Vitamin B12 deficiency (dietary) anemia Current Visit: Yes Status: Acute (6) Gout Current Visit: Yes Status: Acute Qualifiers: Gout site: unspecified site Gout etiology: unspecified cause Chronicity: chronic Presence of tophus: without tophus Qualified Code(s): M1A.9XX0 - Chronic gout, unspecified, without tophus (tophi) (7) Maryann infection of genital region Current Visit: Yes Status: Acute - Time Spent With Patient 25 - 35 minutes (awaiting for placement for rehabilitation) - Subjective Interval history: Patient denies any chest , Feels tired , sob with mild exrthion , Lower exremites edema improving - Constitutional Vitals: Temp Pulse Resp BP Pulse Ox 98.0 F 78 16 105/71 98 05/29/16 14:00 05/29/16 14:00 05/29/16 14:00 05/29/16 14:00 05/29/16 14:00 General appearance: Present: A&O X 3, pleasant, no acute distress, answers questions appropriately - Neck Neck exam general surgery: Present: supple, trachea midline. Absent: lymphadenopathy - Respiratory Respiratory exam: Present: decreased breath sounds. Absent: accessory muscle use, rales, rhonchi, wheezes - Cardiovascular Cardiovascular exam: Present: RRR, +S1, +S2. Absent: diastolic murmur, gallop, rubs, systolic murmur - Extremities Exam Extremities exam: Present: pedal edema (Positive 2 in bilateral thigh decreased edema bilateral legs with compression therapy), warm, radial pulses palpable and symetrical. Absent: calf tenderness, cyanotic Internal Medicine: Result - Labs CBC & Chem 7: 05/29/16 06:30 05/29/16 06:30 Labs: Short CBC 05/29/16 Range/Units 06:30 WBC 9.9 (4.3-11.1) K/mcL Hgb 7.8 L (12.9-16.9) g/dL Hct 25.8 L (37.5-50.1) % Plt Count 389 (140-400) K/mcL Neutrophils # 8.5 (1.6-8.9) K/mcL BMP 05/29/16 06:30 Sodium 133 L Potassium 5.4 H Chloride 104 Carbon Dioxide 24 BUN 36 H Creatinine 1.47 H Glucose 109 H Calcium 9.1 - ABG Interpretation ABG results: PT/INR, D-dimer PT 12.4 Seconds (9.4-12.1) H 05/12/16 05:41 - VTE Documentation of Mechanical Device: Graduated compression elastic hosiery Consult Discharge Plan - Plan Instructions: Renal Failure Diet (GEN) Referrals: Julieth Carias PAC [Physician Dulite Machine Bluer] - 05/27/16 2:15 pm Eitan Kelley DO [Partnered Physician] - (f/u in 2-4 months, CHAVO on CKD) Marisa Dobbs, NA [Primary Care Provider] - Rod Chan MD [Partnered Physician] - (2-4 weeks, pulmonary hypertension) Tanner Jaquez MD [Partnered Physician] - 05/29/16 1:30 pm Prescriptions: Budesonide/Formoterol 160/4.5 [Symbicort 160/4.5] 2 puff IH BIDR #1 inhaler Docusate [Colace] 100 mg PO BID #40 capsule Ferrous Sulfate 325 mg PO BIDWM #40 tablet HYDROcodone/Acet 5/325 mg [[place] 5-325 mg] 1 tab PO QID PRN #80 tablet PRN Reason: Pain Magnesium Oxide [Mag-Ox] 400 mg PO DAILY #40 tablet Megestrol Acetate [Megace] 400 mg PO BID #60 udc Melatonin 3 mg PO HS PRN #30 tablet PRN Reason: Insomnia Multivit/Ca/Min/Fe/FA [Thera M Plus] 1 tab PO DAILY #30 tablet
[2016-05-29] MEDS: Mirtazapine 15 MG TABLET PO SCH (21:01)
[2016-05-29] MEDS ORDERED: 0.9 % Sodium Chloride 250 ML ONE (23:13)
[2016-05-30] MEDS: *HR* OxyCODONE Immed Rel 5 MG TABLET PO PRN ×2 (03:05→07:51)
[2016-05-30] MEDS ORDERED: Furosemide 40 MG/4 ML VIAL IVP ONE (03:19)
[2016-05-30] MEDS: Cyanocobalamin (B-12) 1,000 MCG/ML VIAL IM SCH (07:49)
[2016-05-30] MEDS: Magnesium Oxide 400 MG TABLET PO SCH (07:50)
[2016-05-30] MEDS: Ascorbic Acid 500 MG TABLET PO SCH (07:50)
[2016-05-30] MEDS: Multivit/Ca/Min/Fe/FA 1 TAB TABLET PO SCH (07:50)
[2016-05-30] MEDS: Folic Acid 1 MG TABLET PO SCH (07:50)
[2016-05-30] MEDS: Thiamine (B-1) 100 MG TABLET PO SCH (07:50)
[2016-05-30] MEDS: Metoprolol XL (24 HR) Succ 50 MG TAB.ER.24H PO SCH (07:50)
[2016-05-30] MEDS: Diltiazem CD (24hr) 180 MG CAPSULE PO SCH (07:50)
[2016-05-30] MEDS: Calcium Acetate 667 MG CAPSULE PO SCH ×2 (07:50→11:31)
[2016-05-30] MEDS: Nystatin POWDER 30 GM BOTTLE TP SCH ×2 (07:52→14:50)
[2016-05-30] MEDS ORDERED: Megestrol Acetate 400 MG/10 ML UDC PO SCH (09:00)
[2016-05-30] MEDS: Budesonide/Formoterol 160/4.5 MDI IH SCH (09:57)
[2016-05-30 12:51] LABS: Hematocrit 30.7 % (37.5-50.1); Hemoglobin 9.3 g/dL (12.9-16.9)
--- NOTE | 2016-05-30 15:41 | Discharge Summary ---
Date of Encounter: 05/30/16 Time of Encounter: 15:39 - Discharge Diagnosis (1) Anemia secondary to renal failure Priority: Secondary Status: Acute Comments: May need iron infusions outpatient as well as Aranesp . Need to follow up with renal clinic (2) Malnutrition of moderate degree Priority: Secondary Status: Acute Comments: Continue nutritional supplement appetite stimulant added (3) Hypoalbuminemia Priority: Secondary Status: Acute (4) Swelling of both lower extremities Priority: Secondary Status: Acute Comments: Continue compression therapy Lasix and high protein diet (5) Vitamin B12 deficiency (dietary) anemia Priority: Secondary Status: Acute Comments: Continue intramuscular vitamin B12 for 4 more days then once weekly (6) Gout Priority: Secondary Status: Acute Qualifiers: Gout site: unspecified site Gout etiology: unspecified cause Chronicity: chronic Presence of tophus: without tophus Qualified Code(s): M1A.9XX0 - Chronic gout, unspecified, without tophus (tophi) (7) Maryann infection of genital region Priority: Secondary Status: Acute Comments: Nystatin powder pelvic area (8) Acute on chronic renal failure Priority: Primary Status: Acute (9) Closed right femoral fracture Priority: Primary Status: Acute Qualifiers: Encounter type: initial encounter Femur location: neck Qualified Code(s) : S72.001A - Fracture of unspecified part of neck of right femur, initial encounter for closed fracture (10) Community acquired pneumonia Priority: Secondary Status: Acute (11) Atrial fibrillation Priority: Secondary Status: Chronic Qualifiers: Atrial fibrillation type: chronic Qualified Code(s): I48.2 - Chronic atrial fibrillation (12) Pulmonary hypertension Priority: Secondary Status: Chronic - Discharge Medications Prescriptions: OxyCODONE Immed Rel [Roxicodone 5 MG] 5 mg PO Q6HR PRN #40 tablet PRN Reason: Moderate Pain Allopurinol [Zyloprim] 200 mg PO DAILY #30 tablet Budesonide/Formoterol 160/4.5 [Symbicort 160/4.5] 2 puff IH BIDR #1 inhaler Calcium Acetate [Phos-LO] 667 mg PO TIDWM #60 capsule Calcium Carbonate [Tums] 1,000 mg PO TID #30 tab.chew Cyanocobalamin (B-12) [Vitamin B12] 1,000 mcg IM DAILY #10 vial Darbepoetin [Aranesp] 40 mcg SQ QWEEK #10 syringe Docusate [Colace] 100 mg PO BID #40 capsule Ergocalciferol (VITAMIN D2) [Drisdol (50,000 Unit)] 50,000 unit PO QWEEK #15 capsule Ferrous Sulfate 325 mg PO BIDWM #40 tablet Magnesium Oxide [Mag-Ox] 400 mg PO DAILY #40 tablet Mirtazapine [Remeron] 7.5 mg PO HS #30 tablet Multivit/Ca/Min/Fe/FA [Thera M Plus] 1 tab PO DAILY #30 tablet Nystatin POWDER [Nystop] 1 appl TP TID #1 bottle Thiamine (B-1) [Vitamin B-1] 200 mg PO DAILY #180 tablet Home Medications: Calcitriol [Rocaltrol] 0.25 mcg PO DAILY 05/11/16 [History] Diltiazem HCl [Cartia Xt] 240 mg PO DAILY 05/11/16 [History] Famotidine [Acid Instructional Assistant] 10 mg PO DAILY 05/11/16 [History] Folic Acid 1,200 mcg PO DAILY 05/11/16 [History] Metoprolol Succinate [Toprol Xl] 100 mg PO BID 05/11/16 [History] Tamsulosin [Flomax] 0.4 mg PO DAILY 05/11/16 [History] TraZODone 50 mg PO HS 05/11/16 [History] Budesonide/Formoterol 160/4.5 [Symbicort 160/4.5] 2 puff IH BIDR #1 inhaler [Rx] Docusate [Colace] 100 mg PO BID #40 capsule 05/24/16 [Rx] Ferrous Sulfate 325 mg PO BIDWM #40 tablet 05/24/16 [Rx] Magnesium Oxide [Mag-Ox] 400 mg PO DAILY #40 tablet 05/24/16 [Rx] Multivit/Ca/Min/Fe/FA [Thera M Plus] 1 tab PO DAILY #30 tablet 05/24/16 [Rx] Allopurinol [Zyloprim] 200 mg PO DAILY #30 tablet 05/30/16 [Rx] Calcium Acetate [Phos-LO] 667 mg PO TIDWM #60 capsule 05/30/16 [Rx] Calcium Carbonate [Tums] 1,000 mg PO TID #30 tab.chew 05/30/16 [Rx] Cyanocobalamin (B-12) [Vitamin B12] 1,000 mcg IM DAILY #10 vial 05/30/16 [Rx] Darbepoetin [Aranesp] 40 mcg SQ QWEEK #10 syringe 05/30/16 [Rx] Ergocalciferol (VITAMIN D2) [Drisdol (50,000 Unit)] 50,000 unit PO QWEEK #15 capsule 05/30/16 [Rx] Megestrol Acetate [Megace] 400 mg PO DAILY #100 ml 05/30/16 [Rx] Mirtazapine [Remeron] 7.5 mg PO HS #30 tablet 05/30/16 [Rx] Nystatin POWDER [Nystop] 1 appl TP TID #1 bottle 05/30/16 [Rx] OxyCODONE Immed Rel [Roxicodone 5 MG] 5 mg PO Q6HR PRN #40 tablet 05/30/16 [Rx] Thiamine (B-1) [Vitamin B-1] 200 mg PO DAILY #180 tablet 05/30/16 [Rx] Allergies/Adverse Reactions: Allergies No Known Allergies Allergy (Verified 05/06/16 12:16) Date of admission: 05/11/16 13:05 Primary care physician: Marisa Dobbs CNP Consults: 05/26/16 17:05 Consult to Wound Care [CONS] Routine Reason for Consult: Bruising left heel Call Completed: No 05/11/16 14:40 Consult to Occupational Therapy [CONS] Routine Comment: Evaluate, develop and implement POC Consult to Physical Therapy [CONS] Routine Comment: Evaluate, develop and implement POC Consult to Vice President Quality (W&C) [CONS] Routine Reason For Exam: Reason for SW Consult: DC plannin. will likely need inpaient rehab. 05/12/16 12:05 Consult to Nutrition [CONS] Routine Comment: patient with poor po intake and low albumin. Consulting Provider: NUTRITION Reason for Dietary Consult: Supplemental Nutrition 05/14/16 14:03 Consult to Psychiatry [CONS] Stat Consulting Provider: Psychiatry Jessica Reason for Consult: evaluation of depression. Teary/Sad, as per has been withdrawing for the last two years Call Completed: Yes 05/17/16 14:26 Consult to Invasive Line Access Team [CONS] Routine Reason for Consult: epiv placement Line Type: EPIV 05/21/16 09:26 Consult to Pulmonology [CONS] Routine Consulting Provider: [facility] Reason for Consult: Severe Pulm. HTN; Had right lower lobectomy @ age 11. Works with horses and hay. Has hypoxia now Call Completed: Yes Discharging clinician: Nasreen Scott - Patient Status Disposition: Transfer SNF Condition: Fair - Discharge Instructions Instructions: Renal Failure Diet (GEN) Follow Up With: Julieth Carias PAC [Physician Composition Board Press Operator] - 05/27/16 2:15 pm Eitan Kelley DO [Partnered Physician] - (f/u in 2-4 months, CHAVO on CKD) Marisa Dobbs CNP [Primary Care Provider] - Rod Chan MD [Partnered Physician] - (2-4 weeks, pulmonary hypertension) Tanner Jaquez MD [Partnered Physician] - 05/29/16 1:30 pm - Diet and Activity Activity: ambulate only with your walker Diet: advance to your usual diet ( Low Potassium diet) Hospital course: Mr. 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 He presented to [facility] for further evaluation, with imaging disclosing a right femoral neck fracture. Patient was optimized preoperatively prior to right hip repair.Nephrology service consulted for [facility]VAO on CKD, with suspected ATN due to multiple etiologies. Diuretics were held, and patient was followed closely with judicious IV fluids. Cardiology service consulted for preop cardiovascular clearance. Patient does have history of A. fib status post ablation without recurrence and he was not on anticoagulation secondary to hemorrhagic strokes mentioned above. Patient was deemed a moderate risk patient for possible urgent moderate risk hip surgery.Orthopedic surgery was consulted for right hip femoral neck fracture. The patient underwent right hip arthroplasty on 05/12/2016.His postoperative course would include improving urine output and creatinine.Psychiatry service was consulted for altered mental status in the setting of history of depression. The patient denied any thoughts of harm to self or others. Psychiatry recommended discontinuing temazepam for sleep . Would recommended for outpatient follow-up with a psychiatrist once his medical issues have been addressed. Patient had trouble with sleep and appetite remeron was added to help with his appetite and help with sleep ,I discontinue all his benzodiazepine as well as melatonin .Patient's creatinine continued to improve towards his baseline, nephrology recommended for BMP in 5-7 days after discharge , with results to [facility] and his PCP. Recommended for follow- up with Dr. Kelley next 2- 4 months if not already scheduled. Patient would sustain increasing leukocytosis, accompanied by bandemia, with CT chest consistent with pneumonia. Patient was started on Levaquin monotherapy.He would commence on Symbicort and breathing treatments. Orthopedic service would reevaluate patient for drainage, with note disclosing no erythema or signs of infection. Recommend to hold anticoagulation and obtain Dopplers of lower extremities. Dopplers disclose no ultrasound evidence of DVT.The patient did undergo PT and OT evaluations, with recommendation for rehabilitation. Echo noted severe pulmonary hypertension, ejection fraction 50-55%, severely dilated right atrium. RVSP 63mmHg ulmonology consulted for pulmonary hypertension, suspicion for group 2 pulmonary venous hypertension. Recommend for repeat echo and complete with bubble study. Also continue diuresis.Repeat echo 05/22/2016, EF 50-55%, normal left ventricular size and systolic function. Moderate to severe tricuspid regurgitation Estimated RVSP 54 mmHg ,Moderate pulmonary hypertension. There is evidence of a PFO by color Doppler.Pulmonary recommendation to continue diuresis, suspect contribution of the PFO recurrent hypoxemia is unclear but doubt it is having much of an effect at this time.Patient continued diuresis, with interval transient hypotension, subsequently the diuresis was held. Patient did improve with blood pressure to 119/72, sitting up without any distress. His albumin is low at 1.6. Nutrition was on board and continued dietary supplement. Suspect that the patient may be having any effective diuresis due to low oncotic pressure from low albumin. Physical therapy and occupational therapy consultation, with recommendation for ECF rehabilitation. At time of discharge, patient was clinically improved, hemodynamically stable, progressing towards baseline, and agreeable with plan of care. Patient plan to discharge to Rehabilitation center . We were waiting for insurance approval , patient had iron deficiency anemia and anemia of chronic kidney disease. Received 1 unit of blood transfusion as well as IV iron therapy was started, Plan has been discussed with family that he needs to follow up as an outpatient with nephrology with the predialysis clinic for receiving aranesp as well as iron infusion as needed ,his hemoglobin today is stable, potassium was high, patient received Kayexalate ,will keep the patient on low potassium diet , discharged to rehabilitation, and have follow-up appointments with nephrology in 2-4 months, with BMP in 7 days. Patient will follow-up with pulmonology in 2 -4 weeks regarding his pulmonary hypertension. OARRS report was checked disclosing appropriate regimen and single provider. The patient did finish a five-day course of Levaquin. Changes to his home regimen include addition of Megace for appetite stimulation, change in Lasix to 40 mg by mouth daily. Adjusted in light of his hypotension and recovery from acute kidney injury. Patient was advised to hold it nephrotoxic agents including but not limited to NSAIDs such as ibuprofen Advil or Aleve Toradol. Patient was counseled to seek immediate medical attention for any new or worsening symptoms including but not limited to: Fever, chills, increased hip pain, chest pain, difficulty breathing , cough, darkened urine, lightheadedness, dizziness, and he voiced understanding. Again it is emphasized that the patient has chronic atrial fibrillation, but he is not an appropriate candidate for long-term anticoagulation due to history of recurrent falls and prior hemorrhagic strokes. - Time Spent with Patient Total time spent providing and/or coordinating discharge services: Greater than 30 minutes - Constitutional Vitals: Temp Pulse Resp BP Pulse Ox 97.6 F 83 16 103/62 97 05/30/16 11:12 05/30/16 11:12 05/30/16 11:12 05/30/16 11:12 05/30/16 11:12 General appearance: Present: A&O X 3, pleasant, no acute distress, answers questions appropriately - Head Head exam: Present: atraumatic, normocephalic - Respiratory Respiratory exam: Present: CTAB. Absent: accessory muscle use, rales, rhonchi, wheezes - Cardiovascular Cardiovascular exam: Present: RRR, +S1, +S2. Absent: diastolic murmur, gallop, rubs, systolic murmur - GI/Abdominal GI/Abdominal exam: Present: normal bowel sounds, soft, no peritoneal signs. Absent: distended, tenderness - VTE Documentation of Mechanical Device: Graduated compression elastic hosiery
[2016-05-30 15:44] VITALS: BP 113/70
== END 2016-05-30 16:35 | DRG 469 ==
LOC: EMEROO 10:36 → SUATTDRO 13:05 → 3NENU 13:05
PROVIDERS: ADMIT Internal Medicine; ATTEND Family Medicine